=== PATIENT | male | born 1945 | race Caucasian/White ===

== ENCOUNTER 2016-12-04 06:55 | Inpatient (IN) ==
--- NOTE | 2016-12-04 07:15 | History and Physical Update ---
Sedation H&P Update - History and Physical H&P was reviewed, the patient examined and there: are no changes in the patients condition since last H&P was completed. - Dictation Physical: refer to scanned H&P - Physical Exam Mental Status: alert and oriented Heart: regular rate and rhythm Lung: clear to auscultation Abdomen: within normal limits Vitals: within normal limits - Sedation Plan for Sedation: moderate Patient Consent: Procedure disscussed with patient and patinet has consented., Risks and benefits were discussed with patient,including infection,, bleeding, injury to surrounding structures, seizure, temporary nerve, Patient understands and accepts potential risks/benefits and agrees to, proceed. ASA Class: II Airway Assessment: Class II: Soft palate, uvula, fauces visible
[2016-12-04] MEDS ORDERED: POTASSIUM CHLORIDE RIDER 10 MEQ in PREMIX 1 EACH IV PRN (07:32)
[2016-12-04] MEDS ORDERED: ASPIRIN 325 MG TABLET PO ONE (07:32)
[2016-12-04] MEDS ORDERED: MAGNESIUM SULF RIDER 2 GM in PREMIX 1 EACH IV PRN (07:32)
[2016-12-04] MEDS ORDERED: DIAZEPAM 5 MG TABLET PO ONE (07:32)
[2016-12-04] MEDS ORDERED: diphenhydrAMINE CAP 25 MG CAPSULE PO ONE (07:32)
[2016-12-04] MEDS ORDERED: ASPIRIN 325 MG TABLET ONE (08:05)
[2016-12-04] MEDS ORDERED: DIAZEPAM 5 MG TABLET ONE (08:05)
[2016-12-04] MEDS ORDERED: diphenhydrAMINE CAP 25 MG CAPSULE ONE (08:05)
[2016-12-04] MEDS: SODIUM CHLORIDE 0.9% 1,000 ML IV SCH ×2 (08:07→17:12)
--- NOTE | 2016-12-04 08:34 | XRay Report ---
XR chest 1V portable Indication: Left heart catheterization, preprocedure evaluation Comparison: 11 November 2016 Findings: The heart and mediastinum are stable in size and configuration. The pulmonary vascularity is normal in caliber. No lung infiltrates, effusions, pneumothorax or other abnormality is demonstrated. Impression: No acute cardiopulmonary findings. PROCEDURE INTERPRETED AT [facility] DEPARTMENT OF RADIOLOGY Final Report Signed by: Dr. Bryan Becerril
[2016-12-04] MEDS ORDERED: HYDROmorphone 2 MG/1 ML VIAL ONE (08:35)
[2016-12-04] MEDS ORDERED: LIDOCAINE 1% 20 ML VIAL ONE (09:08)
[2016-12-04] MEDS ORDERED: HEPARIN/NACL 0.9% 2 UNITS/ML 1,000 ML IV ONE (09:08)
[2016-12-04] MEDS ORDERED: MIDAZOLAM 2 MG/2 ML VIAL ONE (09:22)
[2016-12-04] MEDS ORDERED: ACETAMINOPHEN 325 MG TABLET PO PRN (10:56)
[2016-12-04] MEDS ORDERED: ONDANSETRON 4 MG/2 ML VIAL IV PRN (10:56)
[2016-12-04] MEDS ORDERED: NITROGLYCERIN SL 0.4 MG TABLET SL PRN (10:56)
[2016-12-04] MEDS ORDERED: ZALEPLON 5 MG CAPSULE PO PRN (10:56)
--- NOTE | 2016-12-04 10:56 | Cardiac Catheterization ---
Date of Procedure:: 12/04/16 Pre-op Diagnosis: CAD mitral regurgitation Post-op diagnosis: same Procedure: Cardiac catheterization procedure note #1 right heart catheterization with thermodilution cardiac outputs #2 left heart catheterization #3 selective coronary angiography #4 VAZQUEZ angiography #5 left ventricular Omnipaque was used for the procedure Description of procedure Following sterile preparation draping of the right groin local anesthesia was achieved by infiltration 1% Xylocaine. Using a Cook needle the right femoral vein was cannulated and a #7 sheath was inserted. Using a Cook needle the right femoral artery was cannulated and a #6 sheath was inserted. A [place] catheter was introduced into the femoral vein and advanced retrograde to the chamber the right heart to the pulmonary capillary wedge position where pressure was recorded. The catheter was then positioned in the main pulmonary artery where pressure was recorded and an O2 sat was obtained. Several thermodilution cardiac output determinations were then performed. Right-sided pullback pressures were then recorded. The [place] was removed. The right Amplatz catheter was introduced over guidewire and advanced to the ascending aorta where pressure was recorded and a sample was obtained for O2 sat determination. The right coronary artery was cannulated and angiography was performed in SALAMANCA and IRANIAN projections. Over a guidewire the catheter changed for a 6 Iraqi left Seda catheter in the left coronary artery was cannulated and angiography was performed in several SALAMANCA and IRANIAN projections. Overall guide was exchanged for a 6 Iraqi DANTE catheter and VAZQUEZ angiography was performed in IRANIAN projection only. The catheter and sheaths were then removed and the femoral artery site was sealed by direct compression with prompt cessation of bleeding and probably turn of the femoral foot pulses. No complications ensued. The patient was transferred to telemetry in stable condition. Hemodynamic data Mean right atrial pressure 15 RV 45/12 PA P 44/26 mean 32 Mean wedge 23 AO sat 97 PA set 73 Average cardiac output by thermodilution 2.8 L/min Cardiac index 1.5 L/min/m Aortic pressure 110/68 mean of 84 LV 110/22 Selective coronary angiography Left main trunk has a 60% mid vessel stenosis. The LAD is calcified and has a 95% ostial stenosis. The diagonal branch has mild disease only. There was a 90 % ostial circumflex stenosis. The first OM branch has 80% proximal stenosis. The dominant coronary artery is diffusely calcified with diffuse irregularities but remains patent. No volsn-lo-prpf collaterals demonstrated. The left internal mammary artery is a 2.5 mm nontortuous patent vessel. Left ventriculography The inferobasal segment is akinetic. The alla-apical segment is hypokinetic ejection fraction 40%. The left atrium is capacious. There is severe 4+ mitral regurgitation. Conclusions #1 increase LVEDP 22 #2 moderate pulmonary hypertension due to severe mitral regurgitation with mean right atrial pressure 15, PA pressure 44/26 mean of 32 and mean age 23 #3 severe 4+ mitral regurgitation which is chronic #4 no aortic valve gradient #5 ejection fraction 40% with anteroapical hypokinesis and inferobasal akinesis #6 left main trunk-60% mid #7 LAD-ostial 95% stenosis #8 diagonal-patent #9 ostial circumflex-90% stenosis #10 OM1-80% proximal stenosis #11 dominant right coronary-calcified with mild diffuse irregularities. No right to left collateral #11 VAZQUEZ-2.5 mm nontortuous patent Disposition This patient has severe left coronary artery disease involving the left main, and ostial LAD and circumflex. Ejection fraction 40% with anteroapical hypokinesis and inferobasal akinesis. He has severe 4+ mitral regurgitation and a capacious left atrium. Significant myocardium is at risk. Dr. Sean Polk has been consulted for combined multivessel CABG and MVR. Cine pictures have been reviewed with the patient's Jacqueline. Implants: No implants Anesthesia: moderate conscious sedation Surgeon / Physician: Giuseppe Schneider Estimated blood loss: minimal Specimens: none sent Condition: stable Disposition: floor - Medications / Follow-up
[2016-12-04] MEDS: ISOSORBIDE DINITRATE 20 MG TABLET PO SCH ×2 (11:25→21:17)
--- NOTE | 2016-12-04 15:44 | Cardiothoracic Consult ---
Assessment and Plan - Time spent with patient Time spent with patient: Greater than 30 minutes (1) Chest pain Status: Acute Assessment and plan: Risk Model and Variables - STS Adult Cardiac Surgery Database Version 2.81 RISK SCORES About the STS Risk Calculator Procedure: MV Replacement + CAB Risk of Mortality: 6.897% Morbidity or Mortality: 37.26% Long Length of Stay: 21.983% Short Length of Stay: 10.69% Permanent Stroke: 2.145% Prolonged Ventilation: 29.542% DSW Infection: 0.731% Renal Failure: 10.057% Reoperation: 17.518% 71-year-old male with severe mitral insufficiency as well as severe coronary artery disease. I discussed risks benefits and alternatives of a combined CABG and MVR with the patient and his . I explained that because it is a combined procedure it imposes a high risk of morbidity and mortality however the patient would need this procedure as otherwise deterioration of his coronary disease and his mitral valve with severely compromised his cardiac status. The patient and family understood and they are willing and eager to proceed. The patient has been Coumadin which I will stop today. I will start him on heparin drip tomorrow. I will start him on Lasix to improve his fluid status as well as his myocardial function over the next few days to tune him up for surgery. I plan on doing the surgery on Sunday 12/10. Current Visit: No History of Present Illness - Data of Consult Patient: new to practice Consult date: 12/04/16 - Consult Narrative Reason for consult: Severe mitral insufficiency, left main coronary artery disease History of present illness: Mr. Perez is a 71 year old male who has been having progressive shortness of breath over the past few months. The patient had an echo showed severe mitral insufficiency with deteriorating myocardial function down to 40%. He had a left heart cath today showing left main coronary artery disease 60% occlusion, 90% occlusion of his left anterior descending artery, circumflex disease 90% occlusion. I was consulted to evaluate for combined CABG and MVR. CC: Giuseppe Schneider MD - Home Medications and Allergies Home Medications: Home Medications Medication Instructions Recorded Confirmed Type Citalopram Hydrobromide 20 mg PO BID 03/20/15 12/04/16 History [Citalopram HBr] Furosemide Tab [Lasix Tab] 80 mg PO DAILY 03/20/15 12/04/16 History Gabapentin [Neurontin] 1,600 mg PO BID 03/20/15 12/04/16 History Levothyroxine Tab [Synthroid Tab] 25 mcg PO DAILY@0700 03/20/15 12/04/16 History Potassium Chloride [Klor-Con M20] 20 meq PO BID 03/20/15 12/04/16 History Tamsulosin HCl 0.4 mg PO BID 03/01/16 12/04/16 History Zolpidem Tartrate [Ambien] 10 mg PO BEDTIME 03/01/16 12/04/16 History Carvedilol 12.5 mg PO BID 11/11/16 12/04/16 History Lisinopril 10 mg PO DAILY 11/11/16 12/04/16 History Warfarin [Coumadin] 3 mg PO DAILY 12/04/16 12/04/16 History Allergies/Adverse Reactions: Allergies Allergy/AdvReac Type Severity Reaction Status Date / Time No Known Allergies Allergy Verified 12/04/16 07:41 12 point system: reviewed and no additional remarkable complaints except as stated (HPI) Medical,Surgical,& Family Hx - Medical History Cardio: History of: Cardiac Dysrhythmia (A.fib), CHF, CAD, Hypertension, Valvular Heart Disease Neurology: No history of: Seizures Endocrine: History of: Dyslipidemia, Thyroid Disorder Respiratory: History of: Pulmonary Embolism Musculoskeletal: History of: Back/Neck Problems (4 back surgeries) - Surgical History Cardiac Surgeries: Sugical HX of: Cardiac Catheterization HEENT Surgeries: Surgical HX of: Eye Surgery (Bilateral cataract) Abdominal Surgeries: Surgical HX of: Hernia Repair Orthopedic Surgeries: Surgical HX of;: Spinal Surgery (Back) - Family History Family History: Reports;: Family Cancer (brother), Family Heart Disease (father , mother), Family Hypertension (father) Denies;: Family Diabetes, Family Stroke - Social History Smoking Status: Former smoker Frequency of Alcohol Use: Occasionally Type of Drug Use: None Physical Examination Vital Signs Temp Pulse Resp BP Pulse Ox 98.4 F 72 14 93/55 95 12/04/16 07:45 12/04/16 07:45 12/04/16 07:45 12/04/16 07:45 12/04/16 07:45 General: Present: Appears Well HEENT: Present: PERRL Neck: Present: Supple Neck Cardiac: Present: Irregularly Regular Lungs: Present: Clear Ascult./Percussion Neuro: Present: Cranial Nerve 2-12 Intact Abdomen: Present: Soft, Active Bowel Sounds Quality Measures - VTE Contraindication to Mechanical VTE Prophylaxis: Trauma to Legs
[2016-12-04] MEDS ORDERED: ZALEPLON 5 MG CAPSULE PO SCH (21:00)
[2016-12-04] MEDS: GABAPENTIN 400 MG CAPSULE PO SCH (21:14)
[2016-12-04] MEDS: POTASSIUM CHLORIDE 20 MEQ TABLET PO SCH (21:14)
[2016-12-04] MEDS: CARVEDILOL 12.5 MG TABLET PO SCH (21:14)
[2016-12-04] MEDS: TAMSULOSIN 0.4 MG CAPSULE PO SCH (21:14)
[2016-12-04] MEDS: CITALOPRAM 20 MG TABLET PO SCH (21:14)
[2016-12-04] MEDS: ZOLPIDEM 5 MG TABLET PO SCH (21:14)
[2016-12-04] MEDS: CHLORHEXIDINE 0.12% ORAL RINSE 60 ML BOTTLE SWISH/SPIT SCH (21:17)
[2016-12-05] MEDS: SODIUM CHLORIDE 0.9% 1,000 ML IV SCH ×2 (00:24→14:00)
[2016-12-05] MEDS: LEVOTHYROXINE 25 MCG TABLET PO SCH (06:12)
[2016-12-05 06:34] LABS: Calcium 8.1 MG/DL (8.5-10.1); Osmolality,Calculated 287.7 MOS/KG (273-304); Potassium 4.2 MMOL/L (3.5-5.1)
[2016-12-05 06:38] LABS: Risk Ratio 2.98; VLDL CHOLESTEROL 16.4 MG/DL
[2016-12-05] MEDS: GABAPENTIN 400 MG CAPSULE PO SCH ×2 (08:48→20:39)
[2016-12-05] MEDS: ISOSORBIDE DINITRATE 20 MG TABLET PO SCH ×2 (08:48→20:39)
[2016-12-05] MEDS: TAMSULOSIN 0.4 MG CAPSULE PO SCH ×2 (08:48→20:39)
[2016-12-05] MEDS: POTASSIUM CHLORIDE 20 MEQ TABLET PO SCH ×2 (08:48→20:39)
[2016-12-05] MEDS: CARVEDILOL 12.5 MG TABLET PO SCH ×2 (08:48→20:39)
[2016-12-05] MEDS: CITALOPRAM 20 MG TABLET PO SCH ×2 (08:48→20:39)
[2016-12-05] MEDS: ASPIRIN EC 81 MG TABLET PO SCH (08:48)
[2016-12-05] MEDS: HEPARIN DRIP 25,000 UNITS/500 ML PREMIX IV SCH (08:49)
[2016-12-05] MEDS: FUROSEMIDE 40 MG/4 ML VIAL IV SCH ×2 (08:49→17:25)
[2016-12-05] MEDS ORDERED: LISINOPRIL 10 MG TABLET PO SCH (09:00)
[2016-12-05] MEDS ORDERED: FUROSEMIDE 80 MG TABLET PO SCH (09:00)
[2016-12-05] MEDS: CHLORHEXIDINE 0.12% ORAL RINSE 60 ML BOTTLE SWISH/SPIT SCH ×2 (09:11→20:40)
--- NOTE | 2016-12-05 12:49 | Cardiology Progress Note ---
Assessment and Plan - Time spent with patient Time spent with patient: Greater than 30 minutes (1) CAD (coronary artery disease) Status: Chronic Assessment and plan: SEE PLAN OF CARE LISTED BELOW Current Visit: Yes Qualifiers: Coronary Disease-Associated Artery/Lesion type: tribe artery [place] vs. transplanted heart: tribe heart Associated angina: with stable angina Qualified Code(s): I25.118 - Atherosclerotic heart disease of tribe coronary artery with other forms of angina pectoris (2) Mitral regurgitation Status: Chronic Assessment and plan: SEE PLAN OF CARE LISTED BELOW Current Visit: Yes Qualifiers: Cardiac valve disease etiology: nonrheumatic Qualified Code(s): I34.0 - Nonrheumatic mitral (valve) insufficiency (3) Dyslipidemia Status: Chronic Assessment and plan: SEE PLAN OF CARE LISTED BELOW Current Visit: Yes (4) High risk medication use Status: Chronic Assessment and plan: SEE PLAN OF CARE LISTED BELOW Current Visit: Yes (5) Bilateral carotid bruits Status: Chronic Assessment and plan: SEE PLAN OF CARE LISTED BELOW Current Visit: Yes (6) Ischemic cardiomyopathy Status: Chronic Assessment and plan: SEE PLAN OF CARE LISTED BELOW Current Visit: Yes (7) Hypertension Status: Chronic Assessment and plan: SEE PLAN OF CARE LISTED BELOW Current Visit: No (8) Atrial fibrillation Status: Chronic Assessment and plan: SEE PLAN OF CARE LISTED BELOW Current Visit: No Qualifiers: Atrial fibrillation type: chronic Qualified Code(s): I48.2 - Chronic atrial fibrillation Cardiology - PN: Subj Interval history: SUPERVISOR SAWMILL: DR. PINA SUMMARY: Mr. Hernandez, 71WM, was admitted for elective cardiac catheterization December 04, 2016. Identified was severe CAD involving the left main, LAD, circumflex and obtuse marginal coronary artery. EF 40%. Also confirmed with severe mitral regurgitation. Dr. Lees was consulted for consideration of CABG and MVR. He is currently scheduled for surgery Saturday, December 10, 2016. History of hypertension, dyslipidemia, atrial fibrillation with Coumadin for stroke prevention. Patient's last dose of Coumadin was Saturday, October 29, 2016. He is currently on IV Heparin while awaiting surgery. 2016: Patient is doing well today without chest pain, heaviness, tightness. He has been ambulating without difficulty. Labs are stable, right groin soft, free of hematoma or bruit. IV Heparin continues as we transition him to surgery off Coumadin. Systolic blood pressure averaging 90s. Will decrease his Lisinopril today. Dr. Lees has initiated Lasix in preparation for upcoming surgery. Initiating lipid-lowering agent. Will further discuss with Dr. Singh and await additional recommendations. IMPRESSION/PLAN: 1. CAD - severe 2 vessel CAD in need of CABG. Continue Aspirin, IV Heparin, beta sona, MAKAYLA inhibitor and statin. Scheduled for surgery Saturday, December 10, 2016. 2. MITRAL REGURGITATION, SEVERE - 4+ mitral regurgitation. Will also undergo mitral valve replacement Friday. 3. HYPERTENSION - blood pressure is actually low at this point. I will decrease his MAKAYLA inhibitor and continue to monitor his blood pressure. Adjust accordingly during hospital stay. 4. DYSLIPIDEMIA - Crestor 20mg orally each evening. Fasting lipid profile in the morning 5. ATRIAL FIBRILLATION -chronic for which he is taking Coumadin for stroke prevention. Last dose of Coumadin was Saturday, October 29, 2016. He is currently on IV Heparin for stroke prevention until the evening prior to surgery. 6. ISCHEMIC CARDIOMYOPATHY - EF 40%. Continue afterload reduction as able 7. CAROTID BRUITS - recent carotid ultrasounds at [facility] reveal no significant stenosis bilaterally 8. HIGH RISK MEDICATIONS - was taking Warfarin, now on heparin Exam (Progress Note) - Constitutional Vitals: Period Temp Pulse Resp BP Sys/Aragon Pulse Ox Last 24 Hr 97.6 F-98.7 F 66-79 16-20 82-107/51-66 91-100 Exam: General: [Appears well with no apparent distress.] [Pleasant and cooperative. ] [Appears comfortable.] HEENT: [PERRL, normocephalic, atraumatic. Mucous membranes moist. No jaundice noted. Conjunctiva moist and clear, sclerae anicteric] Neck: No JVD/HJR, no thyromegaly or lymphadenopathy noted. Soft bilateral carotid bruits. Cardiac: [Irregularly irregular rhythm, controlled rate. III/ holosystolic murmur heard best at fifth intercostal space to the left. Lungs: [Clear to auscultation without accessory muscle use to assist the respiratory pattern.] Not requiring oxygen Abdomen: Soft, bowel sounds normoactive. Nontender and nondistended. No abdominal bruit or thrill noted. No masses noted. Musculoskeletal: No fluid collection. Decreased range of motion is noted. Extremities: No clubbing, cyanosis noted. [ No edema noted.] Upper extremity pulses 2+. Lower extremity pulses 2+. Capillary refill less than 3 seconds. Skin: No unusual lesions or rashes. No skin breakdown appreciated. Neuro: Awake, alert and oriented 3. Moves all extremities well without hemiparesis or paralysis. No essential tremor is appreciated. Result/EKG - Labs CBC & BMP: 12/05/16 05:03 Lab Results: I have reviewed the past 24 hour labs Labs: Laboratory Results - last 24 hr 12/05/16 12/05/16 05:03 05:03 Sodium 145 Potassium 4.2 Chloride 110 H Carbon Dioxide 28 Anion Gap 11.2 BUN 15 Creatinine 0.90 GFR Calculation 91 BUN/Creatinine Ratio 16.00 Glucose 84 Calculated Osmolality 287.7 Calcium 8.1 L Triglycerides 82 Cholesterol 155 LDL Cholesterol 92.0 VLDL Cholesterol 16.4 HDL Cholesterol 52 Heart Disease Risk Ratio 2.98 - EKG EKG results: interpreted by me EKG shows: atrial fibrillation Quality Measures - VTE Contraindication to Mechanical VTE Prophylaxis: Trauma to Legs
[2016-12-05] MEDS: ZOLPIDEM 5 MG TABLET PO SCH (20:39)
[2016-12-05] MEDS: ROSUVASTATIN 20 MG TABLET PO SCH (20:39)
[2016-12-06 04:26] LABS: Basophils % 0.6 % (0.0-0.8); Eosinophils # 0.3 10*3/uL (0.0-0.87); Eosinophils % 5.9 % (0.00-10.9); Hematocrit 32.8 VOL% (42.0-52.0); Hemoglobin 11.2 GM/DL (14.0-18.0); Immature Granulocytes % 0.4 %; Immature Granulocytes Absolute 0.02 #; Lymphocytes # 1.2 10*3/uL (1.4-4.0); Mean Corpuscular HGB Conc 34.1 GM/DL (32-36); Mean Corpuscular Hemoglobin 34 PG (27-34); Mean Corpuscular Volume 99.4 FL (87-102); Monocytes # 0.4 10*3/uL (0.11-0.8); Neutrophils # 2.8 10*3/uL (1.4-7.4); Neutrophils % 59.1 % (38.7-73.9); Platelet Count 166 T/CUMM (130-400); Red Cell Distribution Width 12.9 % (9.3-17.3); White Blood Count 4.8 T/CUMM (4-12)
[2016-12-06 04:52] LABS: Calcium 7.9 MG/DL (8.5-10.1); Magnesium 2.3 MG/DL (1.8-2.4); Osmolality,Calculated 279.3 MOS/KG (273-304); Potassium 3.6 MMOL/L (3.5-5.1); Risk Ratio 2.65
[2016-12-06] MEDS: LEVOTHYROXINE 25 MCG TABLET PO SCH (06:08)
--- NOTE | 2016-12-06 08:20 | Ultrasound Report ---
Indication: Saphenous vein mapping for CABG Duplex scan of the bilateral lower extremity veins Technique: Duplex scan of the bilateral lower extremity veins using B-mode/grayscale imaging and Doppler spectral analysis and color flow Findings: Targeted ultrasound evaluation of the saphenous vein within both lower extremities was performed. On the right, the proximal saphenous vein is measures 5.1 mm diameter. At the knee, this measures 4 mm, and at the ankle this measures 2.9 mm. On the left, the proximal saphenous vein measures 5.2 mm diameter. At the knee, this measures 4.8 mm, and at the ankle, this measures 2.3 mm. Saphenous vein is widely patent and easily compressible throughout both lower extremities. Impression: Widely patent bilateral saphenous veins with measurements as detailed above. PROCEDURE INTERPRETED AT [facility] DEPARTMENT OF RADIOLOGY Final Report Signed by: Earnest Grady
[2016-12-06] MEDS ORDERED: LISINOPRIL 5 MG TABLET PO SCH (09:00)
[2016-12-06] MEDS: ISOSORBIDE DINITRATE 20 MG TABLET PO SCH ×2 (09:07→21:36)
[2016-12-06] MEDS: FUROSEMIDE 40 MG/4 ML VIAL IV SCH ×2 (09:07→15:53)
[2016-12-06] MEDS: CITALOPRAM 20 MG TABLET PO SCH ×2 (09:07→21:36)
[2016-12-06] MEDS: GABAPENTIN 400 MG CAPSULE PO SCH ×2 (09:07→21:36)
[2016-12-06] MEDS: CARVEDILOL 12.5 MG TABLET PO SCH ×2 (09:08→21:36)
[2016-12-06] MEDS: ASPIRIN EC 81 MG TABLET PO SCH (09:08)
[2016-12-06] MEDS: CHLORHEXIDINE 0.12% ORAL RINSE 60 ML BOTTLE SWISH/SPIT SCH ×2 (09:08→21:36)
[2016-12-06] MEDS: POTASSIUM CHLORIDE 20 MEQ TABLET PO SCH ×2 (09:08→21:36)
[2016-12-06] MEDS: TAMSULOSIN 0.4 MG CAPSULE PO SCH ×2 (09:08→21:36)
[2016-12-06] MEDS: HEPARIN DRIP 25,000 UNITS/500 ML PREMIX IV SCH (09:09)
--- NOTE | 2016-12-06 09:36 | Cardiothoracic Progress Note ---
Assessment and Plan (1) Chest pain Status: Acute Assessment and plan: 71-year-old male with severe ischemic mitral insufficiency and left main coronary artery disease. The patient has no complaints and he has no chest pain. He continues to be on heparin drip and high-dose Lasix. We will continue to monitor closely and improve his fluid balance prior to surgery which is scheduled for Friday. Current Visit: No Exam (Progress Note) - Constitutional Vitals: Period Temp Pulse Resp BP Sys/Aragon Pulse Ox Last 24 Hr 98.1 F-98.8 F 72-84 16-20 92-107/51-62 95-98 Result/EKG - Labs CBC & BMP: 12/06/16 03:43 12/06/16 03:43 Labs: Laboratory Results - last 24 hr 12/05/16 12/05/16 12/06/16 15:22 21:32 03:43 WBC 4.8 RBC 3.30 L Hgb 11.2 L Hct 32.8 L MCV 99.4 MCH 34 MCHC 34.1 RDW 12.9 Plt Count 166 MPV 10.0 Neut % (Auto) 59.1 Lymph % (Auto) 25.0 Mcleod % (Auto) 9.0 Eos % (Auto) 5.9 Baso % (Auto) 0.6 Neut # (Auto) 2.8 Lymph # (Auto) 1.2 L Mcleod # (Auto) 0.4 Eos # (Auto) 0.3 Baso # (Auto) 0.0 Immature Gran % 0.4 Nucleated RBC % 0.0 Immature Gran # 0.02 Nucleated RBCs # 0.00 Immature Plt Fraction 0.0 Circ Anticoag PTT 46.4 H 52.6 H Sodium Potassium Chloride Carbon Dioxide Anion Gap BUN Creatinine GFR Calculation BUN/Creatinine Ratio Glucose Calculated Osmolality Calcium Magnesium Triglycerides Cholesterol LDL Cholesterol VLDL Cholesterol HDL Cholesterol Heart Disease Risk Ratio 12/06/16 12/06/16 03:43 03:43 WBC RBC Hgb Hct MCV MCH MCHC RDW Plt Count MPV Neut % (Auto) Lymph % (Auto) Mcleod % (Auto) Eos % (Auto) Baso % (Auto) Neut # (Auto) Lymph # (Auto) Mcleod # (Auto) Eos # (Auto) Baso # (Auto) Immature Gran % Nucleated RBC % Immature Gran # Nucleated RBCs # Immature Plt Fraction Circ Anticoag PTT 56.2 H Sodium 141 Potassium 3.6 Chloride 106 Carbon Dioxide 28 Anion Gap 10.6 BUN 12 Creatinine 0.80 GFR Calculation 96 BUN/Creatinine Ratio 15.00 Glucose 89 Calculated Osmolality 279.3 Calcium 7.9 L Magnesium 2.3 Triglycerides 55 Cholesterol 151 LDL Cholesterol 94.0 VLDL Cholesterol 11.0 HDL Cholesterol 57 Heart Disease Risk Ratio 2.65 Quality Measures - VTE Contraindication to Mechanical VTE Prophylaxis: Trauma to Legs
--- NOTE | 2016-12-06 10:53 | Cardiology Progress Note ---
Assessment and Plan - Time spent with patient Time spent with patient: Greater than 30 minutes (1) CAD (coronary artery disease) Status: Chronic Assessment and plan: SEE PLAN OF CARE LISTED BELOW Current Visit: Yes Qualifiers: Coronary Disease-Associated Artery/Lesion type: three affiliated artery [place] vs. transplanted heart: three affiliated heart Associated angina: with stable angina Qualified Code(s): I25.118 - Atherosclerotic heart disease of three affiliated coronary artery with other forms of angina pectoris (2) Mitral regurgitation Status: Chronic Assessment and plan: SEE PLAN OF CARE LISTED BELOW Current Visit: Yes Qualifiers: Cardiac valve disease etiology: nonrheumatic Qualified Code(s): I34.0 - Nonrheumatic mitral (valve) insufficiency (3) Dyslipidemia Status: Chronic Assessment and plan: SEE PLAN OF CARE LISTED BELOW Current Visit: Yes (4) High risk medication use Status: Chronic Assessment and plan: SEE PLAN OF CARE LISTED BELOW Current Visit: Yes (5) Bilateral carotid bruits Status: Chronic Assessment and plan: SEE PLAN OF CARE LISTED BELOW Current Visit: Yes (6) Ischemic cardiomyopathy Status: Chronic Assessment and plan: SEE PLAN OF CARE LISTED BELOW Current Visit: Yes (7) Hypertension Status: Chronic Assessment and plan: SEE PLAN OF CARE LISTED BELOW Current Visit: No (8) Atrial fibrillation Status: Chronic Assessment and plan: SEE PLAN OF CARE LISTED BELOW Current Visit: No Qualifiers: Atrial fibrillation type: chronic Qualified Code(s): I48.2 - Chronic atrial fibrillation Cardiology - PN: Subj Interval history: CARDBOARD CUTTER: DR. PINA SUMMARY: Mr. Hernandez, 71WM, was admitted for elective cardiac catheterization December 04, 2016. Identified was severe CAD involving the left main, LAD, circumflex and obtuse marginal coronary artery. EF 40%. Also confirmed with severe mitral regurgitation. Dr. Lees was consulted for consideration of CABG and MVR. He is currently scheduled for surgery Saturday, December 10, 2016. History of hypertension, dyslipidemia, atrial fibrillation with Coumadin for stroke prevention. Patient's last dose of Coumadin was Saturday, October 29, 2016. He is currently on IV Heparin while awaiting surgery. 2016: Patient is doing well today without chest pain, heaviness, tightness. He has been ambulating without difficulty. Labs are stable, right groin soft, free of hematoma or bruit. IV Heparin continues as we transition him to surgery off Coumadin. Systolic blood pressure averaging 90s. Will decrease his Lisinopril today. Dr. Lees has initiated Lasix in preparation for upcoming surgery. Initiating lipid-lowering agent. Will further discuss with Dr. Singh and await additional recommendations. 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 He is feeling well, has been walking without chest pain, heaviness or tightness. Decreased dose of lisinopril last evening therefore will get a lower dose today as a systolic blood pressures been running 90s-100s. IV Heparin continues as we prepare him for mitral valve replacement and CABG on Friday. Greater than 30 minutes was spent today discussing numerous questions regarding upcoming surgery and recovery. Will further discuss with Dr. Glass and await additional recommendations. IMPRESSION/PLAN: 1. CAD - severe 2 vessel CAD in need of CABG. Continue Aspirin, IV Heparin, beta sona, MAKAYLA inhibitor and statin. Scheduled for surgery Saturday, December 10, 2016. No complaints of chest pain 2. MITRAL REGURGITATION, SEVERE - 4+ mitral regurgitation. Will also undergo mitral valve replacement Friday. 3. HYPERTENSION - decreased Lisinopril dose yesterday. Continue to monitor. 4. DYSLIPIDEMIA - Crestor 20mg orally each evening. LDL 94. 5. ATRIAL FIBRILLATION - chronic for which he had been taking Coumadin for stroke prevention. Last dose of Coumadin was Saturday, October 29, 2016. He is currently on IV Heparin for stroke prevention until the evening prior to surgery. 6. ISCHEMIC CARDIOMYOPATHY - EF 40%. Continue afterload reduction as able 7. CAROTID BRUITS - recent carotid ultrasounds at [facility] reveal no significant stenosis bilaterally 8. HIGH RISK MEDICATIONS - was taking Warfarin, now on Heparin Exam (Progress Note) - Constitutional Vitals: Period Temp Pulse Resp BP Sys/Aragon Pulse Ox Last 24 Hr 98.1 F-98.8 F 72-84 16-20 92-107/51-62 95-98 Exam: General: [Appears well with no apparent distress.] [Pleasant and cooperative. ] [Appears comfortable.] HEENT: [PERRL, normocephalic, atraumatic. Mucous membranes moist. No jaundice noted. Conjunctiva moist and clear, sclerae anicteric] Neck: No JVD/HJR, no thyromegaly or lymphadenopathy noted. Soft bilateral carotid bruits. Cardiac: [Irregularly irregular rhythm, controlled rate. III/ holosystolic murmur heard best at fifth intercostal space to the left. Lungs: [Clear to auscultation without accessory muscle use to assist the respiratory pattern.] Not requiring oxygen Abdomen: Soft, bowel sounds normoactive. Nontender and nondistended. No abdominal bruit or thrill noted. No masses noted. Musculoskeletal: No fluid collection. Decreased range of motion is noted. Extremities: No clubbing, cyanosis noted. [ No edema noted.] Upper extremity pulses 2+. Lower extremity pulses 2+. Capillary refill less than 3 seconds. Skin: No unusual lesions or rashes. No skin breakdown appreciated. Neuro: Awake, alert and oriented 3. Moves all extremities well without hemiparesis or paralysis. No essential tremor is appreciated. Result/EKG - Labs CBC & BMP: 12/06/16 03:43 12/06/16 03:43 Lab Results: I have reviewed the past 24 hour labs Labs: Laboratory Results - last 24 hr 12/05/16 12/05/16 12/06/16 15:22 21:32 03:43 WBC 4.8 RBC 3.30 L Hgb 11.2 L Hct 32.8 L MCV 99.4 MCH 34 MCHC 34.1 RDW 12.9 Plt Count 166 MPV 10.0 Neut % (Auto) 59.1 Lymph % (Auto) 25.0 [place] % (Auto) 9.0 Eos % (Auto) 5.9 Baso % (Auto) 0.6 Neut # (Auto) 2.8 Lymph # (Auto) 1.2 L [place] # (Auto) 0.4 Eos # (Auto) 0.3 Baso # (Auto) 0.0 Immature Gran % 0.4 Nucleated RBC % 0.0 Immature Gran # 0.02 Nucleated RBCs # 0.00 Immature Plt Fraction 0.0 Circ Anticoag PTT 46.4 H 52.6 H Sodium Potassium Chloride Carbon Dioxide Anion Gap BUN Creatinine GFR Calculation BUN/Creatinine Ratio Glucose Calculated Osmolality Calcium Magnesium Triglycerides Cholesterol LDL Cholesterol VLDL Cholesterol HDL Cholesterol Heart Disease Risk Ratio 12/06/16 12/06/16 03:43 03:43 WBC RBC Hgb Hct MCV MCH MCHC RDW Plt Count MPV Neut % (Auto) Lymph % (Auto) [place] % (Auto) Eos % (Auto) Baso % (Auto) Neut # (Auto) Lymph # (Auto) [place] # (Auto) Eos # (Auto) Baso # (Auto) Immature Gran % Nucleated RBC % Immature Gran # Nucleated RBCs # Immature Plt Fraction Circ Anticoag PTT 56.2 H Sodium 141 Potassium 3.6 Chloride 106 Carbon Dioxide 28 Anion Gap 10.6 BUN 12 Creatinine 0.80 GFR Calculation 96 BUN/Creatinine Ratio 15.00 Glucose 89 Calculated Osmolality 279.3 Calcium 7.9 L Magnesium 2.3 Triglycerides 55 Cholesterol 151 LDL Cholesterol 94.0 VLDL Cholesterol 11.0 HDL Cholesterol 57 Heart Disease Risk Ratio 2.65 - EKG EKG results: interpreted by me EKG shows: atrial fibrillation Quality Measures - VTE Contraindication to Mechanical VTE Prophylaxis: Trauma to Legs
[2016-12-06] MEDS: ZOLPIDEM 5 MG TABLET PO SCH (21:36)
[2016-12-06] MEDS: ROSUVASTATIN 20 MG TABLET PO SCH (21:36)
[2016-12-07 05:53] LABS: Basophils % 0.5 % (0.0-0.8); Eosinophils # 0.3 10*3/uL (0.0-0.87); Eosinophils % 6.4 % (0.00-10.9); Hematocrit 32.2 VOL% (42.0-52.0); Hemoglobin 11.2 GM/DL (14.0-18.0); Immature Granulocytes % 0.7 %; Immature Granulocytes Absolute 0.03 #; Lymphocytes # 0.9 10*3/uL (1.4-4.0); Lymphocytes % 21.5 % (21.2-54.2); Mean Corpuscular HGB Conc 34.8 GM/DL (32-36); Mean Corpuscular Hemoglobin 34 PG (27-34); Mean Corpuscular Volume 97.6 FL (87-102); Mean Platelet Volume 10.3 FL (9.6-12.0); Monocytes # 0.5 10*3/uL (0.11-0.8); Monocytes % 11.8 % (1.7-12.7); Neutrophils # 2.5 10*3/uL (1.4-7.4); Neutrophils % 59.1 % (38.7-73.9); Platelet Count 164 T/CUMM (130-400); Red Cell Distribution Width 12.9 % (9.3-17.3); White Blood Count 4.2 T/CUMM (4-12)
[2016-12-07] MEDS: LEVOTHYROXINE 25 MCG TABLET PO SCH (06:03)
[2016-12-07 06:26] LABS: Calcium 8.2 MG/DL (8.5-10.1); Magnesium 2.5 MG/DL (1.8-2.4); Osmolality,Calculated 282.1 MOS/KG (273-304); Potassium 3.8 MMOL/L (3.5-5.1)
[2016-12-07] MEDS: FUROSEMIDE 40 MG/4 ML VIAL IV SCH (09:01)
[2016-12-07] MEDS: CITALOPRAM 20 MG TABLET PO SCH ×2 (09:02→21:11)
[2016-12-07] MEDS: GABAPENTIN 400 MG CAPSULE PO SCH ×2 (09:02→21:11)
[2016-12-07] MEDS: CHLORHEXIDINE 0.12% ORAL RINSE 60 ML BOTTLE SWISH/SPIT SCH ×2 (09:03→21:11)
[2016-12-07] MEDS: ASPIRIN EC 81 MG TABLET PO SCH (09:03)
[2016-12-07] MEDS: TAMSULOSIN 0.4 MG CAPSULE PO SCH ×2 (09:03→21:11)
[2016-12-07] MEDS: ISOSORBIDE DINITRATE 20 MG TABLET PO SCH ×2 (09:03→21:11)
[2016-12-07] MEDS: POTASSIUM CHLORIDE 20 MEQ TABLET PO SCH ×2 (09:03→21:11)
[2016-12-07] MEDS: CARVEDILOL 12.5 MG TABLET PO SCH ×2 (09:04→21:11)
[2016-12-07] MEDS: HEPARIN DRIP 25,000 UNITS/500 ML PREMIX IV SCH (09:05)
--- NOTE | 2016-12-07 10:22 | Cardiology Progress Note ---
Assessment and Plan (1) Unstable angina pectoris Status: Acute Assessment and plan: 1. 71-year-old with severe mitral regurgitation, and critical distal left main disease which may be thrombotic extending into the LAD and circumflex who is asymptomatic on heparin infusion awaiting CABG/MVR Friday morning. 2. Hemodynamic is stable 3. Stable rhythm, no change. Current Visit: No (2) Mitral regurgitation Status: Chronic Current Visit: Yes Qualifiers: Cardiac valve disease etiology: nonrheumatic Qualified Code(s): I34.0 - Nonrheumatic mitral (valve) insufficiency (3) Ischemic cardiomyopathy Status: Chronic Current Visit: Yes Cardiology - PN: Subj Interval history: Mr. Perez has no complaints is very talkative as usual. He reports that he was able to walk around the nursing square without stopping "I did okay but I would want to do it again right afterwards". He is having no chest discomfort bleeding shortness of breath at rest. Exam (Progress Note) - Constitutional Vitals: Period Temp Pulse Resp BP Sys/Aragon Pulse Ox Last 24 Hr 97.6 F-98.8 F 68-84 18-20 85-118/49-72 94-97 General appearance: normal weight, no acute distress - Head Head exam: Present: normal inspection, normocephalic, atraumatic - Neck Neck exam: Present: normal inspection - Respiratory Respiratory exam: Absent: stridor, wheezes - Cardiovascular Cardiovascular exam: Present: regular rate and rhythm, systolic murmur. Absent : bradycardia, diastolic murmur - GI/Abdominal GI/Abdominal exam: Present: soft. Absent: tenderness - Extremities Exam Extremities exam: Absent: edema Result/EKG - Labs CBC & BMP: 12/07/16 05:04 12/07/16 05:04 Labs: Laboratory Results - last 24 hr 12/07/16 12/07/16 12/07/16 05:04 05:04 05:04 WBC 4.2 RBC 3.30 L Hgb 11.2 L Hct 32.2 L MCV 97.6 MCH 34 MCHC 34.8 RDW 12.9 Plt Count 164 MPV 10.3 Neut % (Auto) 59.1 Lymph % (Auto) 21.5 [place] % (Auto) 11.8 Eos % (Auto) 6.4 Baso % (Auto) 0.5 Neut # (Auto) 2.5 Lymph # (Auto) 0.9 L [place] # (Auto) 0.5 Eos # (Auto) 0.3 Baso # (Auto) 0.0 Immature Gran % 0.7 Nucleated RBC % 0.0 Immature Gran # 0.03 Nucleated RBCs # 0.00 Immature Plt Fraction 0.0 Circ Anticoag PTT 52.5 H Sodium 142 Potassium 3.8 Chloride 107 Carbon Dioxide 29 Anion Gap 9.8 BUN 15 Creatinine 0.80 GFR Calculation 96 BUN/Creatinine Ratio 18.00 Glucose 88 Calculated Osmolality 282.1 Calcium 8.2 L Magnesium 2.5 H Quality Measures - VTE Contraindication to Mechanical VTE Prophylaxis: Trauma to Legs
--- NOTE | 2016-12-07 14:48 | Cardiothoracic Progress Note ---
Assessment and Plan (1) Chest pain Status: Acute Assessment and plan: 71-year-old male with severe ischemic mitral insufficiency and left main coronary artery disease. The patient has no complaints and he has no chest pain. He continues to be on heparin drip and Lasix. We will continue to monitor closely and improve his fluid balance prior to surgery which is scheduled for Friday. Current Visit: No Exam (Progress Note) - Constitutional Vitals: Period Temp Pulse Resp BP Sys/Aragon Pulse Ox Last 24 Hr 97.6 F-98.8 F 68-84 18-20 85-118/49-72 94-97 Result/EKG - Labs CBC & BMP: 12/07/16 05:04 12/07/16 05:04 Labs: Laboratory Results - last 24 hr 12/07/16 12/07/16 12/07/16 05:04 05:04 05:04 WBC 4.2 RBC 3.30 L Hgb 11.2 L Hct 32.2 L MCV 97.6 MCH 34 MCHC 34.8 RDW 12.9 Plt Count 164 MPV 10.3 Neut % (Auto) 59.1 Lymph % (Auto) 21.5 [place] % (Auto) 11.8 Eos % (Auto) 6.4 Baso % (Auto) 0.5 Neut # (Auto) 2.5 Lymph # (Auto) 0.9 L [place] # (Auto) 0.5 Eos # (Auto) 0.3 Baso # (Auto) 0.0 Immature Gran % 0.7 Nucleated RBC % 0.0 Immature Gran # 0.03 Nucleated RBCs # 0.00 Immature Plt Fraction 0.0 Circ Anticoag PTT 52.5 H Sodium 142 Potassium 3.8 Chloride 107 Carbon Dioxide 29 Anion Gap 9.8 BUN 15 Creatinine 0.80 GFR Calculation 96 BUN/Creatinine Ratio 18.00 Glucose 88 Calculated Osmolality 282.1 Calcium 8.2 L Magnesium 2.5 H Quality Measures - VTE Contraindication to Mechanical VTE Prophylaxis: Trauma to Legs
[2016-12-07 16:05] LABS: Troponin I Only < 0.015 NG/ML (0.00-0.045)
[2016-12-07] MEDS: ROSUVASTATIN 20 MG TABLET PO SCH (21:11)
[2016-12-07] MEDS: ZOLPIDEM 5 MG TABLET PO SCH (21:11)
[2016-12-08 04:28] LABS: Basophils % 0.6 % (0.0-0.8); Eosinophils # 0.3 10*3/uL (0.0-0.87); Eosinophils % 6.6 % (0.00-10.9); Hematocrit 31.8 VOL% (42.0-52.0); Immature Granulocytes % 0.4 %; Immature Granulocytes Absolute 0.02 #; Lymphocytes # 1.2 10*3/uL (1.4-4.0); Lymphocytes % 25.7 % (21.2-54.2); Mean Corpuscular HGB Conc 34.6 GM/DL (32-36); Mean Corpuscular Hemoglobin 34 PG (27-34); Mean Corpuscular Volume 98.5 FL (87-102); Mean Platelet Volume 10.4 FL (9.6-12.0); Monocytes # 0.6 10*3/uL (0.11-0.8); Monocytes % 11.8 % (1.7-12.7); Neutrophils # 2.6 10*3/uL (1.4-7.4); Neutrophils % 54.9 % (38.7-73.9); Platelet Count 181 T/CUMM (130-400); Red Blood Count 3.23 MC/CUMM (3.8-5.5); Red Cell Distribution Width 13.2 % (9.3-17.3); White Blood Count 4.8 T/CUMM (4-12)
[2016-12-08 05:01] LABS: Calcium 8.4 MG/DL (8.5-10.1); Magnesium 2.4 MG/DL (1.8-2.4); Osmolality,Calculated 281.1 MOS/KG (273-304); Potassium 4.1 MMOL/L (3.5-5.1)
[2016-12-08] MEDS: LEVOTHYROXINE 25 MCG TABLET PO SCH (06:02)
--- NOTE | 2016-12-08 08:51 | Cardiology Progress Note ---
Assessment and Plan (1) Unstable angina pectoris Status: Acute Assessment and plan: 1. 71-year-old with severe mitral regurgitation, and critical distal left main disease which may be thrombotic extending into the LAD and circumflex who is asymptomatic on heparin infusion awaiting CABG/MVR Friday. 2. Hemodynamic is stable 3. Stable rhythm, no change. December 08, 2016: 1. Mr. Perez is asymptomatic and hemodynamically stable although he had one episode of brief chest discomfort while walking around the nurses station. I encouraged him to just do short walks, and if he has any discomfort to stop and to let someone know. 2. Thrombotic appearing left main disease extending into the LAD and circumflex on heparin infusion awaiting CABG/MVR Friday. 3. Stable atrial fibrillation with controlled rate. Current Visit: No (2) Mitral regurgitation Status: Chronic Current Visit: Yes Qualifiers: Cardiac valve disease etiology: nonrheumatic Qualified Code(s): I34.0 - Nonrheumatic mitral (valve) insufficiency (3) Ischemic cardiomyopathy Status: Chronic Current Visit: Yes Cardiology - PN: Subj Interval history: Mr. Perez is very talkative and pleasant with no complaints. He slept fairly well and has no shortness of breath palpitations dizziness or chest discomfort "except one time when I was walking around the floor". Exam (Progress Note) - Constitutional Vitals: Period Temp Pulse Resp BP Sys/Aragon Pulse Ox Last 24 Hr 96.6 F-98.9 F 72-88 16-20 87-116/49-72 95-99 General appearance: normal weight, no acute distress - Head Head exam: Present: normal inspection, normocephalic, atraumatic - Neck Neck exam: Present: normal inspection - Respiratory Respiratory exam: Present: rales. Absent: stridor, wheezes - Cardiovascular Cardiovascular exam: Present: irregular rhythm, systolic murmur. Absent: tachycardia - GI/Abdominal GI/Abdominal exam: Present: soft. Absent: tenderness - Extremities Exam Extremities exam: Absent: edema - Neurological Exam Neurological exam: Present: alert, oriented X3 Result/EKG - Labs CBC & BMP: 12/08/16 02:47 12/08/16 02:47 Labs: Laboratory Results - last 24 hr 12/07/16 12/08/16 12/08/16 14:52 02:47 02:47 WBC 4.8 RBC 3.23 L Hgb 11.0 L Hct 31.8 L MCV 98.5 MCH 34 MCHC 34.6 RDW 13.2 Plt Count 181 MPV 10.4 Neut % (Auto) 54.9 Lymph % (Auto) 25.7 [place] % (Auto) 11.8 Eos % (Auto) 6.6 Baso % (Auto) 0.6 Neut # (Auto) 2.6 Lymph # (Auto) 1.2 L [place] # (Auto) 0.6 Eos # (Auto) 0.3 Baso # (Auto) 0.0 Immature Gran % 0.4 Nucleated RBC % 0.0 Immature Gran # 0.02 Nucleated RBCs # 0.00 Immature Plt Fraction 0.0 Circ Anticoag PTT Sodium Potassium Chloride Carbon Dioxide Anion Gap BUN Creatinine GFR Calculation BUN/Creatinine Ratio Glucose Calculated Osmolality Calcium Magnesium Total Creatine Kinase 50 Troponin I < 0.015 Blood Type O POSITIVE Antibody Screen Negative Crossmatch See Detail 12/08/16 12/08/16 12/08/16 02:47 02:47 Unknown WBC RBC Hgb Hct MCV MCH MCHC RDW Plt Count MPV Neut % (Auto) Lymph % (Auto) [place] % (Auto) Eos % (Auto) Baso % (Auto) Neut # (Auto) Lymph # (Auto) [place] # (Auto) Eos # (Auto) Baso # (Auto) Immature Gran % Nucleated RBC % Immature Gran # Nucleated RBCs # Immature Plt Fraction Circ Anticoag PTT 51.9 H Sodium 142 Potassium 4.1 Chloride 106 Carbon Dioxide 31 Anion Gap 9.1 BUN 12 Creatinine 0.80 GFR Calculation 96 BUN/Creatinine Ratio 15.00 Glucose 83 Calculated Osmolality 281.1 Calcium 8.4 L Magnesium 2.4 Total Creatine Kinase Troponin I Blood Type O POSITIVE Antibody Screen Crossmatch Quality Measures - VTE Contraindication to Mechanical VTE Prophylaxis: Trauma to Legs
[2016-12-08] MEDS: ASPIRIN EC 81 MG TABLET PO SCH (09:55)
[2016-12-08] MEDS: TAMSULOSIN 0.4 MG CAPSULE PO SCH ×2 (09:55→21:09)
[2016-12-08] MEDS: CITALOPRAM 20 MG TABLET PO SCH ×2 (09:55→21:08)
[2016-12-08] MEDS: FUROSEMIDE 40 MG/4 ML VIAL IV SCH (09:55)
[2016-12-08] MEDS: ISOSORBIDE DINITRATE 20 MG TABLET PO SCH ×2 (09:55→21:09)
[2016-12-08] MEDS: GABAPENTIN 400 MG CAPSULE PO SCH ×2 (09:56→21:09)
[2016-12-08] MEDS: CHLORHEXIDINE 0.12% ORAL RINSE 60 ML BOTTLE SWISH/SPIT SCH ×2 (09:56→21:10)
[2016-12-08] MEDS: POTASSIUM CHLORIDE 20 MEQ TABLET PO SCH ×2 (09:56→21:09)
[2016-12-08] MEDS: CARVEDILOL 12.5 MG TABLET PO SCH ×2 (09:56→21:08)
[2016-12-08] MEDS: HEPARIN DRIP 25,000 UNITS/500 ML PREMIX IV SCH (10:02)
--- NOTE | 2016-12-08 12:31 | Cardiothoracic Progress Note ---
Assessment and Plan (1) Chest pain Status: Acute Assessment and plan: 71-year-old male with severe ischemic mitral insufficiency and left main coronary artery disease. The patient has no complaints and he has no chest pain. Combined CABG MVR on Friday. Stop Hep drip Friday at midnight. Current Visit: No Exam (Progress Note) - Constitutional Vitals: Period Temp Pulse Resp BP Sys/Aragon Pulse Ox Last 24 Hr 96.6 F-98.9 F 72-88 16-20 100-116/62-72 96-99 Result/EKG - Labs CBC & BMP: 12/08/16 02:47 12/08/16 02:47 Labs: Laboratory Results - last 24 hr 12/07/16 12/08/16 12/08/16 14:52 02:47 02:47 WBC 4.8 RBC 3.23 L Hgb 11.0 L Hct 31.8 L MCV 98.5 MCH 34 MCHC 34.6 RDW 13.2 Plt Count 181 MPV 10.4 Neut % (Auto) 54.9 Lymph % (Auto) 25.7 [place] % (Auto) 11.8 Eos % (Auto) 6.6 Baso % (Auto) 0.6 Neut # (Auto) 2.6 Lymph # (Auto) 1.2 L [place] # (Auto) 0.6 Eos # (Auto) 0.3 Baso # (Auto) 0.0 Immature Gran % 0.4 Nucleated RBC % 0.0 Immature Gran # 0.02 Nucleated RBCs # 0.00 Immature Plt Fraction 0.0 Circ Anticoag PTT Sodium Potassium Chloride Carbon Dioxide Anion Gap BUN Creatinine GFR Calculation BUN/Creatinine Ratio Glucose Calculated Osmolality Calcium Magnesium Total Creatine Kinase 50 Troponin I < 0.015 Blood Type O POSITIVE Antibody Screen Negative Crossmatch See Detail 12/08/16 12/08/16 12/08/16 02:47 02:47 Unknown WBC RBC Hgb Hct MCV MCH MCHC RDW Plt Count MPV Neut % (Auto) Lymph % (Auto) [place] % (Auto) Eos % (Auto) Baso % (Auto) Neut # (Auto) Lymph # (Auto) [place] # (Auto) Eos # (Auto) Baso # (Auto) Immature Gran % Nucleated RBC % Immature Gran # Nucleated RBCs # Immature Plt Fraction Circ Anticoag PTT 51.9 H Sodium 142 Potassium 4.1 Chloride 106 Carbon Dioxide 31 Anion Gap 9.1 BUN 12 Creatinine 0.80 GFR Calculation 96 BUN/Creatinine Ratio 15.00 Glucose 83 Calculated Osmolality 281.1 Calcium 8.4 L Magnesium 2.4 Total Creatine Kinase Troponin I Blood Type O POSITIVE Antibody Screen Crossmatch Quality Measures - VTE Contraindication to Mechanical VTE Prophylaxis: Trauma to Legs
[2016-12-08] MEDS: ZOLPIDEM 5 MG TABLET PO SCH (21:07)
[2016-12-08] MEDS: ROSUVASTATIN 20 MG TABLET PO SCH (21:08)
[2016-12-08] MEDS: CHLORHEXIDINE 4% SOLN 118 ML BOTTLE TOP SCH (21:11)
[2016-12-09 04:43] LABS: Basophils % 0.5 % (0.0-0.8); Eosinophils # 0.3 10*3/uL (0.0-0.87); Eosinophils % 5.4 % (0.00-10.9); Hematocrit 33.9 VOL% (42.0-52.0); Hemoglobin 11.5 GM/DL (14.0-18.0); Immature Granulocytes % 0.4 %; Immature Granulocytes Absolute 0.02 #; Lymphocytes # 1.3 10*3/uL (1.4-4.0); Lymphocytes % 23.4 % (21.2-54.2); Mean Corpuscular HGB Conc 33.9 GM/DL (32-36); Mean Corpuscular Hemoglobin 34 PG (27-34); Mean Corpuscular Volume 98.8 FL (87-102); Mean Platelet Volume 10.1 FL (9.6-12.0); Monocytes # 0.6 10*3/uL (0.11-0.8); Monocytes % 10.9 % (1.7-12.7); Neutrophils # 3.3 10*3/uL (1.4-7.4); Neutrophils % 59.4 % (38.7-73.9); Platelet Count 176 T/CUMM (130-400); Red Blood Count 3.43 MC/CUMM (3.8-5.5); White Blood Count 5.5 T/CUMM (4-12)
[2016-12-09 04:51] LABS: INR 1.1; PT Patient Result 11.4 SECS
[2016-12-09 05:18] LABS: Calcium 8.5 MG/DL (8.5-10.1); Magnesium 2.3 MG/DL (1.8-2.4); Osmolality,Calculated 282.1 MOS/KG (273-304); Potassium 3.8 MMOL/L (3.5-5.1)
[2016-12-09] MEDS: LEVOTHYROXINE 25 MCG TABLET PO SCH (08:10)
[2016-12-09] MEDS: CITALOPRAM 20 MG TABLET PO SCH ×2 (08:11→21:58)
[2016-12-09] MEDS: ASPIRIN EC 81 MG TABLET PO SCH (08:11)
[2016-12-09] MEDS: TAMSULOSIN 0.4 MG CAPSULE PO SCH ×2 (08:12→21:57)
[2016-12-09] MEDS: CARVEDILOL 12.5 MG TABLET PO SCH ×2 (08:12→21:57)
[2016-12-09] MEDS: POTASSIUM CHLORIDE 20 MEQ TABLET PO SCH ×2 (08:13→21:58)
[2016-12-09] MEDS: ISOSORBIDE DINITRATE 20 MG TABLET PO SCH ×2 (08:13→21:57)
[2016-12-09] MEDS: GABAPENTIN 400 MG CAPSULE PO SCH ×2 (08:14→21:57)
[2016-12-09] MEDS: CHLORHEXIDINE 0.12% ORAL RINSE 60 ML BOTTLE SWISH/SPIT SCH ×2 (08:16→23:00)
[2016-12-09] MEDS: CHLORHEXIDINE 4% SOLN 118 ML BOTTLE TOP SCH ×3 (08:17→23:00)
[2016-12-09] MEDS: FUROSEMIDE 40 MG/4 ML VIAL IV SCH (08:52)
[2016-12-09] MEDS: HEPARIN DRIP 25,000 UNITS/500 ML PREMIX IV SCH (12:18)
--- NOTE | 2016-12-09 13:40 | Cardiology Progress Note ---
<Gaby Gilbert E - Last Filed: 12/09/16 13:35> Assessment and Plan - Time spent with patient Time spent with patient: Greater than 30 minutes (1) CAD (coronary artery disease) Status: Chronic Assessment and plan: SEE PLAN OF CARE LISTED BELOW Current Visit: Yes Qualifiers: Coronary Disease-Associated Artery/Lesion type: j[place] artery [place] vs. transplanted heart: jena heart Associated angina: with stable angina Qualified Code(s): I25.118 - Atherosclerotic heart disease of jena coronary artery with other forms of angina pectoris (2) Mitral regurgitation Status: Chronic Assessment and plan: SEE PLAN OF CARE LISTED BELOW Current Visit: Yes Qualifiers: Cardiac valve disease etiology: nonrheumatic Qualified Code(s): I34.0 - Nonrheumatic mitral (valve) insufficiency (3) Dyslipidemia Status: Chronic Assessment and plan: SEE PLAN OF CARE LISTED BELOW Current Visit: Yes (4) High risk medication use Status: Chronic Assessment and plan: SEE PLAN OF CARE LISTED BELOW Current Visit: Yes (5) Bilateral carotid bruits Status: Chronic Assessment and plan: SEE PLAN OF CARE LISTED BELOW Current Visit: Yes (6) Ischemic cardiomyopathy Status: Chronic Assessment and plan: SEE PLAN OF CARE LISTED BELOW Current Visit: Yes (7) Hypertension Status: Chronic Assessment and plan: SEE PLAN OF CARE LISTED BELOW Current Visit: No (8) Atrial fibrillation Status: Chronic Assessment and plan: SEE PLAN OF CARE LISTED BELOW Current Visit: No Qualifiers: Atrial fibrillation type: chronic Qualified Code(s): I48.2 - Chronic atrial fibrillation Cardiology - PN: Subj Interval history: CONTAMINATED [employer] CONSULTANT: DR. PINA SUMMARY: Mr. Hernandez, 71WM, was admitted for elective cardiac catheterization December 04, 2016. Identified was severe CAD involving the left main, LAD, circumflex and obtuse marginal coronary artery. EF 40%. Also confirmed with severe mitral regurgitation. Dr. Lees was consulted for consideration of CABG and MVR. He is currently scheduled for surgery Saturday, December 10, 2016. History of hypertension, dyslipidemia, atrial fibrillation with Coumadin for stroke prevention. Patient's last dose of Coumadin was Saturday, October 29, 2016. 2016: Mr. Perez is awaiting surgery tomorrow (CABG and MVR). He will need SEPIDEH intraoperatively tomorrow. He has been maintained on IV Heparin and is ordered to be discontinued at midnight tonight. He denies chest pain, heaviness or tightness. Labs are stable. He has been ambulating without difficulty. Will further discuss with Dr. Valadez and await additional recommendations. IMPRESSION/PLAN: 1. CAD - severe 2 vessel CAD in need of CABG. Continue Aspirin, IV Heparin, beta sona, MAKAYLA inhibitor and statin. Scheduled for surgery tomorrow morning. Heparin scheduled for discontinuation at midnight tonight 2. MITRAL REGURGITATION, SEVERE - 4+ mitral regurgitation. Will also undergo mitral valve replacement Friday. Will need intraoperative SEPIDEH 3. HYPERTENSION - continue beta-sona. Lisinopril was discontinued due to hypotension. 4. DYSLIPIDEMIA - Crestor 20mg orally each evening. LDL 94. 5. ATRIAL FIBRILLATION - chronic for which he had been taking Coumadin for stroke prevention. Last dose of Coumadin was Saturday, October 29, 2016. He is currently on IV Heparin for stroke prevention until tonight at midnight. 6. ISCHEMIC CARDIOMYOPATHY - EF 40%. Continue afterload reduction as able 7. CAROTID BRUITS - recent carotid ultrasounds at [facility] reveal no significant stenosis bilaterally 8. HIGH RISK MEDICATIONS - was taking Warfarin, now on Heparin Exam (Progress Note) - Constitutional Vitals: Period Temp Pulse Resp BP Sys/Aragon Pulse Ox Last 24 Hr 96.9 F-98.9 F 65-84 14-20 92-115/53-69 90-94 Exam: General: [Appears well with no apparent distress.] [Pleasant and cooperative. ] [Appears comfortable.] HEENT: [PERRL, normocephalic, atraumatic. Mucous membranes moist. No jaundice noted. Conjunctiva moist and clear, sclerae anicteric] Neck: No JVD/HJR, no thyromegaly or lymphadenopathy noted. Soft bilateral carotid bruits. Cardiac: [Irregularly irregular rhythm, controlled rate. III/ holosystolic murmur heard best at fifth intercostal space to the left. Lungs: [Clear to auscultation without accessory muscle use to assist the respiratory pattern.] Not requiring oxygen Abdomen: Soft, bowel sounds normoactive. Nontender and nondistended. No abdominal bruit or thrill noted. No masses noted. Musculoskeletal: No fluid collection. Decreased range of motion is noted. Extremities: No clubbing, cyanosis noted. [ No edema noted.] Upper extremity pulses 2+. Lower extremity pulses 2+. Capillary refill less than 3 seconds. Skin: No unusual lesions or rashes. No skin breakdown appreciated. Neuro: Awake, alert and oriented 3. Moves all extremities well without hemiparesis or paralysis. No essential tremor is appreciated. Result/EKG - Labs CBC & BMP: 12/09/16 04:20 12/09/16 04:20 Lab Results: I have reviewed the past 24 hour labs Labs: Laboratory Results - last 24 hr 12/09/16 12/09/16 12/09/16 04:20 04:20 04:20 WBC 5.5 RBC 3.43 L Hgb 11.5 L Hct 33.9 L MCV 98.8 MCH 34 MCHC 33.9 RDW 13.0 Plt Count 176 MPV 10.1 Neut % (Auto) 59.4 Lymph % (Auto) 23.4 [place] % (Auto) 10.9 Eos % (Auto) 5.4 Baso % (Auto) 0.5 Neut # (Auto) 3.3 Lymph # (Auto) 1.3 L [place] # (Auto) 0.6 Eos # (Auto) 0.3 Baso # (Auto) 0.0 Immature Gran % 0.4 Nucleated RBC % 0.0 Immature Gran # 0.02 Nucleated RBCs # 0.00 Immature Plt Fraction 0.0 INR 1.1 PT Patient/Control Mix 11.4 D Circ Anticoag PTT 49.5 H Sodium Potassium Chloride Carbon Dioxide Anion Gap BUN Creatinine GFR Calculation BUN/Creatinine Ratio Glucose Calculated Osmolality Calcium Magnesium 12/09/16 04:20 WBC RBC Hgb Hct MCV MCH MCHC RDW Plt Count MPV Neut % (Auto) Lymph % (Auto) [place] % (Auto) Eos % (Auto) Baso % (Auto) Neut # (Auto) Lymph # (Auto) [place] # (Auto) Eos # (Auto) Baso # (Auto) Immature Gran % Nucleated RBC % Immature Gran # Nucleated RBCs # Immature Plt Fraction INR PT Patient/Control Mix Circ Anticoag PTT Sodium 142 Potassium 3.8 Chloride 106 Carbon Dioxide 31 Anion Gap 8.8 BUN 15 Creatinine 1.00 GFR Calculation 80 BUN/Creatinine Ratio 15.00 Glucose 86 Calculated Osmolality 282.1 Calcium 8.5 Magnesium 2.3 - Diagnostic Findings Procedure: Chest x-ray: report reviewed by me - EKG EKG results: interpreted by me EKG shows: atrial fibrillation Quality Measures - VTE Contraindication to Mechanical VTE Prophylaxis: Trauma to Legs <Marek Valadez - Last Filed: 12/09/16 15:55> Cardiology - PN: Subj Interval history: Patient personally reviewed and examined and chart reviewed. I discussed this case with Gaby Gilbert NP. He is for coronary bypass surgery mitral valve replacement tomorrow. The patient is clinically stable at this time. He has no new questions. Will follow up post procedure. Exam (Progress Note) - Constitutional Vitals: Period Temp Pulse Resp BP Sys/Aragon Pulse Ox Last 24 Hr 96.9 F-98.9 F 65-84 14-20 92-115/53-69 90-94 Result/EKG - Labs CBC & BMP: 12/09/16 04:20 12/09/16 04:20 Labs: Laboratory Results - last 24 hr 12/09/16 12/09/16 12/09/16 04:20 04:20 04:20 WBC 5.5 RBC 3.43 L Hgb 11.5 L Hct 33.9 L MCV 98.8 MCH 34 MCHC 33.9 RDW 13.0 Plt Count 176 MPV 10.1 Neut % (Auto) 59.4 Lymph % (Auto) 23.4 [place] % (Auto) 10.9 Eos % (Auto) 5.4 Baso % (Auto) 0.5 Neut # (Auto) 3.3 Lymph # (Auto) 1.3 L [place] # (Auto) 0.6 Eos # (Auto) 0.3 Baso # (Auto) 0.0 Immature Gran % 0.4 Nucleated RBC % 0.0 Immature Gran # 0.02 Nucleated RBCs # 0.00 Immature Plt Fraction 0.0 INR 1.1 PT Patient/Control Mix 11.4 D Circ Anticoag PTT 49.5 H Sodium Potassium Chloride Carbon Dioxide Anion Gap BUN Creatinine GFR Calculation BUN/Creatinine Ratio Glucose Calculated Osmolality Calcium Magnesium 12/09/16 04:20 WBC RBC Hgb Hct MCV MCH MCHC RDW Plt Count MPV Neut % (Auto) Lymph % (Auto) [place] % (Auto) Eos % (Auto) Baso % (Auto) Neut # (Auto) Lymph # (Auto) [place] # (Auto) Eos # (Auto) Baso # (Auto) Immature Gran % Nucleated RBC % Immature Gran # Nucleated RBCs # Immature Plt Fraction INR PT Patient/Control Mix Circ Anticoag PTT Sodium 142 Potassium 3.8 Chloride 106 Carbon Dioxide 31 Anion Gap 8.8 BUN 15 Creatinine 1.00 GFR Calculation 80 BUN/Creatinine Ratio 15.00 Glucose 86 Calculated Osmolality 282.1 Calcium 8.5 Magnesium 2.3
[2016-12-09] MEDS: ROSUVASTATIN 20 MG TABLET PO SCH (22:01)
[2016-12-09] MEDS: ZOLPIDEM 5 MG TABLET PO SCH (23:08)
[2016-12-10 04:07] LABS: Allen Test Positive; Pt O2 Delivery Device Room Air
[2016-12-10 04:10] LABS: ABG HCO3 27.6 MMOL/L (20-26); ABG Oxygen Saturation 95.9 % (95-100); ABG PCO2 42.6 MM HG (35-48); ABG PO2 81.5 MM HG (80-95); ABG TCO2 28.9 MMOL/L (23-27)
[2016-12-10] MEDS ORDERED: CEFUROXIME INJ 1,500 MG in SODIUM CHLORIDE 0.9% 50 ML IV ONE (04:30)
[2016-12-10] MEDS ORDERED: PAPAVERINE 60 MG/2 ML VIAL ONE (04:39)
[2016-12-10] MEDS ORDERED: VANCOMYCIN 1,000 MG VIAL ONE (04:39)
[2016-12-10] MEDS ORDERED: TISSUE ADHESIVE 1 EACH APPLICATOR TOP ONE (04:40)
[2016-12-10] MEDS: CHLORHEXIDINE 0.12% ORAL RINSE 60 ML BOTTLE SWISH/SPIT SCH ×3 (04:45→22:09)
[2016-12-10] MEDS: CHLORHEXIDINE 4% SOLN 118 ML BOTTLE TOP SCH ×2 (04:45→10:05)
[2016-12-10] MEDS ORDERED: FAMOTIDINE 20 MG TABLET PO ONE (05:19)
[2016-12-10] MEDS ORDERED: LORazepam 1 MG TABLET PO ONE (05:19)
[2016-12-10] MEDS: POTASSIUM CHLORIDE 20 MEQ TABLET PO SCH ×2 (05:30→10:05)
[2016-12-10] MEDS: ISOSORBIDE DINITRATE 20 MG TABLET PO SCH ×2 (05:31→10:05)
[2016-12-10] MEDS: LEVOTHYROXINE 25 MCG TABLET PO SCH ×2 (05:31→10:03)
[2016-12-10] MEDS: CARVEDILOL 12.5 MG TABLET PO SCH ×2 (05:31→10:04)
[2016-12-10 06:25] LABS: Partial Thromboplastin Time 29.6 SECS (0-40)
[2016-12-10 07:48] LABS: Apearance,Urine CLEAR (Clear); Bilirubin,Urine Negative (Negative); Blood, Urine Negative (Negative); Glucose,Urine (UA) Negative (Negative); Ketones,Urine Negative (Negative); Nitrite,Urine Negative (Negative); Protein,Urine Negative; RBC,Urine <1 /HPF (0-4); Urine Color Yellow (Yellow); WBC,Urine <1 /HPF (0-6)
[2016-12-10 07:50] LABS: ABG Base Excess 0.2 MMOL/L (-2.5-2.5); ABG HCO3 24.7 MMOL/L (20-26); ABG Oxygen Saturation 99.7 % (95-100); ABG PCO2 38.8 MM HG (35-48); ABG PH 7.411 (7.35-7.45); ABG TCO2 21.7 MMOL/L (23-27); Glucose Heart Surgery 92 MG/DL (74-106); Hemoglobin Heart Surgery 12.4 G/DL (14.0-18.0); Ionized Calcium Arterial 1.14 MMOL/L (1.21-1.46); PCO2 Patient Temp Arterial 38.8 MMHG; PH Patient Temp Arterial 7.411; Patient Temperature 37 CELCIUS; Potassium Heart/CVR 3.9 MMOL/L (3.5-5.1); Sodium Heart/CVR 139 MMOL/L (135-145)
--- NOTE | 2016-12-10 08:16 | Anesthesia Procedures ---
Anesthesia Procedures - Central Venous Insert Monitors Applied: pulse oximetry, EKG, BP cuff, oxygen via MSBT: pulse oximetry, EKG, BP cuff, oxygen via Procedure: after sterile technique was performed as outlined above, , ultrasound guidance was used to identify vessel, 18G introducer needle was passed into vessel under direct visualizatio (8.5 FR catheter left in, port attached to fluid, PA line passed withease), catheter sutured into place and the ports flushed with NS/hepflush, sterlie dressing applied including the antibiotic disc, vital signs were stable throughout procedure, no apparent complications were noted Ultrasound used: identify patency vessel, visualize needle entry to vessel Vein Cannulated: right internal juglar
[2016-12-10] MEDS ORDERED: SODIUM BICARBONATE 50 MEQ/50 ML SYRINGE IV ONE ×3 (09:12→21:48)
[2016-12-10] MEDS ORDERED: EPINEPHrine 1 MG/10 ML SYRINGE ONE (09:12)
[2016-12-10] MEDS ORDERED: CALCIUM CHLORIDE 1,000 MG/10 ML SYRINGE IV ONE ×2 (09:12→13:24)
[2016-12-10] MEDS ORDERED: ALBUMIN 5% 12.5 GM/250 ML VIAL IV ONE ×2 (09:12→13:40)
[2016-12-10] MEDS ORDERED: LIDOCAINE 100 MG/5 ML SYRINGE ONE (09:12)
[2016-12-10] MEDS ORDERED: ATROPINE 1 MG/1 ML VIAL ONE (09:13)
[2016-12-10] MEDS ORDERED: POTASSIUM CHLORIDE RIDER 100 ML IV ONE (09:13)
[2016-12-10 09:20] LABS: Hematocrit Heart Surgery 28.4 PERCENT (42-52); Hemoglobin Heart Surgery 9.2 G/DL (14.0-18.0); PCO2 Patient Temp Venous 34.7 MM HG; PH Patient Temp Venous 7.492; PO2 Patient Temp Venous 38.8 MM HG; Potassium Heart/CVR 4.6 MMOL/L (3.5-5.1); VBG Base Excess 3.4 MEQ/L (0-4); VBG HCO3 27.2 MEQ/L (24-28); VBG Oxygen Saturation 81.3 %; VBG PCO2 38.2 MMHG (41-51); VBG PH 7.462; VBG PO2 44.6 MMHG (17-40)
[2016-12-10 09:50] LABS: Hematocrit Heart Surgery 29.1 PERCENT (42-52); Hemoglobin Heart Surgery 9.4 G/DL (14.0-18.0); PCO2 Patient Temp Venous 31.6 MM HG; PH Patient Temp Venous 7.525; PO2 Patient Temp Venous 38.4 MM HG; Potassium Heart/CVR 4.3 MMOL/L (3.5-5.1); VBG Base Excess 3.7 MEQ/L (0-4); VBG HCO3 27.5 MEQ/L (24-28); VBG Oxygen Saturation 86.5 %; VBG PCO2 38.4 MMHG (41-51); VBG PH 7.464; VBG PO2 50.5 MMHG (17-40)
[2016-12-10] MEDS: TAMSULOSIN 0.4 MG CAPSULE PO SCH (10:04)
[2016-12-10] MEDS: CITALOPRAM 20 MG TABLET PO SCH (10:04)
[2016-12-10] MEDS: ASPIRIN EC 81 MG TABLET PO SCH (10:04)
[2016-12-10] MEDS: GABAPENTIN 400 MG CAPSULE PO SCH (10:06)
[2016-12-10] MEDS: FUROSEMIDE 40 MG/4 ML VIAL IV SCH (10:06)
[2016-12-10 10:34] LABS: Hemoglobin Heart Surgery 9.3 G/DL (14.0-18.0); PCO2 Patient Temp Venous 33.3 MM HG; PH Patient Temp Venous 7.52; Potassium Heart/CVR 4.9 MMOL/L (3.5-5.1); VBG Base Excess 3.7 MEQ/L (0-4); VBG HCO3 26.6 MEQ/L (24-28); VBG Oxygen Saturation 86.7 %; VBG PCO2 33.3 MMHG (41-51); VBG PH 7.52
[2016-12-10 11:04] LABS: Hematocrit Heart Surgery 27.6 PERCENT (42-52); Hemoglobin Heart Surgery 8.9 G/DL (14.0-18.0); PCO2 Patient Temp Venous 26.5 MM HG; PH Patient Temp Venous 7.572; PO2 Patient Temp Venous 33.5 MM HG; Potassium Heart/CVR 4.5 MMOL/L (3.5-5.1); VBG Base Excess 2.9 MEQ/L (0-4); VBG HCO3 26.8 MEQ/L (24-28); VBG Oxygen Saturation 84.9 %; VBG PCO2 33.7 MMHG (41-51); VBG PH 7.496; VBG PO2 47.3 MMHG (17-40)
[2016-12-10 11:42] LABS: Hematocrit Heart Surgery 26.6 PERCENT (42-52); Hemoglobin Heart Surgery 8.6 G/DL (14.0-18.0); PCO2 Patient Temp Venous 30.1 MM HG; PH Patient Temp Venous 7.517; PO2 Patient Temp Venous 33.4 MM HG; Potassium Heart/CVR 4.5 MMOL/L (3.5-5.1); VBG HCO3 25.9 MEQ/L (24-28); VBG Oxygen Saturation 77.7 %; VBG PCO2 34.9 MMHG (41-51); VBG PH 7.472; VBG PO2 41.2 MMHG (17-40)
[2016-12-10 12:25] LABS: ABG Base Excess -0.6 MMOL/L (-2.5-2.5); ABG Oxygen Saturation 99.5 % (95-100); ABG PCO2 37.7 MM HG (35-48); ABG PH 7.408 (7.35-7.45); ABG TCO2 21.7 MMOL/L (23-27); Glucose Heart Surgery 269 MG/DL (74-106); Hematocrit Heart Surgery 30.4 PERCENT (42-52); Hemoglobin Heart Surgery 9.8 G/DL (14.0-18.0); Ionized Calcium Arterial 1.77 MMOL/L (1.21-1.46); PCO2 Patient Temp Arterial 37.7 MMHG; PH Patient Temp Arterial 7.408; Patient Temperature 37 CELCIUS; Potassium Heart/CVR 3.2 MMOL/L (3.5-5.1); Sodium Heart/CVR 135 MMOL/L (135-145)
[2016-12-10] MEDS ORDERED: DEXTROSE 5% KCL 20 MEQ 40 MEQ/2,000 ML BAG IV ONE (12:51)
[2016-12-10] MEDS ORDERED: MANNITOL 100 GM/500 ML BAG IV ONE (12:51)
[2016-12-10] MEDS ORDERED: MAGNESIUM SULFATE 1 GM/2 ML VIAL ONE (12:52)
[2016-12-10] MEDS ORDERED: methylPREDNISolone SOD SUC 1,000 MG/8 ML VIAL ONE (12:52)
[2016-12-10] MEDS ORDERED: FUROSEMIDE 20 MG/2 ML VIAL ONE (12:52)
[2016-12-10] MEDS ORDERED: HEPARIN 10,000 UNIT/10 ML VIAL ONE (12:52)
[2016-12-10] MEDS ORDERED: PROTAMINE SULFATE 250 MG/25 ML VIAL IV ONE (12:52)
[2016-12-10] MEDS ORDERED: ALBUMIN 25% 25 GM/100 ML VIAL IV ONE (12:52)
[2016-12-10] MEDS ORDERED: POTASSIUM CHLORIDE 20 MEQ/10 ML VIAL ONE (12:53)
[2016-12-10] MEDS ORDERED: PHENYLEPHRINE 50 MG/5 ML VIAL ONE (12:53)
[2016-12-10] MEDS ORDERED: PHENYLEPHRINE DRIP 40 MG/250 ML PREMIX IV ONE (13:05)
[2016-12-10] MEDS: SODIUM CHLORIDE 0.45% 1,000 ML IV SCH (13:20)
[2016-12-10] MEDS: PHENYLEPHRINE DRIP 40 MG/250 ML PREMIX IV SCH (13:20)
[2016-12-10] MEDS: ALBUMIN 5% 12.5 GM in PREMIX 1 EACH IV PRN ×5 (13:31→18:10)
--- NOTE | 2016-12-10 13:36 | Anesthesia Post-Op ---
Anesthesia Post OP - Post Ansesthetic Evaluation Patient seen in post op: Yes Resp: within normal limits (pt remains ventilated) CV: within normal limits (remains on sergio and epi gtt) Mental: within normal limits (pt sedate) Temp: within normal limits [id number]: within normal limits Nausea and Vomiting: within normal limits Pain: within normal limits
[2016-12-10] MEDS ORDERED: SODIUM CHLORIDE 0.9% 250 ML IV PRN (13:37)
[2016-12-10] MEDS ORDERED: ONDANSETRON 4 MG/2 ML VIAL IV PRN (13:37)
[2016-12-10] MEDS ORDERED: INSULIN REGULAR DRIP 100 ML IV SCH (13:37)
[2016-12-10] MEDS ORDERED: INSULIN REGULAR 100 UNIT/ML IV PRN (13:37)
[2016-12-10] MEDS ORDERED: MIDAZOLAM 2 MG/2 ML VIAL IV PRN (13:37)
[2016-12-10] MEDS ORDERED: ACETAMINOPHEN 650 MG SUPP RECTAL PRN (13:37)
[2016-12-10] MEDS ORDERED: MORPHINE 10 MG/1 ML VIAL IV PRN (13:37)
[2016-12-10] MEDS ORDERED: CALCIUM CHLORIDE 1,000 MG/10 ML SYRINGE IV PRN (13:37)
[2016-12-10] MEDS ORDERED: DEXTROSE 50% 25 GM/50 ML VIAL IV PRN ×2 (13:37)
[2016-12-10] MEDS ORDERED: SODIUM CHLORIDE 0.45% 1,000 ML IV SCH (13:37)
[2016-12-10] MEDS ORDERED: SUFentanil 250 MCG/5 ML AMP ONE (13:40)
[2016-12-10] MEDS ORDERED: MIDAZOLAM 10 MG/2 ML VIAL ONE (13:40)
[2016-12-10] MEDS ORDERED: SEVOFLURANE 1 UNIT/15 MINUTE INH ONE (13:40)
[2016-12-10] MEDS ORDERED: HEPARIN/NACL 0.9% 2 UNITS/ML 500 ML IV ONE (13:46)
[2016-12-10 13:57] LABS: ABG Base Excess -1.9 MMOL/L (-2.5-2.5); ABG HCO3 22.8 MMOL/L (20-26); ABG Oxygen Saturation 99.4 % (95-100); ABG PCO2 34.8 MM HG (35-48); ABG PH 7.413 (7.35-7.45); ABG TCO2 20.4 MMOL/L (23-27); Glucose Heart Surgery 145 MG/DL (74-106); Hematocrit Heart Surgery 28.5 PERCENT (42-52); Hemoglobin Heart Surgery 9.2 G/DL (14.0-18.0); Potassium Heart/CVR 3.4 MMOL/L (3.5-5.1)
--- NOTE | 2016-12-10 14:00 | XRay Report ---
History: Endotracheal tube placement and line placement Date: 12/10/2016 at 1:27 PM Study: Chest x-ray AP portable Comparison exam: December 04, 2016 The right IJ [place] catheter is positioned with its tip over the level of the distal aspect of the main right pulmonary artery branch. The endotracheal tube is well-positioned with its tip superior to the vi. A nasogastric tube is positioned with its tip over the proximal stomach level. Chest drainage tubes overlie the mediastinum and left lung base. There is cardiomegaly. The mediastinal contours are stable for immediate postoperative appearance. There is a small amount of postoperative pneumomediastinum. There is some minor atelectatic change in the lower lungs, left more than right. There is no pneumothorax. There is mild left-sided pleural effusion. Osseous structures are unchanged. Impression: Satisfactory positioning of the supporting tubes. No pneumothorax. Small amount of postoperative pneumomediastinum, not unexpected. Mild left greater than right bibasilar atelectasis PROCEDURE INTERPRETED AT [facility] DEPARTMENT OF RADIOLOGY Final Report Signed by: Dr. Brittany Eaton
[2016-12-10 14:05] LABS: Basophils % 0.3 % (0.0-0.8); Eosinophils # 0.1 10*3/uL (0.0-0.87); Eosinophils % 0.6 % (0.00-10.9); Hematocrit 26.8 VOL% (42.0-52.0); Hemoglobin 9.5 GM/DL (14.0-18.0); Immature Granulocytes % 1.2 %; Immature Granulocytes Absolute 0.13 #; Lymphocytes # 0.6 10*3/uL (1.4-4.0); Lymphocytes % 5.8 % (21.2-54.2); Mean Corpuscular HGB Conc 35.4 GM/DL (32-36); Mean Corpuscular Hemoglobin 34 PG (27-34); Mean Corpuscular Volume 97.1 FL (87-102); Mean Platelet Volume 10.4 FL (9.6-12.0); Monocytes # 0.8 10*3/uL (0.11-0.8); Monocytes % 7.3 % (1.7-12.7); Neutrophils # 9.2 10*3/uL (1.4-7.4); Neutrophils % 84.8 % (38.7-73.9); Platelet Count 134 T/CUMM (130-400); Red Blood Count 2.76 MC/CUMM (3.8-5.5); Red Cell Distribution Width 13.8 % (9.3-17.3); White Blood Count 10.8 T/CUMM (4-12)
[2016-12-10 14:10] LABS: INR 1.3; PT Patient Result 13.5 SECS; Partial Thromboplastin Time 30.3 SECS (0-40)
[2016-12-10 14:16] LABS: VBG Base Excess 0.9 MEQ/L (0-4); VBG HCO3 25.7 MEQ/L (24-28); VBG Oxygen Saturation 56.6 %; VBG PCO2 42.1 MMHG (41-51); VBG PH 7.404; VBG PO2 25.8 MMHG (17-40)
[2016-12-10] MEDS: POTASSIUM CHLORIDE RIDER 20 MEQ in PREMIX 1 EACH IV PRN ×2 (14:18→15:39)
[2016-12-10 14:32] LABS: Calcium 11.5 MG/DL (8.5-10.1); Osmolality,Calculated 288.8 MOS/KG (273-304); Potassium 3.6 MMOL/L (3.5-5.1)
[2016-12-10] MEDS: SODIUM CHLORIDE 0.9% 1,000 ML IV PRN ×3 (14:41→16:42)
[2016-12-10 14:43] LABS: Lactic Acid 3.2 MMOL/L (0.4-2.0)
[2016-12-10] MEDS: MILRINONE 20 MG/100 ML PREMIX IV SCH (14:44)
[2016-12-10] MEDS ORDERED: LACTATED RINGERS 1,000 ML IV PRN (15:04)
[2016-12-10] MEDS ORDERED: POTASSIUM CHLORIDE RIDER 10 MEQ in PREMIX 1 EACH IV PRN (15:20)
[2016-12-10] MEDS ORDERED: MAGNESIUM SULF RIDER 2 GM in PREMIX 1 EACH IV PRN (15:46)
--- NOTE | 2016-12-10 16:11 | Cardiology Progress Note ---
<NuñezJaymie E - Last Filed: 12/10/16 16:11> Exam (Progress Note) - Constitutional Vitals: Period Temp Pulse Resp BP Sys/Aragon Pulse Ox Last 24 Hr 95.0 F-98.4 F 68-86 10-16 90-109/53-66 96-98 Result/EKG - Labs CBC & BMP: 12/10/16 13:48 12/10/16 13:48 Labs: Laboratory Results - last 24 hr 12/08/16 12/10/16 12/10/16 02:47 03:55 04:46 WBC RBC Hgb Hct MCV MCH MCHC RDW Plt Count MPV Neut % (Auto) Lymph % (Auto) [place] % (Auto) Eos % (Auto) Baso % (Auto) Neut # (Auto) Lymph # (Auto) [place] # (Auto) Eos # (Auto) Baso # (Auto) Immature Gran % Nucleated RBC % Immature Gran # Nucleated RBCs # Immature Plt Fraction INR 1.0 PT Patient/Control Mix 11.0 Circ Anticoag PTT 29.6 D Patient Temperature ABG pH 7.430 ABG pH at Pt Temp ABG pCO2 42.6 ABG pCO2 at Pt Temp ABG pO2 81.5 ABG pO2 at Pt Temp ABG HCO3 27.6 H ABG Total CO2 28.9 H ABG O2 Saturation 95.9 ABG Base Excess 3.0 H ABG Sodium VBG pH VBG pCO2 VBG pO2 VBG HCO3 VBG Total CO2 VBG O2 Saturation VBG Base Excess Hemoglobin Hematocrit Potassium Glucose Ionized Calcium FiO2 21.00 Sodium Chloride Carbon Dioxide Anion Gap BUN Creatinine GFR Calculation BUN/Creatinine Ratio POC Glucose Calculated Osmolality Lactic Acid Calcium Venous Ioniz Calcium Magnesium Urine Color Urine Appearance Urine pH Ur Specific [place] Urine Protein Urine Glucose (UA) Urine Ketones Urine Blood Urine Nitrate Urine Bilirubin Urine Urobilinogen Urine Leukocytes Urine RBC Urine WBC Ur Culture Indicated? Blood Type O POSITIVE Antibody Screen Negative Crossmatch See Detail 12/10/16 12/10/16 12/10/16 04:50 07:42 07:50 WBC RBC Hgb Hct MCV MCH MCHC RDW Plt Count 142 MPV Neut % (Auto) Lymph % (Auto) [place] % (Auto) Eos % (Auto) Baso % (Auto) Neut # (Auto) Lymph # (Auto) [place] # (Auto) Eos # (Auto) Baso # (Auto) Immature Gran % Nucleated RBC % Immature Gran # Nucleated RBCs # Immature Plt Fraction INR PT Patient/Control Mix Circ Anticoag PTT Patient Temperature ABG pH ABG pH at Pt Temp ABG pCO2 ABG pCO2 at Pt Temp ABG pO2 ABG pO2 at Pt Temp ABG HCO3 ABG Total CO2 ABG O2 Saturation ABG Base Excess ABG Sodium VBG pH VBG pCO2 VBG pO2 VBG HCO3 VBG Total CO2 VBG O2 Saturation VBG Base Excess Hemoglobin Hematocrit Potassium Glucose Ionized Calcium FiO2 Sodium Chloride Carbon Dioxide Anion Gap BUN Creatinine GFR Calculation BUN/Creatinine Ratio POC Glucose 85 Calculated Osmolality Lactic Acid Calcium Venous Ioniz Calcium Magnesium Urine Color Yellow Urine Appearance Clear Urine pH 6.0 Ur Specific [place] 1.010 Urine Protein Negative Urine Glucose (UA) Negative Urine Ketones Negative Urine Blood Negative Urine Nitrate Negative Urine Bilirubin Negative Urine Urobilinogen 4.0 H Urine Leukocytes Negative Urine RBC <1 Urine WBC <1 Ur Culture Indicated? Not indicated Blood Type Antibody Screen Crossmatch 12/10/16 12/10/16 12/10/16 07:52 09:17 09:45 WBC RBC Hgb Hct MCV MCH MCHC RDW Plt Count MPV Neut % (Auto) Lymph % (Auto) [place] % (Auto) Eos % (Auto) Baso % (Auto) Neut # (Auto) Lymph # (Auto) [place] # (Auto) Eos # (Auto) Baso # (Auto) Immature Gran % Nucleated RBC % Immature Gran # Nucleated RBCs # Immature Plt Fraction INR PT Patient/Control Mix Circ Anticoag PTT Patient Temperature 37 35 33 ABG pH 7.411 ABG pH at Pt Temp 7.411 7.492 7.525 ABG pCO2 38.8 ABG pCO2 at Pt Temp 38.8 34.7 31.6 ABG pO2 453.0 H ABG pO2 at Pt Temp 453.0 38.8 38.4 ABG HCO3 24.7 ABG Total CO2 21.7 L ABG O2 Saturation 99.7 ABG Base Excess 0.2 ABG Sodium 139 136 136 VBG pH 7.462 7.464 VBG pCO2 38.2 L 38.4 L VBG pO2 44.6 H 50.5 H VBG HCO3 27.2 27.5 VBG Total CO2 25.1 25.2 VBG O2 Saturation 81.3 86.5 VBG Base Excess 3.4 3.7 Hemoglobin 12.4 L 9.2 L D 9.4 L Hematocrit 38.0 L 28.4 L 29.1 L Potassium 3.9 4.6 4.3 Glucose 92 216 H 223 H Ionized Calcium 1.14 L FiO2 80.00 80.00 Sodium Chloride Carbon Dioxide Anion Gap BUN Creatinine GFR Calculation BUN/Creatinine Ratio POC Glucose Calculated Osmolality Lactic Acid Calcium Venous Ioniz Calcium 0.99 L 1.01 L Magnesium Urine Color Urine Appearance Urine pH Ur Specific [place] Urine Protein Urine Glucose (UA) Urine Ketones Urine Blood Urine Nitrate Urine Bilirubin Urine Urobilinogen Urine Leukocytes Urine RBC Urine WBC Ur Culture Indicated? Blood Type Antibody Screen Crossmatch 12/10/16 12/10/16 12/10/16 10:30 11:02 11:39 WBC RBC Hgb Hct MCV MCH MCHC RDW Plt Count MPV Neut % (Auto) Lymph % (Auto) [place] % (Auto) Eos % (Auto) Baso % (Auto) Neut # (Auto) Lymph # (Auto) [place] # (Auto) Eos # (Auto) Baso # (Auto) Immature Gran % Nucleated RBC % Immature Gran # Nucleated RBCs # Immature Plt Fraction INR PT Patient/Control Mix Circ Anticoag PTT Patient Temperature 37 32 34 ABG pH ABG pH at Pt Temp 7.520 7.572 7.517 ABG pCO2 ABG pCO2 at Pt Temp 33.3 26.5 30.1 ABG pO2 ABG pO2 at Pt Temp 44.0 33.5 33.4 ABG HCO3 ABG Total CO2 ABG O2 Saturation ABG Base Excess ABG Sodium 128 L 132 L 129 L VBG pH 7.520 7.496 7.472 VBG pCO2 33.3 L 33.7 L 34.9 L VBG pO2 44.0 H 47.3 H 41.2 H VBG HCO3 26.6 26.8 25.9 VBG Total CO2 27.6 24.0 23.6 VBG O2 Saturation 86.7 84.9 77.7 VBG Base Excess 3.7 2.9 2.0 Hemoglobin 9.3 L 8.9 L 8.6 L Hematocrit 27.0 L 27.6 L 26.6 L Potassium 4.9 4.5 4.5 Glucose 391 H 382 H 361 H Ionized Calcium FiO2 80.00 60.00 80.00 Sodium Chloride Carbon Dioxide Anion Gap BUN Creatinine GFR Calculation BUN/Creatinine Ratio POC Glucose Calculated Osmolality Lactic Acid Calcium Venous Ioniz Calcium 0.95 1.01 L 0.98 L Magnesium Urine Color Urine Appearance Urine pH Ur Specific [place] Urine Protein Urine Glucose (UA) Urine Ketones Urine Blood Urine Nitrate Urine Bilirubin Urine Urobilinogen Urine Leukocytes Urine RBC Urine WBC Ur Culture Indicated? Blood Type Antibody Screen Crossmatch 12/10/16 12/10/16 12/10/16 12:19 12:20 12:57 WBC RBC Hgb Hct MCV MCH MCHC RDW Plt Count 101 L D MPV Neut % (Auto) Lymph % (Auto) [place] % (Auto) Eos % (Auto) Baso % (Auto) Neut # (Auto) Lymph # (Auto) [place] # (Auto) Eos # (Auto) Baso # (Auto) Immature Gran % Nucleated RBC % Immature Gran # Nucleated RBCs # Immature Plt Fraction INR PT Patient/Control Mix Circ Anticoag PTT Patient Temperature 37 ABG pH 7.408 ABG pH at Pt Temp 7.408 ABG pCO2 37.7 ABG pCO2 at Pt Temp 37.7 ABG pO2 374.0 H ABG pO2 at Pt Temp 374.0 ABG HCO3 24.0 ABG Total CO2 21.7 L ABG O2 Saturation 99.5 ABG Base Excess -0.6 ABG Sodium 135 VBG pH 7.404 VBG pCO2 42.1 VBG pO2 25.8 VBG HCO3 25.7 VBG Total CO2 27.0 VBG O2 Saturation 56.6 VBG Base Excess 0.9 Hemoglobin 9.8 L Hematocrit 30.4 L Potassium 3.2 L Glucose 269 H Ionized Calcium 1.77 H FiO2 Sodium Chloride Carbon Dioxide Anion Gap BUN Creatinine GFR Calculation BUN/Creatinine Ratio POC Glucose Calculated Osmolality Lactic Acid Calcium Venous Ioniz Calcium Magnesium Urine Color Urine Appearance Urine pH Ur Specific [place] Urine Protein Urine Glucose (UA) Urine Ketones Urine Blood Urine Nitrate Urine Bilirubin Urine Urobilinogen Urine Leukocytes Urine RBC Urine WBC Ur Culture Indicated? Blood Type Antibody Screen Crossmatch 12/10/16 12/10/16 12/10/16 13:48 13:48 13:48 WBC 10.8 D RBC 2.76 L Hgb 9.5 L D Hct 26.8 L MCV 97.1 MCH 34 MCHC 35.4 RDW 13.8 Plt Count 134 D MPV 10.4 Neut % (Auto) 84.8 H Lymph % (Auto) 5.8 L [place] % (Auto) 7.3 Eos % (Auto) 0.6 Baso % (Auto) 0.3 Neut # (Auto) 9.2 H Lymph # (Auto) 0.6 L [place] # (Auto) 0.8 Eos # (Auto) 0.1 Baso # (Auto) 0.0 Immature Gran % 1.2 Nucleated RBC % 0.0 Immature Gran # 0.13 Nucleated RBCs # 0.00 Immature Plt Fraction 0.0 INR PT Patient/Control Mix Circ Anticoag PTT Patient Temperature ABG pH 7.413 ABG pH at Pt Temp ABG pCO2 34.8 L ABG pCO2 at Pt Temp ABG pO2 195.0 H ABG pO2 at Pt Temp ABG HCO3 22.8 ABG Total CO2 20.4 L ABG O2 Saturation 99.4 ABG Base Excess -1.9 ABG Sodium VBG pH VBG pCO2 VBG pO2 VBG HCO3 VBG Total CO2 VBG O2 Saturation VBG Base Excess Hemoglobin 9.2 L Hematocrit 28.5 L Potassium 3.4 L 3.6 Glucose 145 H 151 H Ionized Calcium FiO2 Sodium 144 Chloride 111 H Carbon Dioxide 25 Anion Gap 11.6 BUN 12 Creatinine 0.90 GFR Calculation 91 BUN/Creatinine Ratio 13.00 POC Glucose Calculated Osmolality 288.8 Lactic Acid 3.2 H Calcium 11.5 H D Venous Ioniz Calcium Magnesium Urine Color Urine Appearance Urine pH Ur Specific [place] Urine Protein Urine Glucose (UA) Urine Ketones Urine Blood Urine Nitrate Urine Bilirubin Urine Urobilinogen Urine Leukocytes Urine RBC Urine WBC Ur Culture Indicated? Blood Type Antibody Screen Crossmatch 12/10/16 12/10/16 13:48 13:48 WBC RBC Hgb Hct MCV MCH MCHC RDW Plt Count MPV Neut % (Auto) Lymph % (Auto) [place] % (Auto) Eos % (Auto) Baso % (Auto) Neut # (Auto) Lymph # (Auto) [place] # (Auto) Eos # (Auto) Baso # (Auto) Immature Gran % Nucleated RBC % Immature Gran # Nucleated RBCs # Immature Plt Fraction INR 1.3 PT Patient/Control Mix 13.5 D Circ Anticoag PTT 30.3 Patient Temperature ABG pH ABG pH at Pt Temp ABG pCO2 ABG pCO2 at Pt Temp ABG pO2 ABG pO2 at Pt Temp ABG HCO3 ABG Total CO2 ABG O2 Saturation ABG Base Excess ABG Sodium VBG pH VBG pCO2 VBG pO2 VBG HCO3 VBG Total CO2 VBG O2 Saturation VBG Base Excess Hemoglobin Hematocrit Potassium Glucose Ionized Calcium FiO2 Sodium Chloride Carbon Dioxide Anion Gap BUN Creatinine GFR Calculation BUN/Creatinine Ratio POC Glucose Calculated Osmolality Lactic Acid Calcium Venous Ioniz Calcium Magnesium 2.3 Urine Color Urine Appearance Urine pH Ur Specific [place] Urine Protein Urine Glucose (UA) Urine Ketones Urine Blood Urine Nitrate Urine Bilirubin Urine Urobilinogen Urine Leukocytes Urine RBC Urine WBC Ur Culture Indicated? Blood Type Antibody Screen Crossmatch Quality Measures - VTE Contraindication to Pharmacological VTE Prophylaxis: Active Bleeding <AnabaptistPatricia carr - Last Filed: 12/10/16 17:07> Assessment and Plan (1) CAD (coronary artery disease) Status: Chronic Assessment and plan: SEE PLAN OF CARE LISTED BELOW. Current Visit: Yes Qualifiers: Coronary Disease-Associated Artery/Lesion type: [place] artery [place] vs. transplanted heart: [place] heart Associated angina: with stable angina Qualified Code(s): I25.118 - Atherosclerotic heart disease of [place] coronary artery with other forms of angina pectoris (2) Bilateral carotid bruits Status: Chronic Assessment and plan: SEE PLAN OF CARE LISTED BELOW. Current Visit: Yes (3) Dyslipidemia Status: Chronic Assessment and plan: SEE PLAN OF CARE LISTED BELOW. Current Visit: Yes (4) High risk medication use Status: Chronic Assessment and plan: SEE PLAN OF CARE LISTED BELOW. Current Visit: Yes (5) Ischemic cardiomyopathy Status: Chronic Assessment and plan: SEE PLAN OF CARE LISTED BELOW. Current Visit: Yes (6) Mitral regurgitation Status: Chronic Assessment and plan: SEE PLAN OF CARE LISTED BELOW. Current Visit: Yes Qualifiers: Cardiac valve disease etiology: nonrheumatic Qualified Code(s): I34.0 - Nonrheumatic mitral (valve) insufficiency (7) Atrial fibrillation Status: Chronic Assessment and plan: SEE PLAN OF CARE LISTED BELOW. Current Visit: No Qualifiers: Atrial fibrillation type: chronic Qualified Code(s): I48.2 - Chronic atrial fibrillation (8) Chronic anticoagulation Status: Chronic Assessment and plan: SEE PLAN OF CARE LISTED BELOW. Current Visit: No (9) Hypertension Status: Chronic Assessment and plan: SEE PLAN OF CARE LISTED BELOW. Current Visit: No (10) S/P MVR (mitral valve replacement) Status: Acute Assessment and plan: SEE PLAN OF CARE LISTED BELOW. Current Visit: Yes (11) S/P CABG x 1 Status: Acute Assessment and plan: SEE PLAN OF CARE LISTED BELOW. 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 PINA SUMMARY: Mr. Hernandez, 71WM, was admitted for elective cardiac catheterization December 04, 2016. Identified was severe CAD involving the left main, LAD, circumflex and obtuse marginal coronary artery. EF 40%. Also confirmed with severe mitral regurgitation. Dr. Lees was consulted for consideration of CABG and MVR. He is currently scheduled for surgery Saturday, December 10, 2016. History of hypertension, dyslipidemia, atrial fibrillation with Coumadin for stroke prevention. Patient's last dose of Coumadin was Saturday, October 29, 2016. 2016: Patient is doing well postoperatively. He was seen and examined in the CVR. He remains intubated, appears comfortable. He continues to require low-dose vasopressors. 2 chest tubes intact. Patient is in atrial fibrillation, this is chronic. Rate controlled. At this point, patient is recovering well. Will attempt to reinitiate beta blockade and MAKAYLA inhibitor when blood pressure will tolerate. Recommend reinitiation of aspirin and Coumadin when okay from a surgical standpoint. I will further discuss with Dr. Valadez and await his additional recommendations. IMPRESSION/PLAN: 1. TWO-VESSEL CAD, STATUS POST CABG 1, VAZQUEZ TO LAD - Now status post revascularization with VAZQUEZ to LAD. Patient is doing well postoperatively. Recommend reinitiation of beta blockade and MAKAYLA inhibitor when blood pressure will tolerate. Also recommend reinitiation of aspirin when okay from a surgical standpoint. 2. MITRAL REGURGITATION, SEVERE - 4+ mitral regurgitation. Now status post MVR with bioprosthetic valve. 3. HYPERTENSION - Postoperatively, patient has been hypotensive requiring vasopressors. Recommend reinitiation of antihypertensives when blood pressure will allow. 4. DYSLIPIDEMIA - Crestor 20mg orally each evening. LDL 94. 5. ATRIAL FIBRILLATION, CHRONIC - Chronic for which he had been taking Coumadin for stroke prevention. Last dose of Coumadin was Saturday, October 29, 2016. Recommend reinitiation of Coumadin when okay from a surgical standpoint to reduce patient stroke risk. 6. ISCHEMIC CARDIOMYOPATHY - EF 40%. Continue afterload reduction when blood pressure will allow. 7. CAROTID BRUITS - recent carotid ultrasounds at [facility] reveal no significant stenosis bilaterally 8. HIGH RISK MEDICATIONS - Holding Coumadin. This needs to be reinitiated when stable from a surgical standpoint. Exam (Progress Note) - Constitutional Vitals: Period Temp Pulse Resp BP Sys/Aragon Pulse Ox Last 24 Hr 95.0 F-98.4 F 68-86 10-16 84-109/51-66 96-100 Exam: General: Appears comfortable on the ventilator. HEENT: normocephalic, atraumatic. Mucous membranes moist. No jaundice noted. Conjunctiva moist and clear, sclerae anicteric Neck: No JVD/HJR, no thyromegaly or lymphadenopathy noted. Cardiac: Irregular rhythm, rate controlled. Chest tubes intact. Lungs: Clear to auscultation. Mechanically ventilated. Abdomen: Soft. No audible bowel sounds. Nontender and nondistended. Extremities: No clubbing, cyanosis noted. No edema. Upper extremity pulses 2+ . Lower extremity pulses 2+. Capillary refill less than 3 seconds. Skin: No unusual lesions or rashes. No skin breakdown appreciated. Neuro: Unable to assess as patient is sedated on the ventilator. Result/EKG - Labs CBC & BMP: 12/10/16 13:48 12/10/16 13:48 Lab Results: I have reviewed the past 24 hour labs Labs: Laboratory Results - last 24 hr 12/08/16 12/10/16 12/10/16 02:47 03:55 04:46 WBC RBC Hgb Hct MCV MCH MCHC RDW Plt Count MPV Neut % (Auto) Lymph % (Auto) [place] % (Auto) Eos % (Auto) Baso % (Auto) Neut # (Auto) Lymph # (Auto) [place] # (Auto) Eos # (Auto) Baso # (Auto) Immature Gran % Nucleated RBC % Immature Gran # Nucleated RBCs # Immature Plt Fraction INR 1.0 PT Patient/Control Mix 11.0 Circ Anticoag PTT 29.6 D Patient Temperature ABG pH 7.430 ABG pH at Pt Temp ABG pCO2 42.6 ABG pCO2 at Pt Temp ABG pO2 81.5 ABG pO2 at Pt Temp ABG HCO3 27.6 H ABG Total CO2 28.9 H ABG O2 Saturation 95.9 ABG Base Excess 3.0 H ABG Sodium VBG pH VBG pCO2 VBG pO2 VBG HCO3 VBG Total CO2 VBG O2 Saturation VBG Base Excess Hemoglobin Hematocrit Potassium Glucose Ionized Calcium FiO2 21.00 Sodium Chloride Carbon Dioxide Anion Gap BUN Creatinine GFR Calculation BUN/Creatinine Ratio POC Glucose Calculated Osmolality Lactic Acid Calcium Venous Ioniz Calcium Magnesium Urine Color Urine Appearance Urine pH Ur Specific [place] Urine Protein Urine Glucose (UA) Urine Ketones Urine Blood Urine Nitrate Urine Bilirubin Urine Urobilinogen Urine Leukocytes Urine RBC Urine WBC Ur Culture Indicated? Blood Type O POSITIVE Antibody Screen Negative Crossmatch See Detail 12/10/16 12/10/16 12/10/16 04:50 07:42 07:50 WBC RBC Hgb Hct MCV MCH MCHC RDW Plt Count 142 MPV Neut % (Auto) Lymph % (Auto) [place] % (Auto) Eos % (Auto) Baso % (Auto) Neut # (Auto) Lymph # (Auto) [place] # (Auto) Eos # (Auto) Baso # (Auto) Immature Gran % Nucleated RBC % Immature Gran # Nucleated RBCs # Immature Plt Fraction INR PT Patient/Control Mix Circ Anticoag PTT Patient Temperature ABG pH ABG pH at Pt Temp ABG pCO2 ABG pCO2 at Pt Temp ABG pO2 ABG pO2 at Pt Temp ABG HCO3 ABG Total CO2 ABG O2 Saturation ABG Base Excess ABG Sodium VBG pH VBG pCO2 VBG pO2 VBG HCO3 VBG Total CO2 VBG O2 Saturation VBG Base Excess Hemoglobin Hematocrit Potassium Glucose Ionized Calcium FiO2 Sodium Chloride Carbon Dioxide Anion Gap BUN Creatinine GFR Calculation BUN/Creatinine Ratio POC Glucose 85 Calculated Osmolality Lactic Acid Calcium Venous Ioniz Calcium Magnesium Urine Color Yellow Urine Appearance Clear Urine pH 6.0 Ur Specific [place] 1.010 Urine Protein Negative Urine Glucose (UA) Negative Urine Ketones Negative Urine Blood Negative Urine Nitrate Negative Urine Bilirubin Negative Urine Urobilinogen 4.0 H Urine Leukocytes Negative Urine RBC <1 Urine WBC <1 Ur Culture Indicated? Not indicated Blood Type Antibody Screen Crossmatch 12/10/16 12/10/16 12/10/16 07:52 09:17 09:45 WBC RBC Hgb Hct MCV MCH MCHC RDW Plt Count MPV Neut % (Auto) Lymph % (Auto) [place] % (Auto) Eos % (Auto) Baso % (Auto) Neut # (Auto) Lymph # (Auto) [place] # (Auto) Eos # (Auto) Baso # (Auto) Immature Gran % Nucleated RBC % Immature Gran # Nucleated RBCs # Immature Plt Fraction INR PT Patient/Control Mix Circ Anticoag PTT Patient Temperature 37 35 33 ABG pH 7.411 ABG pH at Pt Temp 7.411 7.492 7.525 ABG pCO2 38.8 ABG pCO2 at Pt Temp 38.8 34.7 31.6 ABG pO2 453.0 H ABG pO2 at Pt Temp 453.0 38.8 38.4 ABG HCO3 24.7 ABG Total CO2 21.7 L ABG O2 Saturation 99.7 ABG Base Excess 0.2 ABG Sodium 139 136 136 VBG pH 7.462 7.464 VBG pCO2 38.2 L 38.4 L VBG pO2 44.6 H 50.5 H VBG HCO3 27.2 27.5 VBG Total CO2 25.1 25.2 VBG O2 Saturation 81.3 86.5 VBG Base Excess 3.4 3.7 Hemoglobin 12.4 L 9.2 L D 9.4 L Hematocrit 38.0 L 28.4 L 29.1 L Potassium 3.9 4.6 4.3 Glucose 92 216 H 223 H Ionized Calcium 1.14 L FiO2 80.00 80.00 Sodium Chloride Carbon Dioxide Anion Gap BUN Creatinine GFR Calculation BUN/Creatinine Ratio POC Glucose Calculated Osmolality Lactic Acid Calcium Venous Ioniz Calcium 0.99 L 1.01 L Magnesium Urine Color Urine Appearance Urine pH Ur Specific [place] Urine Protein Urine Glucose (UA) Urine Ketones Urine Blood Urine Nitrate Urine Bilirubin Urine Urobilinogen Urine Leukocytes Urine RBC Urine WBC Ur Culture Indicated? Blood Type Antibody Screen Crossmatch 12/10/16 12/10/16 12/10/16 10:30 11:02 11:39 WBC RBC Hgb Hct MCV MCH MCHC RDW Plt Count MPV Neut % (Auto) Lymph % (Auto) [place] % (Auto) Eos % (Auto) Baso % (Auto) Neut # (Auto) Lymph # (Auto) [place] # (Auto) Eos # (Auto) Baso # (Auto) Immature Gran % Nucleated RBC % Immature Gran # Nucleated RBCs # Immature Plt Fraction INR PT Patient/Control Mix Circ Anticoag PTT Patient Temperature 37 32 34 ABG pH ABG pH at Pt Temp 7.520 7.572 7.517 ABG pCO2 ABG pCO2 at Pt Temp 33.3 26.5 30.1 ABG pO2 ABG pO2 at Pt Temp 44.0 33.5 33.4 ABG HCO3 ABG Total CO2 ABG O2 Saturation ABG Base Excess ABG Sodium 128 L 132 L 129 L VBG pH 7.520 7.496 7.472 VBG pCO2 33.3 L 33.7 L 34.9 L VBG pO2 44.0 H 47.3 H 41.2 H VBG HCO3 26.6 26.8 25.9 VBG Total CO2 27.6 24.0 23.6 VBG O2 Saturation 86.7 84.9 77.7 VBG Base Excess 3.7 2.9 2.0 Hemoglobin 9.3 L 8.9 L 8.6 L Hematocrit 27.0 L 27.6 L 26.6 L Potassium 4.9 4.5 4.5 Glucose 391 H 382 H 361 H Ionized Calcium FiO2 80.00 60.00 80.00 Sodium Chloride Carbon Dioxide Anion Gap BUN Creatinine GFR Calculation BUN/Creatinine Ratio POC Glucose Calculated Osmolality Lactic Acid Calcium Venous Ioniz Calcium 0.95 1.01 L 0.98 L Magnesium Urine Color Urine Appearance Urine pH Ur Specific [place] Urine Protein Urine Glucose (UA) Urine Ketones Urine Blood Urine Nitrate Urine Bilirubin Urine Urobilinogen Urine Leukocytes Urine RBC Urine WBC Ur Culture Indicated? Blood Type Antibody Screen Crossmatch 12/10/16 12/10/16 12/10/16 12:19 12:20 12:57 WBC RBC Hgb Hct MCV MCH MCHC RDW Plt Count 101 L D MPV Neut % (Auto) Lymph % (Auto) [place] % (Auto) Eos % (Auto) Baso % (Auto) Neut # (Auto) Lymph # (Auto) [place] # (Auto) Eos # (Auto) Baso # (Auto) Immature Gran % Nucleated RBC % Immature Gran # Nucleated RBCs # Immature Plt Fraction INR PT Patient/Control Mix Circ Anticoag PTT Patient Temperature 37 ABG pH 7.408 ABG pH at Pt Temp 7.408 ABG pCO2 37.7 ABG pCO2 at Pt Temp 37.7 ABG pO2 374.0 H ABG pO2 at Pt Temp 374.0 ABG HCO3 24.0 ABG Total CO2 21.7 L ABG O2 Saturation 99.5 ABG Base Excess -0.6 ABG Sodium 135 VBG pH 7.404 VBG pCO2 42.1 VBG pO2 25.8 VBG HCO3 25.7 VBG Total CO2 27.0 VBG O2 Saturation 56.6 VBG Base Excess 0.9 Hemoglobin 9.8 L Hematocrit 30.4 L Potassium 3.2 L Glucose 269 H Ionized Calcium 1.77 H FiO2 Sodium Chloride Carbon Dioxide Anion Gap BUN Creatinine GFR Calculation BUN/Creatinine Ratio POC Glucose Calculated Osmolality Lactic Acid Calcium Venous Ioniz Calcium Magnesium Urine Color Urine Appearance Urine pH Ur Specific [place] Urine Protein Urine Glucose (UA) Urine Ketones Urine Blood Urine Nitrate Urine Bilirubin Urine Urobilinogen Urine Leukocytes Urine RBC Urine WBC Ur Culture Indicated? Blood Type Antibody Screen Crossmatch 12/10/16 12/10/16 12/10/16 13:48 13:48 13:48 WBC 10.8 D RBC 2.76 L Hgb 9.5 L D Hct 26.8 L MCV 97.1 MCH 34 MCHC 35.4 RDW 13.8 Plt Count 134 D MPV 10.4 Neut % (Auto) 84.8 H Lymph % (Auto) 5.8 L [place] % (Auto) 7.3 Eos % (Auto) 0.6 Baso % (Auto) 0.3 Neut # (Auto) 9.2 H Lymph # (Auto) 0.6 L [place] # (Auto) 0.8 Eos # (Auto) 0.1 Baso # (Auto) 0.0 Immature Gran % 1.2 Nucleated RBC % 0.0 Immature Gran # 0.13 Nucleated RBCs # 0.00 Immature Plt Fraction 0.0 INR PT Patient/Control Mix Circ Anticoag PTT Patient Temperature ABG pH 7.413 ABG pH at Pt Temp ABG pCO2 34.8 L ABG pCO2 at Pt Temp ABG pO2 195.0 H ABG pO2 at Pt Temp ABG HCO3 22.8 ABG Total CO2 20.4 L ABG O2 Saturation 99.4 ABG Base Excess -1.9 ABG Sodium VBG pH VBG pCO2 VBG pO2 VBG HCO3 VBG Total CO2 VBG O2 Saturation VBG Base Excess Hemoglobin 9.2 L Hematocrit 28.5 L Potassium 3.4 L 3.6 Glucose 145 H 151 H Ionized Calcium FiO2 Sodium 144 Chloride 111 H Carbon Dioxide 25 Anion Gap 11.6 BUN 12 Creatinine 0.90 GFR Calculation 91 BUN/Creatinine Ratio 13.00 POC Glucose Calculated Osmolality 288.8 Lactic Acid 3.2 H Calcium 11.5 H D Venous Ioniz Calcium Magnesium Urine Color Urine Appearance Urine pH Ur Specific [place] Urine Protein Urine Glucose (UA) Urine Ketones Urine Blood Urine Nitrate Urine Bilirubin Urine Urobilinogen Urine Leukocytes Urine RBC Urine WBC Ur Culture Indicated? Blood Type Antibody Screen Crossmatch 12/10/16 12/10/16 13:48 13:48 WBC RBC Hgb Hct MCV MCH MCHC RDW Plt Count MPV Neut % (Auto) Lymph % (Auto) [place] % (Auto) Eos % (Auto) Baso % (Auto) Neut # (Auto) Lymph # (Auto) [place] # (Auto) Eos # (Auto) Baso # (Auto) Immature Gran % Nucleated RBC % Immature Gran # Nucleated RBCs # Immature Plt Fraction INR 1.3 PT Patient/Control Mix 13.5 D Circ Anticoag PTT 30.3 Patient Temperature ABG pH ABG pH at Pt Temp ABG pCO2 ABG pCO2 at Pt Temp ABG pO2 ABG pO2 at Pt Temp ABG HCO3 ABG Total CO2 ABG O2 Saturation ABG Base Excess ABG Sodium VBG pH VBG pCO2 VBG pO2 VBG HCO3 VBG Total CO2 VBG O2 Saturation VBG Base Excess Hemoglobin Hematocrit Potassium Glucose Ionized Calcium FiO2 Sodium Chloride Carbon Dioxide Anion Gap BUN Creatinine GFR Calculation BUN/Creatinine Ratio POC Glucose Calculated Osmolality Lactic Acid Calcium Venous Ioniz Calcium Magnesium 2.3 Urine Color Urine Appearance Urine pH Ur Specific [place] Urine Protein Urine Glucose (UA) Urine Ketones Urine Blood Urine Nitrate Urine Bilirubin Urine Urobilinogen Urine Leukocytes Urine RBC Urine WBC Ur Culture Indicated? Blood Type Antibody Screen Crossmatch <Marek Valadez - Last Filed: 12/10/16 18:42> Cardiology - PN: Subj Interval history: Patient personally examined and chart reviewed. Discussed patient's case with Patricia Morgan NP. Also discussed the case with Dr. Lees. The patient is progressing well post CABG. His blood pressure little low but they always run this. He is coarse atrial fibrillation with his ventricular response borderline. He has had no immediate postop issues. Patient had VAZQUEZ to LAD. We will continue to monitor this patient post operatively. He will need risk factor modification continued post procedure. Exam (Progress Note) - Constitutional Vitals: Period Temp Pulse Resp BP Sys/Aragon Pulse Ox Last 24 Hr 95.0 F-98.4 F 68-96 8-16 84-109/51-66 96-100 Result/EKG - Labs CBC & BMP: 12/10/16 13:48 12/10/16 13:48 Labs: Laboratory Results - last 24 hr 12/08/16 12/10/16 12/10/16 02:47 03:55 04:46 WBC RBC Hgb Hct MCV MCH MCHC RDW Plt Count MPV Neut % (Auto) Lymph % (Auto) [place] % (Auto) Eos % (Auto) Baso % (Auto) Neut # (Auto) Lymph # (Auto) [place] # (Auto) Eos # (Auto) Baso # (Auto) Immature Gran % Nucleated RBC % Immature Gran # Nucleated RBCs # Immature Plt Fraction INR 1.0 PT Patient/Control Mix 11.0 Circ Anticoag PTT 29.6 D Patient Temperature ABG pH 7.430 ABG pH at Pt Temp ABG pCO2 42.6 ABG pCO2 at Pt Temp ABG pO2 81.5 ABG pO2 at Pt Temp ABG HCO3 27.6 H ABG Total CO2 28.9 H ABG O2 Saturation 95.9 ABG Base Excess 3.0 H ABG Sodium VBG pH VBG pCO2 VBG pO2 VBG HCO3 VBG Total CO2 VBG O2 Saturation VBG Base Excess Hemoglobin Hematocrit Potassium Glucose Ionized Calcium FiO2 21.00 Sodium Chloride Carbon Dioxide Anion Gap BUN Creatinine GFR Calculation BUN/Creatinine Ratio POC Glucose Calculated Osmolality Lactic Acid Calcium Venous Ioniz Calcium Magnesium Urine Color Urine Appearance Urine pH Ur Specific [place] Urine Protein Urine Glucose (UA) Urine Ketones Urine Blood Urine Nitrate Urine Bilirubin Urine Urobilinogen Urine Leukocytes Urine RBC Urine WBC Ur Culture Indicated? Blood Type O POSITIVE Antibody Screen Negative Crossmatch See Detail 12/10/16 12/10/16 12/10/16 04:50 07:42 07:50 WBC RBC Hgb Hct MCV MCH MCHC RDW Plt Count 142 MPV Neut % (Auto) Lymph % (Auto) [place] % (Auto) Eos % (Auto) Baso % (Auto) Neut # (Auto) Lymph # (Auto) [place] # (Auto) Eos # (Auto) Baso # (Auto) Immature Gran % Nucleated RBC % Immature Gran # Nucleated RBCs # Immature Plt Fraction INR PT Patient/Control Mix Circ Anticoag PTT Patient Temperature ABG pH ABG pH at Pt Temp ABG pCO2 ABG pCO2 at Pt Temp ABG pO2 ABG pO2 at Pt Temp ABG HCO3 ABG Total CO2 ABG O2 Saturation ABG Base Excess ABG Sodium VBG pH VBG pCO2 VBG pO2 VBG HCO3 VBG Total CO2 VBG O2 Saturation VBG Base Excess Hemoglobin Hematocrit Potassium Glucose Ionized Calcium FiO2 Sodium Chloride Carbon Dioxide Anion Gap BUN Creatinine GFR Calculation BUN/Creatinine Ratio POC Glucose 85 Calculated Osmolality Lactic Acid Calcium Venous Ioniz Calcium Magnesium Urine Color Yellow Urine Appearance Clear Urine pH 6.0 Ur Specific [place] 1.010 Urine Protein Negative Urine Glucose (UA) Negative Urine Ketones Negative Urine Blood Negative Urine Nitrate Negative Urine Bilirubin Negative Urine Urobilinogen 4.0 H Urine Leukocytes Negative Urine RBC <1 Urine WBC <1 Ur Culture Indicated? Not indicated Blood Type Antibody Screen Crossmatch 12/10/16 12/10/16 12/10/16 07:52 09:17 09:45 WBC RBC Hgb Hct MCV MCH MCHC RDW Plt Count MPV Neut % (Auto) Lymph % (Auto) [place] % (Auto) Eos % (Auto) Baso % (Auto) Neut # (Auto) Lymph # (Auto) [place] # (Auto) Eos # (Auto) Baso # (Auto) Immature Gran % Nucleated RBC % Immature Gran # Nucleated RBCs # Immature Plt Fraction INR PT Patient/Control Mix Circ Anticoag PTT Patient Temperature 37 35 33 ABG pH 7.411 ABG pH at Pt Temp 7.411 7.492 7.525 ABG pCO2 38.8 ABG pCO2 at Pt Temp 38.8 34.7 31.6 ABG pO2 453.0 H ABG pO2 at Pt Temp 453.0 38.8 38.4 ABG HCO3 24.7 ABG Total CO2 21.7 L ABG O2 Saturation 99.7 ABG Base Excess 0.2 ABG Sodium 139 136 136 VBG pH 7.462 7.464 VBG pCO2 38.2 L 38.4 L VBG pO2 44.6 H 50.5 H VBG HCO3 27.2 27.5 VBG Total CO2 25.1 25.2 VBG O2 Saturation 81.3 86.5 VBG Base Excess 3.4 3.7 Hemoglobin 12.4 L 9.2 L D 9.4 L Hematocrit 38.0 L 28.4 L 29.1 L Potassium 3.9 4.6 4.3 Glucose 92 216 H 223 H Ionized Calcium 1.14 L FiO2 80.00 80.00 Sodium Chloride Carbon Dioxide Anion Gap BUN Creatinine GFR Calculation BUN/Creatinine Ratio POC Glucose Calculated Osmolality Lactic Acid Calcium Venous Ioniz Calcium 0.99 L 1.01 L Magnesium Urine Color Urine Appearance Urine pH Ur Specific [place] Urine Protein Urine Glucose (UA) Urine Ketones Urine Blood Urine Nitrate Urine Bilirubin Urine Urobilinogen Urine Leukocytes Urine RBC Urine WBC Ur Culture Indicated? Blood Type Antibody Screen Crossmatch 12/10/16 12/10/16 12/10/16 10:30 11:02 11:39 WBC RBC Hgb Hct MCV MCH MCHC RDW Plt Count MPV Neut % (Auto) Lymph % (Auto) [place] % (Auto) Eos % (Auto) Baso % (Auto) Neut # (Auto) Lymph # (Auto) [place] # (Auto) Eos # (Auto) Baso # (Auto) Immature Gran % Nucleated RBC % Immature Gran # Nucleated RBCs # Immature Plt Fraction INR PT Patient/Control Mix Circ Anticoag PTT Patient Temperature 37 32 34 ABG pH ABG pH at Pt Temp 7.520 7.572 7.517 ABG pCO2 ABG pCO2 at Pt Temp 33.3 26.5 30.1 ABG pO2 ABG pO2 at Pt Temp 44.0 33.5 33.4 ABG HCO3 ABG Total CO2 ABG O2 Saturation ABG Base Excess ABG Sodium 128 L 132 L 129 L VBG pH 7.520 7.496 7.472 VBG pCO2 33.3 L 33.7 L 34.9 L VBG pO2 44.0 H 47.3 H 41.2 H VBG HCO3 26.6 26.8 25.9 VBG Total CO2 27.6 24.0 23.6 VBG O2 Saturation 86.7 84.9 77.7 VBG Base Excess 3.7 2.9 2.0 Hemoglobin 9.3 L 8.9 L 8.6 L Hematocrit 27.0 L 27.6 L 26.6 L Potassium 4.9 4.5 4.5 Glucose 391 H 382 H 361 H Ionized Calcium FiO2 80.00 60.00 80.00 Sodium Chloride Carbon Dioxide Anion Gap BUN Creatinine GFR Calculation BUN/Creatinine Ratio POC Glucose Calculated Osmolality Lactic Acid Calcium Venous Ioniz Calcium 0.95 1.01 L 0.98 L Magnesium Urine Color Urine Appearance Urine pH Ur Specific [place] Urine Protein Urine Glucose (UA) Urine Ketones Urine Blood Urine Nitrate Urine Bilirubin Urine Urobilinogen Urine Leukocytes Urine RBC Urine WBC Ur Culture Indicated? Blood Type Antibody Screen Crossmatch 12/10/16 12/10/16 12/10/16 12:19 12:20 12:57 WBC RBC Hgb Hct MCV MCH MCHC RDW Plt Count 101 L D MPV Neut % (Auto) Lymph % (Auto) [place] % (Auto) Eos % (Auto) Baso % (Auto) Neut # (Auto) Lymph # (Auto) [place] # (Auto) Eos # (Auto) Baso # (Auto) Immature Gran % Nucleated RBC % Immature Gran # Nucleated RBCs # Immature Plt Fraction INR PT Patient/Control Mix Circ Anticoag PTT Patient Temperature 37 ABG pH 7.408 ABG pH at Pt Temp 7.408 ABG pCO2 37.7 ABG pCO2 at Pt Temp 37.7 ABG pO2 374.0 H ABG pO2 at Pt Temp 374.0 ABG HCO3 24.0 ABG Total CO2 21.7 L ABG O2 Saturation 99.5 ABG Base Excess -0.6 ABG Sodium 135 VBG pH 7.404 VBG pCO2 42.1 VBG pO2 25.8 VBG HCO3 25.7 VBG Total CO2 27.0 VBG O2 Saturation 56.6 VBG Base Excess 0.9 Hemoglobin 9.8 L Hematocrit 30.4 L Potassium 3.2 L Glucose 269 H Ionized Calcium 1.77 H FiO2 Sodium Chloride Carbon Dioxide Anion Gap BUN Creatinine GFR Calculation BUN/Creatinine Ratio POC Glucose Calculated Osmolality Lactic Acid Calcium Venous Ioniz Calcium Magnesium Urine Color Urine Appearance Urine pH Ur Specific [place] Urine Protein Urine Glucose (UA) Urine Ketones Urine Blood Urine Nitrate Urine Bilirubin Urine Urobilinogen Urine Leukocytes Urine RBC Urine WBC Ur Culture Indicated? Blood Type Antibody Screen Crossmatch 12/10/16 12/10/16 12/10/16 13:48 13:48 13:48 WBC 10.8 D RBC 2.76 L Hgb 9.5 L D Hct 26.8 L MCV 97.1 MCH 34 MCHC 35.4 RDW 13.8 Plt Count 134 D MPV 10.4 Neut % (Auto) 84.8 H Lymph % (Auto) 5.8 L [place] % (Auto) 7.3 Eos % (Auto) 0.6 Baso % (Auto) 0.3 Neut # (Auto) 9.2 H Lymph # (Auto) 0.6 L [place] # (Auto) 0.8 Eos # (Auto) 0.1 Baso # (Auto) 0.0 Immature Gran % 1.2 Nucleated RBC % 0.0 Immature Gran # 0.13 Nucleated RBCs # 0.00 Immature Plt Fraction 0.0 INR PT Patient/Control Mix Circ Anticoag PTT Patient Temperature ABG pH 7.413 ABG pH at Pt Temp ABG pCO2 34.8 L ABG pCO2 at Pt Temp ABG pO2 195.0 H ABG pO2 at Pt Temp ABG HCO3 22.8 ABG Total CO2 20.4 L ABG O2 Saturation 99.4 ABG Base Excess -1.9 ABG Sodium VBG pH VBG pCO2 VBG pO2 VBG HCO3 VBG Total CO2 VBG O2 Saturation VBG Base Excess Hemoglobin 9.2 L Hematocrit 28.5 L Potassium 3.4 L 3.6 Glucose 145 H 151 H Ionized Calcium FiO2 Sodium 144 Chloride 111 H Carbon Dioxide 25 Anion Gap 11.6 BUN 12 Creatinine 0.90 GFR Calculation 91 BUN/Creatinine Ratio 13.00 POC Glucose Calculated Osmolality 288.8 Lactic Acid 3.2 H Calcium 11.5 H D Venous Ioniz Calcium Magnesium Urine Color Urine Appearance Urine pH Ur Specific [place] Urine Protein Urine Glucose (UA) Urine Ketones Urine Blood Urine Nitrate Urine Bilirubin Urine Urobilinogen Urine Leukocytes Urine RBC Urine WBC Ur Culture Indicated? Blood Type Antibody Screen Crossmatch 12/10/16 12/10/16 13:48 13:48 WBC RBC Hgb Hct MCV MCH MCHC RDW Plt Count MPV Neut % (Auto) Lymph % (Auto) [place] % (Auto) Eos % (Auto) Baso % (Auto) Neut # (Auto) Lymph # (Auto) [place] # (Auto) Eos # (Auto) Baso # (Auto) Immature Gran % Nucleated RBC % Immature Gran # Nucleated RBCs # Immature Plt Fraction INR 1.3 PT Patient/Control Mix 13.5 D Circ Anticoag PTT 30.3 Patient Temperature ABG pH ABG pH at Pt Temp ABG pCO2 ABG pCO2 at Pt Temp ABG pO2 ABG pO2 at Pt Temp ABG HCO3 ABG Total CO2 ABG O2 Saturation ABG Base Excess ABG Sodium VBG pH VBG pCO2 VBG pO2 VBG HCO3 VBG Total CO2 VBG O2 Saturation VBG Base Excess Hemoglobin Hematocrit Potassium Glucose Ionized Calcium FiO2 Sodium Chloride Carbon Dioxide Anion Gap BUN Creatinine GFR Calculation BUN/Creatinine Ratio POC Glucose Calculated Osmolality Lactic Acid Calcium Venous Ioniz Calcium Magnesium 2.3 Urine Color Urine Appearance Urine pH Ur Specific [place] Urine Protein Urine Glucose (UA) Urine Ketones Urine Blood Urine Nitrate Urine Bilirubin Urine Urobilinogen Urine Leukocytes Urine RBC Urine WBC Ur Culture Indicated? Blood Type Antibody Screen Crossmatch
--- NOTE | 2016-12-10 16:22 | Operative Note ---
Date of procedure: 12/10/16 Pre-op diagnosis: Severe mitral insufficiency, left main coronary artery disease Post-op diagnosis: same Procedure: 1. [place] of right lower extremity great saphenous vein 2. Institution of cardiopulmonary bypass 3. [place] of left internal mammary artery pedicle 4. CABG with VAZQUEZ LAD 5. Mitral valve replacement with size 34 bioprosthetic valve 6. Transesophageal echocardiogram Findings: 71-year-old male with severe left main coronary artery disease as well as severe mitral insufficiency likely to be ischemic. After extensive trials to find a suitable target for the circumflex circulation bypass I was not able to find a reasonable target. His LAD target was very good size around 2 mm, a pedicled VAZQUEZ LAD graft was created. Mitral valve replacement was performed without any problems. The patient recovered well without any problems. Intraoperative SEPIDEH was done by Dr. Olvera and showed ejection fraction to be around 40% and a well seated valve with no leak. Details of the procedure: The patient was brought into the OR placed supine on the OR table and general endotracheal anesthesia was induced without any problems. Lites were inserted. Timeout was performed. Antibiotics were given. Chest was prepped and draped in. In usual sterile fashion. Midline chest incision was performed. Sternotomy was performed. Hemostasis was achieved. The internal mammary retractor was placed on the left side. Left internal mammary artery was harvested as a pedicled graft from the xiphisternum all the way up to the first rib. Hemostasis was achieved. Left chest was inserted. After that I opened the pericardium. Pericardial cradle was created. I cannulated the distal ascending aorta. I did a bicaval cannulation with size 32 straight cannulas without any problems. I then prepped the mammary and then proceeded with inserting the cardioplegia needle. I started the patient on bypass. I then inserted an LV vent through the right superior pulmonary vein. Cross-clamp was applied to the aorta and cardioplegia was given. The heart arrested successfully. Once arrested extensive multiple trials were performed to achieve a bypass to the circumflex circulation however I was not able to find any suitable target. All the branches were very small and not good candidates for bypass. All the larger branches were likely to be deep intramyocardial. At this point I decided to proceed with just VAZQUEZ LAD bypass. That was done successfully with 7-0 Prolene stitch. The size of the LAD was very good as a distal target. I then reduced the patient with cardioplegia 600 cc through the aortic root. I then proceeded with opening the left atrium through Sondergaard's groove. After arteriotomy I inserted my Patricia retractor. This exposed the mitral very well. I sized the mitral to be size 34. I preserved all the subvalvular apparatus. Horizontal mattress pledgeted sutures 2-0 Ethibond were inserted in a circular fashion all around the annulus. Care was taken to avoid the relationship with the circumflex artery as well as the conduction system. The stitches were then inserted into the valvular cuff. The valve was seated well without any problems. All knots were tied successfully without any problems. IV inserted the LV vent through the valve again. At this point I closed the left atrial atriotomy with a double stitching pledgeted 3-0 Prolene stitch. Prior to that I feel the heart and filled the atrium to the air successfully. Once that is done all de-airing were done. Cross-clamp was removed. The heart recovered well without any problems. At this point I achieved hemostasis. I slowly starting weaning the patient off bypass. With high flow Dr. Olvera came in and did a transesophageal echocardiogram and he confirmed no presence of air in the ventricle. He also confirmed well seated valve without any problems. I then proceeded with completely weaning the patient off bypass. This was done successfully and the patient tolerated that well. A full SEPIDEH after showed ejection fraction around 40%. The valve was seated well with no leak. Protamine was given. Decannulation ensued. Hemostasis was achieved. I then viewed all the surgical sites including the mammary bed. Chest tubes were inserted in the mediastinum. Ventricular and atrial pacing wires were inserted. After complete hemostasis I put the sternal wires to approximate the sternum. I then proceeded with putting PDS closure stitch on subcutaneous tissue. The skin was closed using Monocryl. All counts were correct at the end of the procedure. The patient was transferred to ICU in good condition. Anesthesia: BHARTI Surgeon / Physician: Fidel Lees Estimated blood loss: other (CPB) Tourniquet Time (Minutes): 130 Specimens: other (A 2 piece of the mitral valve leaflet) Condition: critical Disposition: ICU Results - Labs CBC & BMP: 12/10/16 13:48 12/10/16 13:48 Discharge Plan - Discharge Medications No Action Levothyroxine Tab [Synthroid Tab] 25 mcg PO DAILY@0700 Gabapentin [Neurontin] 1,600 mg PO BID Furosemide Tab [Lasix Tab] 80 mg PO DAILY Potassium Chloride [Klor-Con M20] 20 meq PO BID Citalopram Hydrobromide [Citalopram HBr] 20 mg PO BID Zolpidem Tartrate [Ambien] 10 mg PO BEDTIME Lisinopril 10 mg PO DAILY Carvedilol 12.5 mg PO BID Warfarin [Coumadin] 3 mg PO DAILY Tamsulosin HCl 0.4 mg PO BID - Follow Up or Referral - Forms/Instructions
[2016-12-10 21:29] LABS: ABG Base Excess -3.6 MMOL/L (-2.5-2.5); ABG HCO3 21.4 MMOL/L (20-26); ABG Oxygen Saturation 97.3 % (95-100); ABG PCO2 45.2 MM HG (35-48); ABG PH 7.307 (7.35-7.45); ABG TCO2 21.4 MMOL/L (23-27); Glucose Heart Surgery 156 MG/DL (74-106); Hematocrit Heart Surgery 23.9 PERCENT (42-52); Hemoglobin Heart Surgery 7.7 G/DL (14.0-18.0)
[2016-12-10] MEDS ORDERED: SODIUM BICARBONATE 50 MEQ/50 ML VIAL IV ONE (21:39)
[2016-12-10] MEDS: MORPHINE 2 MG/1 ML SYRINGE IV PRN (22:12)
[2016-12-10] MEDS: CEFUROXIME INJ 1,500 MG in SODIUM CHLORIDE 0.9% 100 ML IV SCH (22:19)
[2016-12-10] MEDS ORDERED: SODIUM BICARB INJ 50 MEQ in SODIUM CHLORIDE 0.45% 1,000 ML IV SCH (22:30)
[2016-12-11 00:46] LABS: ABG Base Excess -2.2 MMOL/L (-2.5-2.5); ABG Oxygen Saturation 97.4 % (95-100); ABG PCO2 35.4 MM HG (35-48); ABG PH 7.411 (7.35-7.45); ABG PO2 111.5 MM HG (80-95); ABG TCO2 23.1 MMOL/L (23-27); Potassium Heart/CVR 3.9 MMOL/L (3.5-5.1)
[2016-12-11 00:47] LABS: Glucose Heart Surgery 105 MG/DL (74-106); Hemoglobin Heart Surgery 9.9 G/DL (14.0-18.0)
[2016-12-11 01:02] LABS: VBG HCO3 24.8 MEQ/L (24-28); VBG Oxygen Saturation 51.1 %; VBG PH 7.349; VBG PO2 22.3 MMHG (17-40)
[2016-12-11] MEDS: SODIUM CHLORIDE 0.45% 1,000 ML IV SCH ×3 (01:30→16:29)
[2016-12-11 04:46] LABS: Basophils % 0.1 % (0.0-0.8); Hematocrit 27.2 VOL% (42.0-52.0); Hemoglobin 9.5 GM/DL (14.0-18.0); Immature Granulocytes % 0.5 %; Immature Granulocytes Absolute 0.05 #; Lymphocytes # 0.4 10*3/uL (1.4-4.0); Lymphocytes % 3.9 % (21.2-54.2); Mean Corpuscular HGB Conc 34.9 GM/DL (32-36); Mean Corpuscular Hemoglobin 32 PG (27-34); Mean Corpuscular Volume 92.8 FL (87-102); Mean Platelet Volume 10.5 FL (9.6-12.0); Monocytes # 0.8 10*3/uL (0.11-0.8); Monocytes % 8.5 % (1.7-12.7); Neutrophils # 8.6 10*3/uL (1.4-7.4); Red Blood Count 2.93 MC/CUMM (3.8-5.5); Red Cell Distribution Width 15.6 % (9.3-17.3); White Blood Count 9.9 T/CUMM (4-12)
[2016-12-11 04:47] LABS: Platelet Count 101 T/CUMM (130-400)
[2016-12-11 05:01] LABS: Calcium 8.1 MG/DL (8.5-10.1); Magnesium 1.8 MG/DL (1.8-2.4); Osmolality,Calculated 290.6 MOS/KG (273-304); Potassium 4.4 MMOL/L (3.5-5.1)
[2016-12-11 05:45] LABS: Band Neutrophils 3 % (0-10); Lymphocytes 3 % (20-55); Segmented Neutrophils 89 % (50-85); Total Cells Counted 100
[2016-12-11 05:46] LABS: Hypochromasia Slight; Microcytosis Slight; Ovalocytes Slight; Platelet Estimate Decreased
[2016-12-11 06:08] LABS: ABG Base Excess -3.8 MMOL/L (-2.5-2.5); ABG HCO3 20.9 MMOL/L (20-26); ABG Oxygen Saturation 95.4 % (95-100); ABG PCO2 36.2 MM HG (35-48); ABG PH 7.379 (7.35-7.45); ABG PO2 81.3 MM HG (80-95); Glucose Heart Surgery 111 MG/DL (74-106); Hemoglobin Heart Surgery 10.1 G/DL (14.0-18.0)
[2016-12-11] MEDS: MILRINONE 20 MG/100 ML PREMIX IV SCH ×2 (06:29→14:53)
--- NOTE | 2016-12-11 07:16 | Cardiothoracic Progress Note ---
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 The patient is progressing very well. He is awake alert and oriented. He is ready for extubation. His hemodynamics are stable. His cardiac output has been running between 3.5-5.2 L a minute. He is on minimal dose of milrinone which we will wean off today. We will start aspirin, Lasix, statin. DC IV fluids. We will keep in the intensive care unit for close observation today. Current Visit: No Exam (Progress Note) - Constitutional Vitals: Period Temp Pulse Resp BP Sys/Aragon Pulse Ox Last 24 Hr 95.0 F-100.1 F 73-96 8-20 83-117/47-67 97-100 Result/EKG - Labs CBC & BMP: 12/11/16 04:28 12/11/16 04:28 Labs: Laboratory Results - last 24 hr 12/08/16 12/10/16 12/10/16 02:47 07:42 07:50 WBC RBC Hgb Hct MCV MCH MCHC RDW Plt Count 142 MPV Neut % (Auto) Lymph % (Auto) [place] % (Auto) Eos % (Auto) Baso % (Auto) Neut # (Auto) Lymph # (Auto) [place] # (Auto) Eos # (Auto) Baso # (Auto) Total Counted Immature Gran % Nucleated RBC % Immature Gran # Segmented Neutrophils Band Neutrophils Lymphocytes Monocytes Nucleated RBCs # Platelet Estimate Immature Plt Fraction Hypochromasia Microcytosis Ovalocytes INR PT Patient/Control Mix Circ Anticoag PTT Patient Temperature ABG pH ABG pH at Pt Temp ABG pCO2 ABG pCO2 at Pt Temp ABG pO2 ABG pO2 at Pt Temp ABG HCO3 ABG Total CO2 ABG O2 Sat Calc/Hayley ABG O2 Saturation ABG Base Excess ABG Sodium VBG pH VBG pCO2 VBG pO2 VBG HCO3 VBG Total CO2 VBG O2 Saturation VBG Base Excess Hemoglobin Hematocrit Potassium Glucose Ionized Calcium FiO2 Sodium Chloride Carbon Dioxide Anion Gap BUN Creatinine GFR Calculation BUN/Creatinine Ratio POC Glucose Calculated Osmolality Lactic Acid Calcium Venous Ioniz Calcium Magnesium Urine Color Yellow Urine Appearance Clear Urine pH 6.0 Ur Specific [place] 1.010 Urine Protein Negative Urine Glucose (UA) Negative Urine Ketones Negative Urine Blood Negative Urine Nitrate Negative Urine Bilirubin Negative Urine Urobilinogen 4.0 H Urine Leukocytes Negative Urine RBC <1 Urine WBC <1 Ur Culture Indicated? Not indicated Blood Type O POSITIVE Antibody Screen Negative Crossmatch See Detail 12/10/16 12/10/16 12/10/16 07:52 09:17 09:45 WBC RBC Hgb Hct MCV MCH MCHC RDW Plt Count MPV Neut % (Auto) Lymph % (Auto) [place] % (Auto) Eos % (Auto) Baso % (Auto) Neut # (Auto) Lymph # (Auto) [place] # (Auto) Eos # (Auto) Baso # (Auto) Total Counted Immature Gran % Nucleated RBC % Immature Gran # Segmented Neutrophils Band Neutrophils Lymphocytes Monocytes Nucleated RBCs # Platelet Estimate Immature Plt Fraction Hypochromasia Microcytosis Ovalocytes INR PT Patient/Control Mix Circ Anticoag PTT Patient Temperature 37 35 33 ABG pH 7.411 ABG pH at Pt Temp 7.411 7.492 7.525 ABG pCO2 38.8 ABG pCO2 at Pt Temp 38.8 34.7 31.6 ABG pO2 453.0 H ABG pO2 at Pt Temp 453.0 38.8 38.4 ABG HCO3 24.7 ABG Total CO2 21.7 L ABG O2 Sat Calc/Hayley ABG O2 Saturation 99.7 ABG Base Excess 0.2 ABG Sodium 139 136 136 VBG pH 7.462 7.464 VBG pCO2 38.2 L 38.4 L VBG pO2 44.6 H 50.5 H VBG HCO3 27.2 27.5 VBG Total CO2 25.1 25.2 VBG O2 Saturation 81.3 86.5 VBG Base Excess 3.4 3.7 Hemoglobin 12.4 L 9.2 L D 9.4 L Hematocrit 38.0 L 28.4 L 29.1 L Potassium 3.9 4.6 4.3 Glucose 92 216 H 223 H Ionized Calcium 1.14 L FiO2 80.00 80.00 Sodium Chloride Carbon Dioxide Anion Gap BUN Creatinine GFR Calculation BUN/Creatinine Ratio POC Glucose Calculated Osmolality Lactic Acid Calcium Venous Ioniz Calcium 0.99 L 1.01 L Magnesium Urine Color Urine Appearance Urine pH Ur Specific [place] Urine Protein Urine Glucose (UA) Urine Ketones Urine Blood Urine Nitrate Urine Bilirubin Urine Urobilinogen Urine Leukocytes Urine RBC Urine WBC Ur Culture Indicated? Blood Type Antibody Screen Crossmatch 12/10/16 12/10/1612/10/17 10:30 11:02 11:39 WBC RBC Hgb Hct MCV MCH MCHC RDW Plt Count MPV Neut % (Auto) Lymph % (Auto) [place] % (Auto) Eos % (Auto) Baso % (Auto) Neut # (Auto) Lymph # (Auto) [place] # (Auto) Eos # (Auto) Baso # (Auto) Total Counted Immature Gran % Nucleated RBC % Immature Gran # Segmented Neutrophils Band Neutrophils Lymphocytes Monocytes Nucleated RBCs # Platelet Estimate Immature Plt Fraction Hypochromasia Microcytosis Ovalocytes INR PT Patient/Control Mix Circ Anticoag PTT Patient Temperature 37 32 34 ABG pH ABG pH at Pt Temp 7.520 7.572 7.517 ABG pCO2 ABG pCO2 at Pt Temp 33.3 26.5 30.1 ABG pO2 ABG pO2 at Pt Temp 44.0 33.5 33.4 ABG HCO3 ABG Total CO2 ABG O2 Sat Calc/Hayley ABG O2 Saturation ABG Base Excess ABG Sodium 128 L 132 L 129 L VBG pH 7.520 7.496 7.472 VBG pCO2 33.3 L 33.7 L 34.9 L VBG pO2 44.0 H 47.3 H 41.2 H VBG HCO3 26.6 26.8 25.9 VBG Total CO2 27.6 24.0 23.6 VBG O2 Saturation 86.7 84.9 77.7 VBG Base Excess 3.7 2.9 2.0 Hemoglobin 9.3 L 8.9 L 8.6 L Hematocrit 27.0 L 27.6 L 26.6 L Potassium 4.9 4.5 4.5 Glucose 391 H 382 H 361 H Ionized Calcium FiO2 80.00 60.00 80.00 Sodium Chloride Carbon Dioxide Anion Gap BUN Creatinine GFR Calculation BUN/Creatinine Ratio POC Glucose Calculated Osmolality Lactic Acid Calcium Venous Ioniz Calcium 0.95 1.01 L 0.98 L Magnesium Urine Color Urine Appearance Urine pH Ur Specific [place] Urine Protein Urine Glucose (UA) Urine Ketones Urine Blood Urine Nitrate Urine Bilirubin Urine Urobilinogen Urine Leukocytes Urine RBC Urine WBC Ur Culture Indicated? Blood Type Antibody Screen Crossmatch 12/10/16 12/10/16 12/10/16 12:19 12:20 12:57 WBC RBC Hgb Hct MCV MCH MCHC RDW Plt Count 101 L D MPV Neut % (Auto) Lymph % (Auto) [place] % (Auto) Eos % (Auto) Baso % (Auto) Neut # (Auto) Lymph # (Auto) [place] # (Auto) Eos # (Auto) Baso # (Auto) Total Counted Immature Gran % Nucleated RBC % Immature Gran # Segmented Neutrophils Band Neutrophils Lymphocytes Monocytes Nucleated RBCs # Platelet Estimate Immature Plt Fraction Hypochromasia Microcytosis Ovalocytes INR PT Patient/Control Mix Circ Anticoag PTT Patient Temperature 37 ABG pH 7.408 ABG pH at Pt Temp 7.408 ABG pCO2 37.7 ABG pCO2 at Pt Temp 37.7 ABG pO2 374.0 H ABG pO2 at Pt Temp 374.0 ABG HCO3 24.0 ABG Total CO2 21.7 L ABG O2 Sat Calc/Hayley ABG O2 Saturation 99.5 ABG Base Excess -0.6 ABG Sodium 135 VBG pH 7.404 VBG pCO2 42.1 VBG pO2 25.8 VBG HCO3 25.7 VBG Total CO2 27.0 VBG O2 Saturation 56.6 VBG Base Excess 0.9 Hemoglobin 9.8 L Hematocrit 30.4 L Potassium 3.2 L Glucose 269 H Ionized Calcium 1.77 H FiO2 Sodium Chloride Carbon Dioxide Anion Gap BUN Creatinine GFR Calculation BUN/Creatinine Ratio POC Glucose Calculated Osmolality Lactic Acid Calcium Venous Ioniz Calcium Magnesium Urine Color Urine Appearance Urine pH Ur Specific [place] Urine Protein Urine Glucose (UA) Urine Ketones Urine Blood Urine Nitrate Urine Bilirubin Urine Urobilinogen Urine Leukocytes Urine RBC Urine WBC Ur Culture Indicated? Blood Type Antibody Screen Crossmatch 12/10/16 12/10/16 12/10/16 13:48 13:48 13:48 WBC 10.8 D RBC 2.76 L Hgb 9.5 L D Hct 26.8 L MCV 97.1 MCH 34 MCHC 35.4 RDW 13.8 Plt Count 134 D MPV 10.4 Neut % (Auto) 84.8 H Lymph % (Auto) 5.8 L [place] % (Auto) 7.3 Eos % (Auto) 0.6 Baso % (Auto) 0.3 Neut # (Auto) 9.2 H Lymph # (Auto) 0.6 L [place] # (Auto) 0.8 Eos # (Auto) 0.1 Baso # (Auto) 0.0 Total Counted Immature Gran % 1.2 Nucleated RBC % 0.0 Immature Gran # 0.13 Segmented Neutrophils Band Neutrophils Lymphocytes Monocytes Nucleated RBCs # 0.00 Platelet Estimate Immature Plt Fraction 0.0 Hypochromasia Microcytosis Ovalocytes INR PT Patient/Control Mix Circ Anticoag PTT Patient Temperature ABG pH 7.413 ABG pH at Pt Temp ABG pCO2 34.8 L ABG pCO2 at Pt Temp ABG pO2 195.0 H ABG pO2 at Pt Temp ABG HCO3 22.8 ABG Total CO2 20.4 L ABG O2 Sat Calc/Hayley ABG O2 Saturation 99.4 ABG Base Excess -1.9 ABG Sodium VBG pH VBG pCO2 VBG pO2 VBG HCO3 VBG Total CO2 VBG O2 Saturation VBG Base Excess Hemoglobin 9.2 L Hematocrit 28.5 L Potassium 3.4 L 3.6 Glucose 145 H 151 H Ionized Calcium FiO2 Sodium 144 Chloride 111 H Carbon Dioxide 25 Anion Gap 11.6 BUN 12 Creatinine 0.90 GFR Calculation 91 BUN/Creatinine Ratio 13.00 POC Glucose Calculated Osmolality 288.8 Lactic Acid 3.2 H Calcium 11.5 H D Venous Ioniz Calcium Magnesium Urine Color Urine Appearance Urine pH Ur Specific [place] Urine Protein Urine Glucose (UA) Urine Ketones Urine Blood Urine Nitrate Urine Bilirubin Urine Urobilinogen Urine Leukocytes Urine RBC Urine WBC Ur Culture Indicated? Blood Type Antibody Screen Crossmatch 12/10/16 12/10/16 12/10/16 13:48 13:48 16:52 WBC RBC Hgb Hct MCV MCH MCHC RDW Plt Count MPV Neut % (Auto) Lymph % (Auto) [place] % (Auto) Eos % (Auto) Baso % (Auto) Neut # (Auto) Lymph # (Auto) [place] # (Auto) Eos # (Auto) Baso # (Auto) Total Counted Immature Gran % Nucleated RBC % Immature Gran # Segmented Neutrophils Band Neutrophils Lymphocytes Monocytes Nucleated RBCs # Platelet Estimate Immature Plt Fraction Hypochromasia Microcytosis Ovalocytes INR 1.3 PT Patient/Control Mix 13.5 D Circ Anticoag PTT 30.3 Patient Temperature ABG pH ABG pH at Pt Temp ABG pCO2 ABG pCO2 at Pt Temp ABG pO2 ABG pO2 at Pt Temp ABG HCO3 ABG Total CO2 ABG O2 Sat Calc/Hayley ABG O2 Saturation ABG Base Excess ABG Sodium VBG pH VBG pCO2 VBG pO2 VBG HCO3 VBG Total CO2 VBG O2 Saturation VBG Base Excess Hemoglobin Hematocrit Potassium Glucose Ionized Calcium FiO2 Sodium Chloride Carbon Dioxide Anion Gap BUN Creatinine GFR Calculation BUN/Creatinine Ratio POC Glucose 135 H Calculated Osmolality Lactic Acid Calcium Venous Ioniz Calcium Magnesium 2.3 Urine Color Urine Appearance Urine pH Ur Specific [place] Urine Protein Urine Glucose (UA) Urine Ketones Urine Blood Urine Nitrate Urine Bilirubin Urine Urobilinogen Urine Leukocytes Urine RBC Urine WBC Ur Culture Indicated? Blood Type Antibody Screen Crossmatch 12/10/16 12/10/16 12/10/16 18:49 19:20 20:24 WBC RBC Hgb Hct MCV MCH MCHC RDW Plt Count MPV Neut % (Auto) Lymph % (Auto) [place] % (Auto) Eos % (Auto) Baso % (Auto) Neut # (Auto) Lymph # (Auto) [place] # (Auto) Eos # (Auto) Baso # (Auto) Total Counted Immature Gran % Nucleated RBC % Immature Gran # Segmented Neutrophils Band Neutrophils Lymphocytes Monocytes Nucleated RBCs # Platelet Estimate Immature Plt Fraction Hypochromasia Microcytosis Ovalocytes INR PT Patient/Control Mix Circ Anticoag PTT Patient Temperature ABG pH ABG pH at Pt Temp ABG pCO2 ABG pCO2 at Pt Temp ABG pO2 ABG pO2 at Pt Temp ABG HCO3 ABG Total CO2 ABG O2 Sat Calc/Hayley ABG O2 Saturation ABG Base Excess ABG Sodium VBG pH VBG pCO2 VBG pO2 VBG HCO3 VBG Total CO2 VBG O2 Saturation VBG Base Excess Hemoglobin Hematocrit Potassium Glucose Ionized Calcium FiO2 Sodium Chloride Carbon Dioxide Anion Gap BUN Creatinine GFR Calculation BUN/Creatinine Ratio POC Glucose 196 H 187 H 210 H Calculated Osmolality Lactic Acid Calcium Venous Ioniz Calcium Magnesium Urine Color Urine Appearance Urine pH Ur Specific [place] Urine Protein Urine Glucose (UA) Urine Ketones Urine Blood Urine Nitrate Urine Bilirubin Urine Urobilinogen Urine Leukocytes Urine RBC Urine WBC Ur Culture Indicated? Blood Type Antibody Screen Crossmatch 12/10/16 12/10/16 12/10/16 21:25 22:48 23:23 WBC RBC Hgb Hct MCV MCH MCHC RDW Plt Count MPV Neut % (Auto) Lymph % (Auto) [place] % (Auto) Eos % (Auto) Baso % (Auto) Neut # (Auto) Lymph # (Auto) [place] # (Auto) Eos # (Auto) Baso # (Auto) Total Counted Immature Gran % Nucleated RBC % Immature Gran # Segmented Neutrophils Band Neutrophils Lymphocytes Monocytes Nucleated RBCs # Platelet Estimate Immature Plt Fraction Hypochromasia Microcytosis Ovalocytes INR PT Patient/Control Mix Circ Anticoag PTT Patient Temperature ABG pH 7.307 L ABG pH at Pt Temp ABG pCO2 45.2 ABG pCO2 at Pt Temp ABG pO2 102.0 H ABG pO2 at Pt Temp ABG HCO3 21.4 ABG Total CO2 21.4 L ABG O2 Sat Calc/Hayley ABG O2 Saturation 97.3 ABG Base Excess -3.6 L ABG Sodium VBG pH VBG pCO2 VBG pO2 VBG HCO3 VBG Total CO2 VBG O2 Saturation VBG Base Excess Hemoglobin 7.7 L Hematocrit 23.9 L Potassium 4.0 Glucose 156 H Ionized Calcium FiO2 Sodium Chloride Carbon Dioxide Anion Gap BUN Creatinine GFR Calculation BUN/Creatinine Ratio POC Glucose 174 H 174 H Calculated Osmolality Lactic Acid Calcium Venous Ioniz Calcium Magnesium Urine Color Urine Appearance Urine pH Ur Specific [place] Urine Protein Urine Glucose (UA) Urine Ketones Urine Blood Urine Nitrate Urine Bilirubin Urine Urobilinogen Urine Leukocytes Urine RBC Urine WBC Ur Culture Indicated? Blood Type Antibody Screen Crossmatch 12/11/16 12/11/16 12/11/16 00:40 00:40 00:56 WBC RBC Hgb Hct MCV MCH MCHC RDW Plt Count MPV Neut % (Auto) Lymph % (Auto) [place] % (Auto) Eos % (Auto) Baso % (Auto) Neut # (Auto) Lymph # (Auto) [place] # (Auto) Eos # (Auto) Baso # (Auto) Total Counted Immature Gran % Nucleated RBC % Immature Gran # Segmented Neutrophils Band Neutrophils Lymphocytes Monocytes Nucleated RBCs # Platelet Estimate Immature Plt Fraction Hypochromasia Microcytosis Ovalocytes INR PT Patient/Control Mix Circ Anticoag PTT Patient Temperature ABG pH 7.411 ABG pH at Pt Temp ABG pCO2 35.4 ABG pCO2 at Pt Temp ABG pO2 111.5 H ABG pO2 at Pt Temp ABG HCO3 22.0 ABG Total CO2 23.1 ABG O2 Sat Calc/Hayley 96.9 H ABG O2 Saturation 97.4 ABG Base Excess -2.2 ABG Sodium VBG pH 7.349 VBG pCO2 46.0 VBG pO2 22.3 VBG HCO3 24.8 VBG Total CO2 26.2 VBG O2 Saturation 51.1 VBG Base Excess -1.0 L Hemoglobin 9.9 L Hematocrit 29.0 L Potassium 3.9 Glucose 105 Ionized Calcium FiO2 Sodium Chloride Carbon Dioxide Anion Gap BUN Creatinine GFR Calculation BUN/Creatinine Ratio POC Glucose Calculated Osmolality Lactic Acid Calcium Venous Ioniz Calcium Magnesium Urine Color Urine Appearance Urine pH Ur Specific [place] Urine Protein Urine Glucose (UA) Urine Ketones Urine Blood Urine Nitrate Urine Bilirubin Urine Urobilinogen Urine Leukocytes Urine RBC Urine WBC Ur Culture Indicated? Blood Type Antibody Screen Crossmatch 12/11/16 12/11/16 12/11/16 01:18 02:59 03:54 WBC RBC Hgb Hct MCV MCH MCHC RDW Plt Count MPV Neut % (Auto) Lymph % (Auto) [place] % (Auto) Eos % (Auto) Baso % (Auto) Neut # (Auto) Lymph # (Auto) [place] # (Auto) Eos # (Auto) Baso # (Auto) Total Counted Immature Gran % Nucleated RBC % Immature Gran # Segmented Neutrophils Band Neutrophils Lymphocytes Monocytes Nucleated RBCs # Platelet Estimate Immature Plt Fraction Hypochromasia Microcytosis Ovalocytes INR PT Patient/Control Mix Circ Anticoag PTT Patient Temperature ABG pH ABG pH at Pt Temp ABG pCO2 ABG pCO2 at Pt Temp ABG pO2 ABG pO2 at Pt Temp ABG HCO3 ABG Total CO2 ABG O2 Sat Calc/Hayley ABG O2 Saturation ABG Base Excess ABG Sodium VBG pH VBG pCO2 VBG pO2 VBG HCO3 VBG Total CO2 VBG O2 Saturation VBG Base Excess Hemoglobin Hematocrit Potassium Glucose Ionized Calcium FiO2 Sodium Chloride Carbon Dioxide Anion Gap BUN Creatinine GFR Calculation BUN/Creatinine Ratio POC Glucose 125 H 77 117 H Calculated Osmolality Lactic Acid Calcium Venous Ioniz Calcium Magnesium Urine Color Urine Appearance Urine pH Ur Specific [place] Urine Protein Urine Glucose (UA) Urine Ketones Urine Blood Urine Nitrate Urine Bilirubin Urine Urobilinogen Urine Leukocytes Urine RBC Urine WBC Ur Culture Indicated? Blood Type Antibody Screen Crossmatch 12/11/16 12/11/16 12/11/16 04:17 04:28 04:28 WBC 9.9 RBC 2.93 L Hgb 9.5 L Hct 27.2 L MCV 92.8 MCH 32 MCHC 34.9 RDW 15.6 Plt Count 101 L D MPV 10.5 Neut % (Auto) 87.0 H Lymph % (Auto) 3.9 L [place] % (Auto) 8.5 Eos % (Auto) 0.0 Baso % (Auto) 0.1 Neut # (Auto) 8.6 H Lymph # (Auto) 0.4 L [place] # (Auto) 0.8 Eos # (Auto) 0.0 Baso # (Auto) 0.0 Total Counted 100 Immature Gran % 0.5 Nucleated RBC % 0.0 Immature Gran # 0.05 Segmented Neutrophils 89 H Band Neutrophils 3 Lymphocytes 3 L Monocytes 5 Nucleated RBCs # 0.00 Platelet Estimate Decreased Immature Plt Fraction 4.5 Hypochromasia Slight Microcytosis Slight Ovalocytes Slight INR PT Patient/Control Mix Circ Anticoag PTT Patient Temperature ABG pH ABG pH at Pt Temp ABG pCO2 ABG pCO2 at Pt Temp ABG pO2 ABG pO2 at Pt Temp ABG HCO3 ABG Total CO2 ABG O2 Sat Calc/Hayley ABG O2 Saturation ABG Base Excess ABG Sodium VBG pH VBG pCO2 VBG pO2 VBG HCO3 VBG Total CO2 VBG O2 Saturation VBG Base Excess Hemoglobin Hematocrit Potassium 4.4 Glucose 104 Ionized Calcium FiO2 Sodium 146 H Chloride 113 H Carbon Dioxide 24 Anion Gap 13.4 BUN 15 Creatinine 0.90 GFR Calculation 91 BUN/Creatinine Ratio 16.00 POC Glucose 126 H Calculated Osmolality 290.6 Lactic Acid Calcium 8.1 L D Venous Ioniz Calcium Magnesium 1.8 Urine Color Urine Appearance Urine pH Ur Specific [place] Urine Protein Urine Glucose (UA) Urine Ketones Urine Blood Urine Nitrate Urine Bilirubin Urine Urobilinogen Urine Leukocytes Urine RBC Urine WBC Ur Culture Indicated? Blood Type Antibody Screen Crossmatch 12/11/16 05:59 WBC RBC Hgb Hct MCV MCH MCHC RDW Plt Count MPV Neut % (Auto) Lymph % (Auto) [place] % (Auto) Eos % (Auto) Baso % (Auto) Neut # (Auto) Lymph # (Auto) [place] # (Auto) Eos # (Auto) Baso # (Auto) Total Counted Immature Gran % Nucleated RBC % Immature Gran # Segmented Neutrophils Band Neutrophils Lymphocytes Monocytes Nucleated RBCs # Platelet Estimate Immature Plt Fraction Hypochromasia Microcytosis Ovalocytes INR PT Patient/Control Mix Circ Anticoag PTT Patient Temperature ABG pH 7.379 ABG pH at Pt Temp ABG pCO2 36.2 ABG pCO2 at Pt Temp ABG pO2 81.3 ABG pO2 at Pt Temp ABG HCO3 20.9 ABG Total CO2 22.0 L ABG O2 Sat Calc/Hayley ABG O2 Saturation 95.4 ABG Base Excess -3.8 L ABG Sodium VBG pH VBG pCO2 VBG pO2 VBG HCO3 VBG Total CO2 VBG O2 Saturation VBG Base Excess Hemoglobin 10.1 L Hematocrit 30.0 L Potassium 4.0 Glucose 111 H Ionized Calcium FiO2 Sodium Chloride Carbon Dioxide Anion Gap BUN Creatinine GFR Calculation BUN/Creatinine Ratio POC Glucose Calculated Osmolality Lactic Acid Calcium Venous Ioniz Calcium Magnesium Urine Color Urine Appearance Urine pH Ur Specific [place] Urine Protein Urine Glucose (UA) Urine Ketones Urine Blood Urine Nitrate Urine Bilirubin Urine Urobilinogen Urine Leukocytes Urine RBC Urine WBC Ur Culture Indicated? Blood Type Antibody Screen Crossmatch Quality Measures - VTE Contraindication to Pharmacological VTE Prophylaxis: Active Bleeding
--- NOTE | 2016-12-11 08:03 | XRay Report ---
Exam: XR chest 1V portable Date: 12/11/2016 4:00 AM Indication: Follow-up ventilator postop cardiac surgery Comparison: 12/10/2016 Technical: AP Findings: Endotracheal tube nasogastric tube is unremarkable and right-sided [place] catheter is demonstrated in the right pulmonary artery. Mediastinal drains are present. No pneumothorax. Low volume effusions on the left. Cardiomegaly is present. Sternotomy wires are present. External cardiac leads are also present. A left-sided thoracotomy tube is present in the left lung base. Impression: 1. Stable appearance of life support tubing 2. Cardiomegaly with low volume left effusion. PROCEDURE INTERPRETED AT [facility] DEPARTMENT OF RADIOLOGY Final Report Signed by: Dr. Lars Alanis
[2016-12-11] MEDS ORDERED: FUROSEMIDE 40 MG/4 ML VIAL IV ONE (08:13)
[2016-12-11] MEDS: CHLORHEXIDINE 0.12% ORAL RINSE 60 ML BOTTLE SWISH/SPIT SCH ×2 (08:36→22:36)
[2016-12-11] MEDS: CEFUROXIME INJ 1,500 MG in SODIUM CHLORIDE 0.9% 100 ML IV SCH ×2 (09:28→22:35)
--- NOTE | 2016-12-11 11:45 | Cardiology Progress Note ---
<Gaby Gilbert E - Last Filed: 12/11/16 11:36> Assessment and Plan - Time spent with patient Time spent with patient: Greater than 30 minutes (1) CAD (coronary artery disease) Status: Chronic Assessment and plan: SEE PLAN OF CARE LISTED BELOW Current Visit: Yes Qualifiers: Coronary Disease-Associated Artery/Lesion type: [place] artery [place] vs. transplanted heart: [place] heart Associated angina: with stable angina Qualified Code(s): I25.118 - Atherosclerotic heart disease of [place] coronary artery with other forms of angina pectoris (2) Mitral regurgitation Status: Chronic Assessment and plan: SEE PLAN OF CARE LISTED BELOW Current Visit: Yes Qualifiers: Cardiac valve disease etiology: nonrheumatic Qualified Code(s): I34.0 - Nonrheumatic mitral (valve) insufficiency (3) Dyslipidemia Status: Chronic Assessment and plan: SEE PLAN OF CARE LISTED BELOW Current Visit: Yes (4) High risk medication use Status: Chronic Assessment and plan: SEE PLAN OF CARE LISTED BELOW Current Visit: Yes (5) Bilateral carotid bruits Status: Chronic Assessment and plan: SEE PLAN OF CARE LISTED BELOW Current Visit: Yes (6) Ischemic cardiomyopathy Status: Chronic Assessment and plan: SEE PLAN OF CARE LISTED BELOW Current Visit: Yes (7) Hypertension Status: Chronic Assessment and plan: SEE PLAN OF CARE LISTED BELOW Current Visit: No (8) Atrial fibrillation Status: Chronic Assessment and plan: SEE PLAN OF CARE LISTED BELOW Current Visit: No Qualifiers: Atrial fibrillation type: chronic Qualified Code(s): I48.2 - Chronic atrial fibrillation (9) History of mitral valve replacement with bioprosthetic valve Status: Acute Assessment and plan: SEE PLAN OF CARE LISTED BELOW Current Visit: Yes (10) S/P CABG x 1 Status: Acute Assessment and plan: SEE PLAN OF CARE LISTED BELOW Current Visit: Yes Cardiology - PN: Subj Interval history: 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 PINA SUMMARY: Mr. Hernandez, 71WM, has a history of hypertension, dyslipidemia, atrial fibrillation. Admitted December 04, 2016 for elective cardiac catheterization. Identified was severe CAD involving the left main, LAD, circumflex and obtuse marginal coronary artery. EF 40%. Also confirmed was severe mitral regurgitation. History of atrial fibrillation. Had been taking Coumadin prior to heart catheterization. For this reason, given the severity of the CAD, patient was kept in the hospital for several days as we protected with IV heparin while allowing INR to normalize. Patient had been taking Coumadin prior to DrBeatrice Lees was consulted for consideration of CABG and MVR. He is currently scheduled for surgery Saturday, December 10, 2016. History of hypertension, dyslipidemia, atrial fibrillation with Coumadin for stroke prevention. Patient's last dose of Coumadin was Saturday, October 29, 2016. December 10, 2016 patient underwent CABG (VAZQUEZ to LAD) and mitral valve replacement with tissue valve performed by Dr. Lees. 2016: Extubated and off pressors today. He is doing well sitting up in the bedside chair. Labs are stable as are vital signs. Chest tube output stable. Encourage incentive spirometry and deep breathing. When able, will incorporate beta-sona and Aspirin. Lipid-lowering agent this evening. Will further discuss with Dr. Valadez and await additional recommendations. Seems to be progressing nicely. IMPRESSION/PLAN: 1. CAD S/P CABG - POD 1 VAZQUEZ to LAD. Progressing nicely. Continue to monitor his labs and vital signs closely. When able will introduce an aspirin and beta- sona. 2. MITRAL REGURGITATION, SEVERE - now S/P MVR (tissue valve). Stable. 3. HYPERTENSION - restart beta-sona soon. 4. DYSLIPIDEMIA - restart Crestor 20mg orally each evening. LDL 94. 5. ATRIAL FIBRILLATION - chronic for which he had been taking Coumadin for stroke prevention. Will restart Coumadin when stable. 6. ISCHEMIC CARDIOMYOPATHY - EF 40%. Hopefully, EF will improve S/P revascularization. 7. CAROTID BRUITS - recent carotid ultrasounds at [facility] reveal no significant stenosis bilaterally 8. ANEMIA - as expected post-operatively. Continue monitoring daily labs. Exam (Progress Note) - Constitutional Vitals: Period Temp Pulse Resp BP Sys/Aragon Pulse Ox Last 24 Hr 95.0 F-100.1 F 71-96 8-20 83-117/47-67 92-100 Exam: General: [Appears well with no apparent distress.] [Pleasant and cooperative. ] [Appears comfortable.] HEENT: [PERRL, normocephalic, atraumatic. Mucous membranes moist. No jaundice noted. Conjunctiva moist and clear, sclerae anicteric] Neck: No JVD/HJR, no thyromegaly or lymphadenopathy noted. Soft bilateral carotid bruits. Cardiac: [Irregularly irregular rhythm, controlled rate. Friction rub noted. Dressing to sternum dry and intact. Chest tubes intact with minimal output Lungs: [Clear to auscultation without accessory muscle use to assist the respiratory pattern.] Using oxygen via nasal biprong. Abdomen: Soft, bowel sounds normoactive. Nontender and nondistended. No abdominal bruit or thrill noted. No masses noted. Musculoskeletal: No fluid collection. Decreased range of motion is noted. Right lower extremity vein harvest site without dehiscence or drainage Extremities: No clubbing, cyanosis noted. [ No edema noted.] Upper extremity pulses 2+. Lower extremity pulses 2+. Capillary refill less than 3 seconds. Skin: No unusual lesions or rashes. No skin breakdown appreciated. Neuro: Awake, alert and oriented 3. Moves all extremities well without hemiparesis or paralysis. No essential tremor is appreciated. Result/EKG - Labs CBC & BMP: 12/11/16 04:28 12/11/16 04:28 Lab Results: I have reviewed the past 24 hour labs Labs: Laboratory Results - last 24 hr 12/08/16 12/10/16 12/10/16 02:47 11:39 12:19 WBC RBC Hgb Hct MCV MCH MCHC RDW Plt Count 101 L D MPV Neut % (Auto) Lymph % (Auto) [place] % (Auto) Eos % (Auto) Baso % (Auto) Neut # (Auto) Lymph # (Auto) [place] # (Auto) Eos # (Auto) Baso # (Auto) Total Counted Immature Gran % Nucleated RBC % Immature Gran # Segmented Neutrophils Band Neutrophils Lymphocytes Monocytes Nucleated RBCs # Platelet Estimate Immature Plt Fraction Hypochromasia Microcytosis Ovalocytes INR PT Patient/Control Mix Circ Anticoag PTT Patient Temperature 34 ABG pH ABG pH at Pt Temp 7.517 ABG pCO2 ABG pCO2 at Pt Temp 30.1 ABG pO2 ABG pO2 at Pt Temp 33.4 ABG HCO3 ABG Total CO2 ABG O2 Sat Calc/Hayley ABG O2 Saturation ABG Base Excess ABG Sodium 129 L VBG pH 7.472 VBG pCO2 34.9 L VBG pO2 41.2 H VBG HCO3 25.9 VBG Total CO2 23.6 VBG O2 Saturation 77.7 VBG Base Excess 2.0 Hemoglobin 8.6 L Hematocrit 26.6 L Potassium 4.5 Glucose 361 H Ionized Calcium FiO2 80.00 Sodium Chloride Carbon Dioxide Anion Gap BUN Creatinine GFR Calculation BUN/Creatinine Ratio POC Glucose Calculated Osmolality Lactic Acid Calcium Venous Ioniz Calcium 0.98 L Magnesium Blood Type O POSITIVE Antibody Screen Negative Crossmatch See Detail 12/10/16 12/10/16 12/10/16 12:20 12:57 13:48 WBC RBC Hgb Hct MCV MCH MCHC RDW Plt Count MPV Neut % (Auto) Lymph % (Auto) [place] % (Auto) Eos % (Auto) Baso % (Auto) Neut # (Auto) Lymph # (Auto) [place] # (Auto) Eos # (Auto) Baso # (Auto) Total Counted Immature Gran % Nucleated RBC % Immature Gran # Segmented Neutrophils Band Neutrophils Lymphocytes Monocytes Nucleated RBCs # Platelet Estimate Immature Plt Fraction Hypochromasia Microcytosis Ovalocytes INR PT Patient/Control Mix Circ Anticoag PTT Patient Temperature 37 ABG pH 7.408 7.413 ABG pH at Pt Temp 7.408 ABG pCO2 37.7 34.8 L ABG pCO2 at Pt Temp 37.7 ABG pO2 374.0 H 195.0 H ABG pO2 at Pt Temp 374.0 ABG HCO3 24.0 22.8 ABG Total CO2 21.7 L 20.4 L ABG O2 Sat Calc/Hayley ABG O2 Saturation 99.5 99.4 ABG Base Excess -0.6 -1.9 ABG Sodium 135 VBG pH 7.404 VBG pCO2 42.1 VBG pO2 25.8 VBG HCO3 25.7 VBG Total CO2 27.0 VBG O2 Saturation 56.6 VBG Base Excess 0.9 Hemoglobin 9.8 L 9.2 L Hematocrit 30.4 L 28.5 L Potassium 3.2 L 3.4 L Glucose 269 H 145 H Ionized Calcium 1.77 H FiO2 Sodium Chloride Carbon Dioxide Anion Gap BUN Creatinine GFR Calculation BUN/Creatinine Ratio POC Glucose Calculated Osmolality Lactic Acid Calcium Venous Ioniz Calcium Magnesium Blood Type Antibody Screen Crossmatch 12/10/16 12/10/16 12/10/16 13:48 13:48 13:48 WBC 10.8 D RBC 2.76 L Hgb 9.5 L D Hct 26.8 L MCV 97.1 MCH 34 MCHC 35.4 RDW 13.8 Plt Count 134 D MPV 10.4 Neut % (Auto) 84.8 H Lymph % (Auto) 5.8 L [place] % (Auto) 7.3 Eos % (Auto) 0.6 Baso % (Auto) 0.3 Neut # (Auto) 9.2 H Lymph # (Auto) 0.6 L [place] # (Auto) 0.8 Eos # (Auto) 0.1 Baso # (Auto) 0.0 Total Counted Immature Gran % 1.2 Nucleated RBC % 0.0 Immature Gran # 0.13 Segmented Neutrophils Band Neutrophils Lymphocytes Monocytes Nucleated RBCs # 0.00 Platelet Estimate Immature Plt Fraction 0.0 Hypochromasia Microcytosis Ovalocytes INR 1.3 PT Patient/Control Mix 13.5 D Circ Anticoag PTT 30.3 Patient Temperature ABG pH ABG pH at Pt Temp ABG pCO2 ABG pCO2 at Pt Temp ABG pO2 ABG pO2 at Pt Temp ABG HCO3 ABG Total CO2 ABG O2 Sat Calc/Hayley ABG O2 Saturation ABG Base Excess ABG Sodium VBG pH VBG pCO2 VBG pO2 VBG HCO3 VBG Total CO2 VBG O2 Saturation VBG Base Excess Hemoglobin Hematocrit Potassium 3.6 Glucose 151 H Ionized Calcium FiO2 Sodium 144 Chloride 111 H Carbon Dioxide 25 Anion Gap 11.6 BUN 12 Creatinine 0.90 GFR Calculation 91 BUN/Creatinine Ratio 13.00 POC Glucose Calculated Osmolality 288.8 Lactic Acid 3.2 H Calcium 11.5 H D Venous Ioniz Calcium Magnesium Blood Type Antibody Screen Crossmatch 12/10/16 12/10/16 12/10/16 13:48 16:52 18:49 WBC RBC Hgb Hct MCV MCH MCHC RDW Plt Count MPV Neut % (Auto) Lymph % (Auto) [place] % (Auto) Eos % (Auto) Baso % (Auto) Neut # (Auto) Lymph # (Auto) [place] # (Auto) Eos # (Auto) Baso # (Auto) Total Counted Immature Gran % Nucleated RBC % Immature Gran # Segmented Neutrophils Band Neutrophils Lymphocytes Monocytes Nucleated RBCs # Platelet Estimate Immature Plt Fraction Hypochromasia Microcytosis Ovalocytes INR PT Patient/Control Mix Circ Anticoag PTT Patient Temperature ABG pH ABG pH at Pt Temp ABG pCO2 ABG pCO2 at Pt Temp ABG pO2 ABG pO2 at Pt Temp ABG HCO3 ABG Total CO2 ABG O2 Sat Calc/Hayley ABG O2 Saturation ABG Base Excess ABG Sodium VBG pH VBG pCO2 VBG pO2 VBG HCO3 VBG Total CO2 VBG O2 Saturation VBG Base Excess Hemoglobin Hematocrit Potassium Glucose Ionized Calcium FiO2 Sodium Chloride Carbon Dioxide Anion Gap BUN Creatinine GFR Calculation BUN/Creatinine Ratio POC Glucose 135 H 196 H Calculated Osmolality Lactic Acid Calcium Venous Ioniz Calcium Magnesium 2.3 Blood Type Antibody Screen Crossmatch 12/10/16 12/10/16 12/10/16 19:20 20:24 21:25 WBC RBC Hgb Hct MCV MCH MCHC RDW Plt Count MPV Neut % (Auto) Lymph % (Auto) [place] % (Auto) Eos % (Auto) Baso % (Auto) Neut # (Auto) Lymph # (Auto) [place] # (Auto) Eos # (Auto) Baso # (Auto) Total Counted Immature Gran % Nucleated RBC % Immature Gran # Segmented Neutrophils Band Neutrophils Lymphocytes Monocytes Nucleated RBCs # Platelet Estimate Immature Plt Fraction Hypochromasia Microcytosis Ovalocytes INR PT Patient/Control Mix Circ Anticoag PTT Patient Temperature ABG pH 7.307 L ABG pH at Pt Temp ABG pCO2 45.2 ABG pCO2 at Pt Temp ABG pO2 102.0 H ABG pO2 at Pt Temp ABG HCO3 21.4 ABG Total CO2 21.4 L ABG O2 Sat Calc/Hayley ABG O2 Saturation 97.3 ABG Base Excess -3.6 L ABG Sodium VBG pH VBG pCO2 VBG pO2 VBG HCO3 VBG Total CO2 VBG O2 Saturation VBG Base Excess Hemoglobin 7.7 L Hematocrit 23.9 L Potassium 4.0 Glucose 156 H Ionized Calcium FiO2 Sodium Chloride Carbon Dioxide Anion Gap BUN Creatinine GFR Calculation BUN/Creatinine Ratio POC Glucose 187 H 210 H Calculated Osmolality Lactic Acid Calcium Venous Ioniz Calcium Magnesium Blood Type Antibody Screen Crossmatch 12/10/16 12/10/16 12/11/16 22:48 23:23 00:40 WBC RBC Hgb Hct MCV MCH MCHC RDW Plt Count MPV Neut % (Auto) Lymph % (Auto) [place] % (Auto) Eos % (Auto) Baso % (Auto) Neut # (Auto) Lymph # (Auto) [place] # (Auto) Eos # (Auto) Baso # (Auto) Total Counted Immature Gran % Nucleated RBC % Immature Gran # Segmented Neutrophils Band Neutrophils Lymphocytes Monocytes Nucleated RBCs # Platelet Estimate Immature Plt Fraction Hypochromasia Microcytosis Ovalocytes INR PT Patient/Control Mix Circ Anticoag PTT Patient Temperature ABG pH 7.411 ABG pH at Pt Temp ABG pCO2 35.4 ABG pCO2 at Pt Temp ABG pO2 111.5 H ABG pO2 at Pt Temp ABG HCO3 22.0 ABG Total CO2 23.1 ABG O2 Sat Calc/Hayley ABG O2 Saturation 97.4 ABG Base Excess -2.2 ABG Sodium VBG pH VBG pCO2 VBG pO2 VBG HCO3 VBG Total CO2 VBG O2 Saturation VBG Base Excess Hemoglobin 9.9 L Hematocrit 29.0 L Potassium 3.9 Glucose 105 Ionized Calcium FiO2 Sodium Chloride Carbon Dioxide Anion Gap BUN Creatinine GFR Calculation BUN/Creatinine Ratio POC Glucose 174 H 174 H Calculated Osmolality Lactic Acid Calcium Venous Ioniz Calcium Magnesium Blood Type Antibody Screen Crossmatch 12/11/16 12/11/16 12/11/16 00:40 00:56 01:18 WBC RBC Hgb Hct MCV MCH MCHC RDW Plt Count MPV Neut % (Auto) Lymph % (Auto) [place] % (Auto) Eos % (Auto) Baso % (Auto) Neut # (Auto) Lymph # (Auto) [place] # (Auto) Eos # (Auto) Baso # (Auto) Total Counted Immature Gran % Nucleated RBC % Immature Gran # Segmented Neutrophils Band Neutrophils Lymphocytes Monocytes Nucleated RBCs # Platelet Estimate Immature Plt Fraction Hypochromasia Microcytosis Ovalocytes INR PT Patient/Control Mix Circ Anticoag PTT Patient Temperature ABG pH ABG pH at Pt Temp ABG pCO2 ABG pCO2 at Pt Temp ABG pO2 ABG pO2 at Pt Temp ABG HCO3 ABG Total CO2 ABG O2 Sat Calc/Hayley 96.9 H ABG O2 Saturation ABG Base Excess ABG Sodium VBG pH 7.349 VBG pCO2 46.0 VBG pO2 22.3 VBG HCO3 24.8 VBG Total CO2 26.2 VBG O2 Saturation 51.1 VBG Base Excess -1.0 L Hemoglobin Hematocrit Potassium Glucose Ionized Calcium FiO2 Sodium Chloride Carbon Dioxide Anion Gap BUN Creatinine GFR Calculation BUN/Creatinine Ratio POC Glucose 125 H Calculated Osmolality Lactic Acid Calcium Venous Ioniz Calcium Magnesium Blood Type Antibody Screen Crossmatch 12/11/16 12/11/16 12/11/16 02:59 03:54 04:17 WBC RBC Hgb Hct MCV MCH MCHC RDW Plt Count MPV Neut % (Auto) Lymph % (Auto) [place] % (Auto) Eos % (Auto) Baso % (Auto) Neut # (Auto) Lymph # (Auto) [place] # (Auto) Eos # (Auto) Baso # (Auto) Total Counted Immature Gran % Nucleated RBC % Immature Gran # Segmented Neutrophils Band Neutrophils Lymphocytes Monocytes Nucleated RBCs # Platelet Estimate Immature Plt Fraction Hypochromasia Microcytosis Ovalocytes INR PT Patient/Control Mix Circ Anticoag PTT Patient Temperature ABG pH ABG pH at Pt Temp ABG pCO2 ABG pCO2 at Pt Temp ABG pO2 ABG pO2 at Pt Temp ABG HCO3 ABG Total CO2 ABG O2 Sat Calc/Hayley ABG O2 Saturation ABG Base Excess ABG Sodium VBG pH VBG pCO2 VBG pO2 VBG HCO3 VBG Total CO2 VBG O2 Saturation VBG Base Excess Hemoglobin Hematocrit Potassium Glucose Ionized Calcium FiO2 Sodium Chloride Carbon Dioxide Anion Gap BUN Creatinine GFR Calculation BUN/Creatinine Ratio POC Glucose 77 117 H 126 H Calculated Osmolality Lactic Acid Calcium Venous Ioniz Calcium Magnesium Blood Type Antibody Screen Crossmatch 12/11/16 12/11/16 12/11/16 04:28 04:28 05:59 WBC 9.9 RBC 2.93 L Hgb 9.5 L Hct 27.2 L MCV 92.8 MCH 32 MCHC 34.9 RDW 15.6 Plt Count 101 L D MPV 10.5 Neut % (Auto) 87.0 H Lymph % (Auto) 3.9 L [place] % (Auto) 8.5 Eos % (Auto) 0.0 Baso % (Auto) 0.1 Neut # (Auto) 8.6 H Lymph # (Auto) 0.4 L [place] # (Auto) 0.8 Eos # (Auto) 0.0 Baso # (Auto) 0.0 Total Counted 100 Immature Gran % 0.5 Nucleated RBC % 0.0 Immature Gran # 0.05 Segmented Neutrophils 89 H Band Neutrophils 3 Lymphocytes 3 L Monocytes 5 Nucleated RBCs # 0.00 Platelet Estimate Decreased Immature Plt Fraction 4.5 Hypochromasia Slight Microcytosis Slight Ovalocytes Slight INR PT Patient/Control Mix Circ Anticoag PTT Patient Temperature ABG pH 7.379 ABG pH at Pt Temp ABG pCO2 36.2 ABG pCO2 at Pt Temp ABG pO2 81.3 ABG pO2 at Pt Temp ABG HCO3 20.9 ABG Total CO2 22.0 L ABG O2 Sat Calc/Hayley ABG O2 Saturation 95.4 ABG Base Excess -3.8 L ABG Sodium VBG pH VBG pCO2 VBG pO2 VBG HCO3 VBG Total CO2 VBG O2 Saturation VBG Base Excess Hemoglobin 10.1 L Hematocrit 30.0 L Potassium 4.4 4.0 Glucose 104 111 H Ionized Calcium FiO2 Sodium 146 H Chloride 113 H Carbon Dioxide 24 Anion Gap 13.4 BUN 15 Creatinine 0.90 GFR Calculation 91 BUN/Creatinine Ratio 16.00 POC Glucose Calculated Osmolality 290.6 Lactic Acid Calcium 8.1 L D Venous Ioniz Calcium Magnesium 1.8 Blood Type Antibody Screen Crossmatch - Diagnostic Findings Procedure: Chest x-ray: report reviewed by me - EKG EKG results: interpreted by me EKG shows: atrial fibrillation Quality Measures - VTE Contraindication to Pharmacological VTE Prophylaxis: Active Bleeding <Marek Valadez - Last Filed: 12/11/16 13:54> Cardiology - PN: Subj Interval history: Patient personally interviewed and examined and chart reviewed. Discussed case with Gaby Gilbert NP. Agree with history as well as evaluation and plan. The patient is doing well first day post bypass surgery and mitral valve replacement. Patient sitting up in her chair without any specific complaints and coughing. He has had no nausea and has been eating some. His rhythm remains atrial fibrillation which is chronic with managed ventricular response. He has had no overt problems with his cardiomyopathy which he has ejection fraction 40%. He continues to do well postoperatively. His exam is stable. His right lower extremity is wrapped post surgery in his sternal bandages around. Should be noted his blood pressures consistently run low. Exam (Progress Note) - Constitutional Vitals: Period Temp Pulse Resp BP Sys/Aragon Pulse Ox Last 24 Hr 95.0 F-100.1 F 71-96 8-20 83-117/44-69 92-100 Result/EKG - Labs CBC & BMP: 12/11/16 04:28 12/11/16 04:28 Labs: Laboratory Results - last 24 hr 12/08/16 12/10/16 12/10/16 02:47 12:57 13:48 WBC RBC Hgb Hct MCV MCH MCHC RDW Plt Count MPV Neut % (Auto) Lymph % (Auto) [place] % (Auto) Eos % (Auto) Baso % (Auto) Neut # (Auto) Lymph # (Auto) [place] # (Auto) Eos # (Auto) Baso # (Auto) Total Counted Immature Gran % Nucleated RBC % Immature Gran # Segmented Neutrophils Band Neutrophils Lymphocytes Monocytes Nucleated RBCs # Platelet Estimate Immature Plt Fraction Hypochromasia Microcytosis Ovalocytes INR PT Patient/Control Mix Circ Anticoag PTT ABG pH 7.413 ABG pCO2 34.8 L ABG pO2 195.0 H ABG HCO3 22.8 ABG Total CO2 20.4 L ABG O2 Sat Calc/Hayley ABG O2 Saturation 99.4 ABG Base Excess -1.9 VBG pH 7.404 VBG pCO2 42.1 VBG pO2 25.8 VBG HCO3 25.7 VBG Total CO2 27.0 VBG O2 Saturation 56.6 VBG Base Excess 0.9 Hemoglobin 9.2 L Hematocrit 28.5 L Potassium 3.4 L Glucose 145 H Sodium Chloride Carbon Dioxide Anion Gap BUN Creatinine GFR Calculation BUN/Creatinine Ratio POC Glucose Calculated Osmolality Lactic Acid Calcium Magnesium Blood Type O POSITIVE Antibody Screen Negative Crossmatch See Detail 12/10/16 12/10/16 12/10/16 13:48 13:48 13:48 WBC 10.8 D RBC 2.76 L Hgb 9.5 L D Hct 26.8 L MCV 97.1 MCH 34 MCHC 35.4 RDW 13.8 Plt Count 134 D MPV 10.4 Neut % (Auto) 84.8 H Lymph % (Auto) 5.8 L [place] % (Auto) 7.3 Eos % (Auto) 0.6 Baso % (Auto) 0.3 Neut # (Auto) 9.2 H Lymph # (Auto) 0.6 L [place] # (Auto) 0.8 Eos # (Auto) 0.1 Baso # (Auto) 0.0 Total Counted Immature Gran % 1.2 Nucleated RBC % 0.0 Immature Gran # 0.13 Segmented Neutrophils Band Neutrophils Lymphocytes Monocytes Nucleated RBCs # 0.00 Platelet Estimate Immature Plt Fraction 0.0 Hypochromasia Microcytosis Ovalocytes INR 1.3 PT Patient/Control Mix 13.5 D Circ Anticoag PTT 30.3 ABG pH ABG pCO2 ABG pO2 ABG HCO3 ABG Total CO2 ABG O2 Sat Calc/Hayley ABG O2 Saturation ABG Base Excess VBG pH VBG pCO2 VBG pO2 VBG HCO3 VBG Total CO2 VBG O2 Saturation VBG Base Excess Hemoglobin Hematocrit Potassium 3.6 Glucose 151 H Sodium 144 Chloride 111 H Carbon Dioxide 25 Anion Gap 11.6 BUN 12 Creatinine 0.90 GFR Calculation 91 BUN/Creatinine Ratio 13.00 POC Glucose Calculated Osmolality 288.8 Lactic Acid 3.2 H Calcium 11.5 H D Magnesium Blood Type Antibody Screen Crossmatch 12/10/16 12/10/16 12/10/16 13:48 16:52 18:49 WBC RBC Hgb Hct MCV MCH MCHC RDW Plt Count MPV Neut % (Auto) Lymph % (Auto) [place] % (Auto) Eos % (Auto) Baso % (Auto) Neut # (Auto) Lymph # (Auto) [place] # (Auto) Eos # (Auto) Baso # (Auto) Total Counted Immature Gran % Nucleated RBC % Immature Gran # Segmented Neutrophils Band Neutrophils Lymphocytes Monocytes Nucleated RBCs # Platelet Estimate Immature Plt Fraction Hypochromasia Microcytosis Ovalocytes INR PT Patient/Control Mix Circ Anticoag PTT ABG pH ABG pCO2 ABG pO2 ABG HCO3 ABG Total CO2 ABG O2 Sat Calc/Hayley ABG O2 Saturation ABG Base Excess VBG pH VBG pCO2 VBG pO2 VBG HCO3 VBG Total CO2 VBG O2 Saturation VBG Base Excess Hemoglobin Hematocrit Potassium Glucose Sodium Chloride Carbon Dioxide Anion Gap BUN Creatinine GFR Calculation BUN/Creatinine Ratio POC Glucose 135 H 196 H Calculated Osmolality Lactic Acid Calcium Magnesium 2.3 Blood Type Antibody Screen Crossmatch 12/10/16 12/10/16 12/10/16 19:20 20:24 21:25 WBC RBC Hgb Hct MCV MCH MCHC RDW Plt Count MPV Neut % (Auto) Lymph % (Auto) [place] % (Auto) Eos % (Auto) Baso % (Auto) Neut # (Auto) Lymph # (Auto) [place] # (Auto) Eos # (Auto) Baso # (Auto) Total Counted Immature Gran % Nucleated RBC % Immature Gran # Segmented Neutrophils Band Neutrophils Lymphocytes Monocytes Nucleated RBCs # Platelet Estimate Immature Plt Fraction Hypochromasia Microcytosis Ovalocytes INR PT Patient/Control Mix Circ Anticoag PTT ABG pH 7.307 L ABG pCO2 45.2 ABG pO2 102.0 H ABG HCO3 21.4 ABG Total CO2 21.4 L ABG O2 Sat Calc/Hayley ABG O2 Saturation 97.3 ABG Base Excess -3.6 L VBG pH VBG pCO2 VBG pO2 VBG HCO3 VBG Total CO2 VBG O2 Saturation VBG Base Excess Hemoglobin 7.7 L Hematocrit 23.9 L Potassium 4.0 Glucose 156 H Sodium Chloride Carbon Dioxide Anion Gap BUN Creatinine GFR Calculation BUN/Creatinine Ratio POC Glucose 187 H 210 H Calculated Osmolality Lactic Acid Calcium Magnesium Blood Type Antibody Screen Crossmatch 12/10/16 12/10/16 12/11/16 22:48 23:23 00:40 WBC RBC Hgb Hct MCV MCH MCHC RDW Plt Count MPV Neut % (Auto) Lymph % (Auto) [place] % (Auto) Eos % (Auto) Baso % (Auto) Neut # (Auto) Lymph # (Auto) [place] # (Auto) Eos # (Auto) Baso # (Auto) Total Counted Immature Gran % Nucleated RBC % Immature Gran # Segmented Neutrophils Band Neutrophils Lymphocytes Monocytes Nucleated RBCs # Platelet Estimate Immature Plt Fraction Hypochromasia Microcytosis Ovalocytes INR PT Patient/Control Mix Circ Anticoag PTT ABG pH 7.411 ABG pCO2 35.4 ABG pO2 111.5 H ABG HCO3 22.0 ABG Total CO2 23.1 ABG O2 Sat Calc/Hayley ABG O2 Saturation 97.4 ABG Base Excess -2.2 VBG pH VBG pCO2 VBG pO2 VBG HCO3 VBG Total CO2 VBG O2 Saturation VBG Base Excess Hemoglobin 9.9 L Hematocrit 29.0 L Potassium 3.9 Glucose 105 Sodium Chloride Carbon Dioxide Anion Gap BUN Creatinine GFR Calculation BUN/Creatinine Ratio POC Glucose 174 H 174 H Calculated Osmolality Lactic Acid Calcium Magnesium Blood Type Antibody Screen Crossmatch 12/11/16 12/11/16 12/11/16 00:40 00:56 01:18 WBC RBC Hgb Hct MCV MCH MCHC RDW Plt Count MPV Neut % (Auto) Lymph % (Auto) [place] % (Auto) Eos % (Auto) Baso % (Auto) Neut # (Auto) Lymph # (Auto) [place] # (Auto) Eos # (Auto) Baso # (Auto) Total Counted Immature Gran % Nucleated RBC % Immature Gran # Segmented Neutrophils Band Neutrophils Lymphocytes Monocytes Nucleated RBCs # Platelet Estimate Immature Plt Fraction Hypochromasia Microcytosis Ovalocytes INR PT Patient/Control Mix Circ Anticoag PTT ABG pH ABG pCO2 ABG pO2 ABG HCO3 ABG Total CO2 ABG O2 Sat Calc/Hayley 96.9 H ABG O2 Saturation ABG Base Excess VBG pH 7.349 VBG pCO2 46.0 VBG pO2 22.3 VBG HCO3 24.8 VBG Total CO2 26.2 VBG O2 Saturation 51.1 VBG Base Excess -1.0 L Hemoglobin Hematocrit Potassium Glucose Sodium Chloride Carbon Dioxide Anion Gap BUN Creatinine GFR Calculation BUN/Creatinine Ratio POC Glucose 125 H Calculated Osmolality Lactic Acid Calcium Magnesium Blood Type Antibody Screen Crossmatch 12/11/16 12/11/16 12/11/16 02:59 03:54 04:17 WBC RBC Hgb Hct MCV MCH MCHC RDW Plt Count MPV Neut % (Auto) Lymph % (Auto) [place] % (Auto) Eos % (Auto) Baso % (Auto) Neut # (Auto) Lymph # (Auto) [place] # (Auto) Eos # (Auto) Baso # (Auto) Total Counted Immature Gran % Nucleated RBC % Immature Gran # Segmented Neutrophils Band Neutrophils Lymphocytes Monocytes Nucleated RBCs # Platelet Estimate Immature Plt Fraction Hypochromasia Microcytosis Ovalocytes INR PT Patient/Control Mix Circ Anticoag PTT ABG pH ABG pCO2 ABG pO2 ABG HCO3 ABG Total CO2 ABG O2 Sat Calc/Hayley ABG O2 Saturation ABG Base Excess VBG pH VBG pCO2 VBG pO2 VBG HCO3 VBG Total CO2 VBG O2 Saturation VBG Base Excess Hemoglobin Hematocrit Potassium Glucose Sodium Chloride Carbon Dioxide Anion Gap BUN Creatinine GFR Calculation BUN/Creatinine Ratio POC Glucose 77 117 H 126 H Calculated Osmolality Lactic Acid Calcium Magnesium Blood Type Antibody Screen Crossmatch 12/11/16 12/11/16 12/11/16 04:28 04:28 05:59 WBC 9.9 RBC 2.93 L Hgb 9.5 L Hct 27.2 L MCV 92.8 MCH 32 MCHC 34.9 RDW 15.6 Plt Count 101 L D MPV 10.5 Neut % (Auto) 87.0 H Lymph % (Auto) 3.9 L [place] % (Auto) 8.5 Eos % (Auto) 0.0 Baso % (Auto) 0.1 Neut # (Auto) 8.6 H Lymph # (Auto) 0.4 L [place] # (Auto) 0.8 Eos # (Auto) 0.0 Baso # (Auto) 0.0 Total Counted 100 Immature Gran % 0.5 Nucleated RBC % 0.0 Immature Gran # 0.05 Segmented Neutrophils 89 H Band Neutrophils 3 Lymphocytes 3 L Monocytes 5 Nucleated RBCs # 0.00 Platelet Estimate Decreased Immature Plt Fraction 4.5 Hypochromasia Slight Microcytosis Slight Ovalocytes Slight INR PT Patient/Control Mix Circ Anticoag PTT ABG pH 7.379 ABG pCO2 36.2 ABG pO2 81.3 ABG HCO3 20.9 ABG Total CO2 22.0 L ABG O2 Sat Calc/Hayley ABG O2 Saturation 95.4 ABG Base Excess -3.8 L VBG pH VBG pCO2 VBG pO2 VBG HCO3 VBG Total CO2 VBG O2 Saturation VBG Base Excess Hemoglobin 10.1 L Hematocrit 30.0 L Potassium 4.4 4.0 Glucose 104 111 H Sodium 146 H Chloride 113 H Carbon Dioxide 24 Anion Gap 13.4 BUN 15 Creatinine 0.90 GFR Calculation 91 BUN/Creatinine Ratio 16.00 POC Glucose Calculated Osmolality 290.6 Lactic Acid Calcium 8.1 L D Magnesium 1.8 Blood Type Antibody Screen Crossmatch 12/11/16 12:20 WBC RBC Hgb Hct MCV MCH MCHC RDW Plt Count MPV Neut % (Auto) Lymph % (Auto) [place] % (Auto) Eos % (Auto) Baso % (Auto) Neut # (Auto) Lymph # (Auto) [place] # (Auto) Eos # (Auto) Baso # (Auto) Total Counted Immature Gran % Nucleated RBC % Immature Gran # Segmented Neutrophils Band Neutrophils Lymphocytes Monocytes Nucleated RBCs # Platelet Estimate Immature Plt Fraction Hypochromasia Microcytosis Ovalocytes INR PT Patient/Control Mix Circ Anticoag PTT ABG pH ABG pCO2 ABG pO2 ABG HCO3 ABG Total CO2 ABG O2 Sat Calc/Hayley ABG O2 Saturation ABG Base Excess VBG pH VBG pCO2 VBG pO2 VBG HCO3 VBG Total CO2 VBG O2 Saturation VBG Base Excess Hemoglobin Hematocrit Potassium Glucose Sodium Chloride Carbon Dioxide Anion Gap BUN Creatinine GFR Calculation BUN/Creatinine Ratio POC Glucose 180 H Calculated Osmolality Lactic Acid Calcium Magnesium Blood Type Antibody Screen Crossmatch
--- NOTE | 2016-12-11 12:24 | Pathology Report from [facility] ---
[facility] ACCESSION # : [id number] PATIENT NAME : Freedom Martin ORDERING DR : Fidel Lees MD CLINICAL HX: CAD - Mitral regurge POST-OP DX: Same SPECIMEN INFO: Mitral valve tissue GROSS DESCRIPTION: The specimen is received in formalin labeled with the patients name and consists of two fragments of pale yellow valve tissue measuring 2.0 x 1.8 cm collectively. Husker Operator sections submitted in one cassette. DIAGNOSIS FOR FREEDOM MARTIN: MITRAL VALVE TISSUE: Mucinous degenerative changes and fibrosis. COLLECTED DATE: 12/10/2016 [facility] REPORT DATE: 12/11/2016 ELECTRONICALLY SIGNED BY: Roxanne Lea M.D. 12/11/2016 - 10:41:19 MTDWilly
[2016-12-11] MEDS ORDERED: DEXTROSE 50% 25 GM/50 ML SYRINGE IV PRN (12:28)
[2016-12-11] MEDS ORDERED: GLUCAGON 1 MG VIAL IM PRN (12:28)
[2016-12-11] MEDS: INSULIN REGULAR 100 UNIT/ML SUBCUT SCH ×3 (12:40→22:39)
[2016-12-11] MEDS: ASPIRIN CHEW 81 MG TABLET PO SCH (12:41)
[2016-12-11] MEDS: MORPHINE 2 MG/1 ML SYRINGE IV PRN ×2 (13:39→17:31)
[2016-12-11] MEDS: PHENYLEPHRINE DRIP 40 MG/250 ML PREMIX IV SCH (14:53)
[2016-12-11] MEDS: KETOROLAC 15 MG/1 ML VIAL IV SCH ×2 (15:50→22:35)
--- NOTE | 2016-12-11 17:27 | Sleep Medicine Consult ---
Assessment and Plan (1) Unspecified sleep apnea Status: Acute Assessment and plan: This patient does have significant health issues it could be related to untreated sleep apnea or exacerbated by untreated sleep apnea. However he does not have an overt history of loud disruptive snoring. I think given this history, we can reassess him after a few days of recovery from heart surgery with a screening home sleep test while hospitalized. If this does not show any significant issues with sleep apnea or significant O2 desaturation, I would feel comfortable not proceeding with diagnostic polysomnography. His chronic usage of Ambien was discouraged. I explained to him that medicines like this could put him at increased risk for hip fracture related to his age. This may be masking some sleep disturbance from abnormal breathing during his sleep. Current Visit: Yes (2) Hypertension Status: Chronic Assessment and plan: The prevalence rate for obstructive sleep apnea patients with hypertension is 35 %. That rate can be as high as 80% in patients who require 4 or more medications for blood pressure control. Current Visit: No (3) Atrial fibrillation Status: Chronic Assessment and plan: Untreated sleep apnea certainly can be an aggravating factor to atrial fib. Controlling sleep apnea can help improve management of A. fib. Current Visit: No Qualifiers: Atrial fibrillation type: chronic Qualified Code(s): I48.2 - Chronic atrial fibrillation (4) CAD (coronary artery disease) Status: Chronic Assessment and plan: I reviewed the [place] data from Lancet 2004 with the patient to their understanding. This study proved significant reduction in the risk of fatal and nonfatal cardiac events in patients with severe obstructive sleep apnea compliant with CPAP, in comparison with those noncompliant with CPAP for severe sleep apnea. Current Visit: Yes Qualifiers: Coronary Disease-Associated Artery/Lesion type: [place] artery [place] vs. transplanted heart: [place] heart Associated angina: with stable angina Qualified Code(s): I25.118 - Atherosclerotic heart disease of [place] coronary artery with other forms of angina pectoris (5) Ischemic cardiomyopathy Status: Chronic Assessment and plan: Untreated sleep apnea can exacerbate CHF, whether systolic or diastolic in nature. Treating sleep apnea can benefit these patients. Current Visit: Yes History of Present Illness Chief complaint: Sleep apnea History of present illness: Mr. Perez is a 71 year old male admitted with heart disease and is status post bypass surgery. Sleep medicine was consulted for sleep evaluation. He had a elevated stop bang score of 5. He denies any history of snoring, stating that only one granddaughter is heard him snore. He states that she has sleep apnea. He usually retires between 10 and 11 PM and gets up about 6 AM. He usually feels refreshed. He does occasionally take a nap during the day. He denies awakening from sleep short of breath or having to get up to go to the bathroom. He does take a sleeping pill nightly and states that if he does not, his sleep is very disturbed. He does have significant chronic health issues of coronary disease, atrial fib, and hypertension. Home Medications Medication Instructions Recorded Confirmed Type Citalopram Hydrobromide 20 mg PO BID 03/20/15 12/04/16 History [Citalopram HBr] Furosemide Tab [Lasix Tab] 80 mg PO DAILY 03/20/15 12/04/16 History Gabapentin [Neurontin] 1,600 mg PO BID 03/20/15 12/04/16 History Levothyroxine Tab [Synthroid Tab] 25 mcg PO DAILY@0700 03/20/15 12/04/16 History Potassium Chloride [Klor-Con M20] 20 meq PO BID 03/20/15 12/04/16 History Tamsulosin HCl 0.4 mg PO BID 03/01/16 12/04/16 History Zolpidem Tartrate [Ambien] 10 mg PO BEDTIME 03/01/16 12/04/16 History Carvedilol 12.5 mg PO BID 11/11/16 12/04/16 History Lisinopril 10 mg PO DAILY 11/11/16 12/04/16 History Warfarin [Coumadin] 3 mg PO DAILY 12/04/16 12/04/16 History Allergies Allergy/AdvReac Type Severity Reaction Status Date / Time No Known Allergies Allergy Verified 12/04/16 07:41 Review of systems: Otherwise unremarkable from a sleep standpoint. Exam (Pulmonay) H&P - Constitutional Vitals: Period Temp Pulse Resp BP Sys/Aragon Pulse Ox Last 24 Hr 99.1 F-100.1 F 69-96 8-20 83-117/44-69 92-100 Exam: He is alert and responsive in no acute distress. Pupils equal round reactive to light and accommodation. Extraocular movements intact. Oropharynx with a class III Mallampati exam. Neck is supple without adenopathy or thyromegaly. No supraclavicular adenopathy is noted. Chest with symmetrical breath sounds without focal wheeze, rhonchi, or rales. Cardiac exam reveals a regular rhythm without murmur or gallop. Abdomen soft nontender without palpable hepatosplenomegaly or mass. Extremities are without clubbing, cyanosis, or edema. Neurologically, he is grossly intact. He answered all questions appropriately and moves all extremities with good strength. Medical,Surgical,& Family Hx - Medical History Cardio: History of: Cardiac Dysrhythmia (A.fib), CHF, CAD, Hypertension, Valvular Heart Disease Neurology: No history of: Seizures Endocrine: History of: Dyslipidemia, Thyroid Disorder Respiratory: History of: Pulmonary Embolism Musculoskeletal: History of: Back/Neck Problems (4 back surgeries) - Surgical History Cardiac Surgeries: Sugical HX of: Cardiac Catheterization HEENT Surgeries: Surgical HX of: Eye Surgery (Bilateral cataract) Abdominal Surgeries: Surgical HX of: Hernia Repair Orthopedic Surgeries: Surgical HX of;: Spinal Surgery (Back) - Family History Family History: Reports;: Family Cancer (brother), Family Heart Disease (father , mother), Family Hypertension (father) Denies;: Family Diabetes, Family Stroke - Social History Smoking Status: Former smoker Frequency of Alcohol Use: Occasionally Type of Drug Use: None Results - Labs CBC & BMP: 12/11/16 04:28 12/11/16 04:28 Lab Results: I have reviewed the past 24 hour labs Quality Measures - VTE Contraindication to Pharmacological VTE Prophylaxis: Active Bleeding
[2016-12-11] MEDS: ROSUVASTATIN 20 MG TABLET PO SCH (22:35)
[2016-12-11] MEDS ORDERED: diphenhydrAMINE CAP 50 MG CAPSULE PO ONE (22:47)
[2016-12-12] MEDS: INSULIN REGULAR 100 UNIT/ML SUBCUT SCH ×6 (00:17→21:25)
[2016-12-12] MEDS: MORPHINE 2 MG/1 ML SYRINGE IV PRN ×3 (02:42→17:41)
[2016-12-12] MEDS: KETOROLAC 15 MG/1 ML VIAL IV SCH ×2 (03:30→08:32)
[2016-12-12 05:31] LABS: Basophils % 0.1 % (0.0-0.8); Hematocrit 29.2 VOL% (42.0-52.0); Hemoglobin 10.1 GM/DL (14.0-18.0); Immature Granulocytes % 0.8 %; Lymphocytes # 0.7 10*3/uL (1.4-4.0); Lymphocytes % 5.3 % (21.2-54.2); Mean Corpuscular HGB Conc 34.6 GM/DL (32-36); Mean Corpuscular Hemoglobin 33 PG (27-34); Mean Corpuscular Volume 94.2 FL (87-102); Mean Platelet Volume 11.2 FL (9.6-12.0); Monocytes # 1.3 10*3/uL (0.11-0.8); Neutrophils # 10.9 10*3/uL (1.4-7.4); Neutrophils % 83.8 % (38.7-73.9); Red Cell Distribution Width 15.5 % (9.3-17.3)
[2016-12-12 05:39] LABS: Platelet Count 97 T/CUMM (130-400)
[2016-12-12 05:57] LABS: Calcium 8.1 MG/DL (8.5-10.1); Osmolality,Calculated 286.3 MOS/KG (273-304); Potassium 4.2 MMOL/L (3.5-5.1)
[2016-12-12 06:05] LABS: Band Neutrophils 1 % (0-10); Elliptocytes Few; Giant Platelets Few; Hypochromasia 1+; Lymphocytes 6 % (20-55); Microcytosis Slight; Platelet Estimate Decreased; Segmented Neutrophils 83 % (50-85); Total Cells Counted 100
--- NOTE | 2016-12-12 08:05 | XRay Report ---
History: Postop thoracotomy. Evaluate for pneumothorax Date: 12/12/2016 Study: Chest x-ray AP portable Comparison exam: 12/11/2016 The endotracheal tube, nasogastric tube, and right [place] catheter have been removed in the interval. The right IJ [place] sheath remains in stable in position over the superior vena cava. Chest drainage tubes overlie the mediastinum and left lung base. There is no pneumothorax. There is prominent cardiomegaly as before. The mediastinal contours are unchanged. There is no gross pulmonary vascular engorgement. There is stable atelectatic change in the left lower lobe. There is mild increased strandy atelectatic change in the right base. Osseous structures are similar. Impression: No evidence of a pneumothorax. Interval removal of multiple supporting tubes. Mildly increased right basilar atelectasis compared to the previous study. Otherwise unchanged PROCEDURE INTERPRETED AT [facility] DEPARTMENT OF RADIOLOGY Final Report Signed by: Dr. Brittany Eaton
[2016-12-12] MEDS: ASPIRIN CHEW 81 MG TABLET PO SCH (08:31)
[2016-12-12] MEDS: FUROSEMIDE 40 MG TABLET PO SCH (08:32)
[2016-12-12] MEDS: CHLORHEXIDINE 0.12% ORAL RINSE 60 ML BOTTLE SWISH/SPIT SCH ×2 (08:38→21:26)
--- NOTE | 2016-12-12 09:02 | Cardiology Progress Note ---
Addendum entered and electronically signed by Gaby Gilbert NP 12/12/16 09: 08: ADDENDUM: December 12, 2016 review of systems: Cardiovascular: Denies palpitations. Reports chest pain with deep breath. Pulmonary: Dry hacking cough, mild dyspnea at rest. Gastroenterology: Passing gas, no BM overnight. Denies abdominal pain Original Note: <Gaby Gilbert - Last Filed: 12/12/16 08:51> Assessment and Plan - Time spent with patient Time spent with patient: Greater than 30 minutes (1) CAD (coronary artery disease) Status: Chronic Assessment and plan: SEE PLAN OF CARE LISTED BELOW Current Visit: Yes Qualifiers: Coronary Disease-Associated Artery/Lesion type: [place] artery [place] vs. transplanted heart: [place] heart Associated angina: with stable angina Qualified Code(s): I25.118 - Atherosclerotic heart disease of [place] coronary artery with other forms of angina pectoris (2) Mitral regurgitation Status: Chronic Assessment and plan: SEE PLAN OF CARE LISTED BELOW Current Visit: Yes Qualifiers: Cardiac valve disease etiology: nonrheumatic Qualified Code(s): I34.0 - Nonrheumatic mitral (valve) insufficiency (3) Dyslipidemia Status: Chronic Assessment and plan: SEE PLAN OF CARE LISTED BELOW Current Visit: Yes (4) High risk medication use Status: Chronic Assessment and plan: SEE PLAN OF CARE LISTED BELOW Current Visit: Yes (5) Bilateral carotid bruits Status: Chronic Assessment and plan: SEE PLAN OF CARE LISTED BELOW Current Visit: Yes (6) Ischemic cardiomyopathy Status: Chronic Assessment and plan: SEE PLAN OF CARE LISTED BELOW Current Visit: Yes (7) Hypertension Status: Chronic Assessment and plan: SEE PLAN OF CARE LISTED BELOW Current Visit: No (8) Atrial fibrillation Status: Chronic Assessment and plan: SEE PLAN OF CARE LISTED BELOW Current Visit: No Qualifiers: Atrial fibrillation type: chronic Qualified Code(s): I48.2 - Chronic atrial fibrillation (9) History of mitral valve replacement with bioprosthetic valve Status: Acute Assessment and plan: SEE PLAN OF CARE LISTED BELOW Current Visit: Yes (10) S/P CABG x 1 Status: Acute Assessment and plan: SEE PLAN OF CARE LISTED BELOW Current Visit: Yes Cardiology - PN: Subj Interval history: 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 PINA SUMMARY: Mr. Hernandez, 71WM, has a history of hypertension, dyslipidemia, atrial fibrillation. Admitted December 04, 2016 for elective cardiac catheterization. Identified was severe CAD involving the left main, LAD, circumflex and obtuse marginal coronary artery. EF 40%. Also confirmed was severe mitral regurgitation. History of atrial fibrillation. Had been taking Coumadin prior to heart catheterization. For this reason, given the severity of the CAD, patient was kept in the hospital for several days as we protected with IV heparin while allowing INR to normalize. Patient had been taking Coumadin prior to Dr. Lees was consulted for consideration of CABG and MVR. He is currently scheduled for surgery Saturday, December 10, 2016. History of hypertension, dyslipidemia, atrial fibrillation with Coumadin for stroke prevention. Patient's last dose of Coumadin was Saturday, October 29, 2016. December 10, 2016 patient underwent CABG (VAZQUEZ to LAD) and mitral valve replacement with tissue valve performed by Dr. Lees. 2016: Extubated and off pressors today. He is doing well sitting up in the bedside chair. Labs are stable as are vital signs. Chest tube output stable. Encourage incentive spirometry and deep breathing. When able, will incorporate beta-sona and Aspirin. Lipid-lowering agent this evening. Will further discuss with Dr. Valadez and await additional recommendations. Seems to be progressing nicely. 2016: Patient continues to present with chronic, stable conditions to include CAD, hypertension, atrial fibrillation and dyslipidemia. Now S/P CABG and MVR (tissue valve), POD 2. His underlying hypertension is being closely followed and we have not yet restarted antihypertensives. At present, systolic blood pressure is averaging 110s, heart rate 80s-100s. He remains in atrial fibrillation. For this reason, I will start a very low-dose beta-sona this morning as we closely monitor his vital signs. He is currently taking Aspirin and when Dr. Lees believes it is safe to restart his Coumadin, will do so. We continue to follow his hemoglobin hematocrit daily as his anemia seems to have normalized overnight. Hopefully, patient will have chest tubes removed soon. He is somewhat short of breath this morning and therefore I will give an additional IV Lasix 40 mg this morning. After reviewing chest x-ray right basilar atelectasis has only mildly increased overnight. I will add incentive spirometry to prevent worsening atelectasis. I will further discuss with Dr. Valadez and await additional recommendations. IMPRESSION/PLAN: 1. CAD S/P CABG - POD 2 CABG (VAZQUEZ to LAD). Slowly improving. Adding incentive spirometry today to prevent worsening atelectasis. Encouraged deep breathing and coughing. Aspirin has been initiated. This morning, low- dose beta sona will be started. 2. MITRAL REGURGITATION, SEVERE - now S/P MVR (tissue valve). 3. HYPERTENSION - restarting beta-sona this morning. Close monitoring of blood pressure and heart rate willing today. 4. DYSLIPIDEMIA - restarted Crestor 20mg orally last evening. LDL 94. 5. ATRIAL FIBRILLATION - chronic for which he had been taking Coumadin for stroke prevention. Will restart Coumadin when Dr. Lees believes this is stable. Aspirin has been reinitiated. Could consider using Lovenox in the interim when his anemia is stable and until his INR is therapeutic 6. ISCHEMIC CARDIOMYOPATHY - EF 40%. Hopefully, EF will improve S/P revascularization. Will give additional IV Lasix this morning to prevent CHF. 7. CAROTID BRUITS - recent carotid ultrasounds at [facility] reveal no significant stenosis bilaterally 8. ANEMIA - as expected post-operatively. Continue monitoring daily labs. Exam (Progress Note) - Constitutional Vitals: Period Temp Pulse Resp BP Sys/Aragon Pulse Ox Last 24 Hr 97.7 F-99.9 F 7-136 13-24 95-146/34-82 91-96 Exam: General: [Appears well with no apparent distress.] [Pleasant and cooperative. ] [Appears comfortable.] HEENT: [PERRL, normocephalic, atraumatic. Mucous membranes moist. No jaundice noted. Conjunctiva moist and clear, sclerae anicteric] Neck: No JVD/HJR, no thyromegaly or lymphadenopathy noted. Soft bilateral carotid bruits. Cardiac: [Irregularly irregular rhythm, fast rate. Friction rub noted. Dressing to sternum dry and intact. Chest tubes intact with minimal output Lungs: [Shallow breathing noted. Continues to require oxygen via nasal prongs. Chest tubes intact. Abdomen: Soft, bowel sounds normoactive. Nontender and nondistended. No abdominal bruit or thrill noted. No masses noted. Musculoskeletal: No fluid collection. Decreased range of motion is noted. Right lower extremity vein harvest site without dehiscence or drainage Extremities: No clubbing, cyanosis noted. [ No edema noted.] Upper extremity pulses 2+. Lower extremity pulses 2+. Capillary refill less than 3 seconds. Skin: No unusual lesions or rashes. No skin breakdown appreciated. Neuro: Awake, alert and oriented 3. Moves all extremities well without hemiparesis or paralysis. No essential tremor is appreciated. Result/EKG - Labs CBC & BMP: 12/12/16 05:14 12/12/16 05:14 Lab Results: I have reviewed the past 24 hour labs Labs: Laboratory Results - last 24 hr 12/08/16 12/11/16 12/11/16 02:47 07:59 12:20 WBC RBC Hgb Hct MCV MCH MCHC RDW Plt Count MPV Neut % (Auto) Lymph % (Auto) [place] % (Auto) Eos % (Auto) Baso % (Auto) Neut # (Auto) Lymph # (Auto) [place] # (Auto) Eos # (Auto) Baso # (Auto) Total Counted Immature Gran % Nucleated RBC % Immature Gran # Segmented Neutrophils Band Neutrophils Lymphocytes Monocytes Nucleated RBCs # Platelet Estimate Giant Platelets Immature Plt Fraction Hypochromasia Microcytosis Elliptocytes Morphology Comment Sodium Potassium Chloride Carbon Dioxide Anion Gap BUN Creatinine GFR Calculation BUN/Creatinine Ratio Glucose POC Glucose 148 H 180 H Calculated Osmolality Calcium Magnesium Crossmatch See Detail 12/11/16 12/11/16 12/12/16 16:02 22:38 00:16 WBC RBC Hgb Hct MCV MCH MCHC RDW Plt Count MPV Neut % (Auto) Lymph % (Auto) [place] % (Auto) Eos % (Auto) Baso % (Auto) Neut # (Auto) Lymph # (Auto) [place] # (Auto) Eos # (Auto) Baso # (Auto) Total Counted Immature Gran % Nucleated RBC % Immature Gran # Segmented Neutrophils Band Neutrophils Lymphocytes Monocytes Nucleated RBCs # Platelet Estimate Giant Platelets Immature Plt Fraction Hypochromasia Microcytosis Elliptocytes Morphology Comment Sodium Potassium Chloride Carbon Dioxide Anion Gap BUN Creatinine GFR Calculation BUN/Creatinine Ratio Glucose POC Glucose 192 H 154 H 151 H Calculated Osmolality Calcium Magnesium Crossmatch 12/12/16 12/12/16 12/12/16 05:14 05:14 07:36 WBC 13.0 H D RBC 3.10 L Hgb 10.1 L Hct 29.2 L MCV 94.2 MCH 33 MCHC 34.6 RDW 15.5 Plt Count 97 L MPV 11.2 Neut % (Auto) 83.8 H Lymph % (Auto) 5.3 L [place] % (Auto) 10.0 Eos % (Auto) 0.0 Baso % (Auto) 0.1 Neut # (Auto) 10.9 H Lymph # (Auto) 0.7 L [place] # (Auto) 1.3 H Eos # (Auto) 0.0 Baso # (Auto) 0.0 Total Counted 100 Immature Gran % 0.8 Nucleated RBC % 0.0 Immature Gran # 0.10 Segmented Neutrophils 83 Band Neutrophils 1 Lymphocytes 6 L Monocytes 10 Nucleated RBCs # 0.00 Platelet Estimate Decreased Giant Platelets Few Immature Plt Fraction 6.7 Hypochromasia 1+ Microcytosis Slight Elliptocytes Few Morphology Comment Sodium 141 Potassium 4.2 Chloride 109 H Carbon Dioxide 26 Anion Gap 10.2 BUN 28 H Creatinine 1.10 GFR Calculation 73 BUN/Creatinine Ratio 25.00 H Glucose 93 POC Glucose 95 Calculated Osmolality 286.3 Calcium 8.1 L Magnesium 2.0 Crossmatch - Diagnostic Findings Procedure: Chest x-ray: report reviewed by me - EKG EKG results: interpreted by ri EKG shows: atrial fibrillation Quality Measures - VTE Contraindication to Pharmacological VTE Prophylaxis: Active Bleeding Specialty Discharge - Follow Up or Referrals <Marek Valadez - Last Filed: 12/12/16 18:01> Cardiology - PN: Subj Interval history: Patient personally interviewed and examined chart reviewed. I discussed this case with Gaby Gilbert NP and agree with the assessment, evaluation and plan is noted in the chart. The patient is making good progress. He has chronic atrial fibrillation and this is been stable including his ventricular response. He is progressing from his coronary bypass surgery and valve replacement. He is having no real specific complaints. His appetite is fair. He has had no heart failure symptomatology and has an ischemic cardiomyopathy ejection fraction 40%. General he is making good progress and will continue his postoperative care. Exam (Progress Note) - Constitutional Vitals: Period Temp Pulse Resp BP Sys/Aragon Pulse Ox Last 24 Hr 97.7 F-101.5 F 7-136 18-27 95-146/34-82 9-97 Result/EKG - Labs CBC & BMP: 12/12/16 05:14 12/12/16 05:14 Labs: Laboratory Results - last 24 hr 12/08/16 12/11/16 12/11/16 02:47 07:59 22:38 WBC RBC Hgb Hct MCV MCH MCHC RDW Plt Count MPV Neut % (Auto) Lymph % (Auto) [place] % (Auto) Eos % (Auto) Baso % (Auto) Neut # (Auto) Lymph # (Auto) [place] # (Auto) Eos # (Auto) Baso # (Auto) Total Counted Immature Gran % Nucleated RBC % Immature Gran # Segmented Neutrophils Band Neutrophils Lymphocytes Monocytes Nucleated RBCs # Platelet Estimate Giant Platelets Immature Plt Fraction Hypochromasia Microcytosis Elliptocytes Morphology Comment Sodium Potassium Chloride Carbon Dioxide Anion Gap BUN Creatinine GFR Calculation BUN/Creatinine Ratio Glucose POC Glucose 148 H 154 H Calculated Osmolality Calcium Magnesium Crossmatch See Detail 12/12/16 12/12/16 12/12/16 00:16 05:14 05:14 WBC 13.0 H D RBC 3.10 L Hgb 10.1 L Hct 29.2 L MCV 94.2 MCH 33 MCHC 34.6 RDW 15.5 Plt Count 97 L MPV 11.2 Neut % (Auto) 83.8 H Lymph % (Auto) 5.3 L [place] % (Auto) 10.0 Eos % (Auto) 0.0 Baso % (Auto) 0.1 Neut # (Auto) 10.9 H Lymph # (Auto) 0.7 L [place] # (Auto) 1.3 H Eos # (Auto) 0.0 Baso # (Auto) 0.0 Total Counted 100 Immature Gran % 0.8 Nucleated RBC % 0.0 Immature Gran # 0.10 Segmented Neutrophils 83 Band Neutrophils 1 Lymphocytes 6 L Monocytes 10 Nucleated RBCs # 0.00 Platelet Estimate Decreased Giant Platelets Few Immature Plt Fraction 6.7 Hypochromasia 1+ Microcytosis Slight Elliptocytes Few Morphology Comment Sodium 141 Potassium 4.2 Chloride 109 H Carbon Dioxide 26 Anion Gap 10.2 BUN 28 H Creatinine 1.10 GFR Calculation 73 BUN/Creatinine Ratio 25.00 H Glucose 93 POC Glucose 151 H Calculated Osmolality 286.3 Calcium 8.1 L Magnesium 2.0 Crossmatch 12/12/16 12/12/16 12/12/16 07:36 11:24 15:52 WBC RBC Hgb Hct MCV MCH MCHC RDW Plt Count MPV Neut % (Auto) Lymph % (Auto) [place] % (Auto) Eos % (Auto) Baso % (Auto) Neut # (Auto) Lymph # (Auto) [place] # (Auto) Eos # (Auto) Baso # (Auto) Total Counted Immature Gran % Nucleated RBC % Immature Gran # Segmented Neutrophils Band Neutrophils Lymphocytes Monocytes Nucleated RBCs # Platelet Estimate Giant Platelets Immature Plt Fraction Hypochromasia Microcytosis Elliptocytes Morphology Comment Sodium Potassium Chloride Carbon Dioxide Anion Gap BUN Creatinine GFR Calculation BUN/Creatinine Ratio Glucose POC Glucose 95 108 H 89 Calculated Osmolality Calcium Magnesium Crossmatch
[2016-12-12] MEDS ORDERED: FUROSEMIDE 20 MG/2 ML VIAL IV ONE (09:03)
[2016-12-12] MEDS: METOPROLOL TARTRATE 25 MG TABLET PO SCH ×2 (10:13→21:26)
[2016-12-12] MEDS: ALBUTEROL/IPRATROPIUM 3 ML NEB RESP TX SCH ×4 (11:04→23:56)
--- NOTE | 2016-12-12 11:21 | XRay Report ---
Portable chest Date: 12/12/2016 Clinical history: Chest tube removal Comparison: 12/12/2016 Technique: Portable AP sitting chest Findings: Status post median sternotomy with persistent cardiomegaly. Interval removal of the mediastinal chest tubes. Left skinfolds limits exam but no obvious pneumothorax is identified. Reduced parenchymal findings with smaller pleural effusions. Stable mediastinum and osseous structures. Impression: Removal of the mediastinal chest tubes in patient with prior median sternotomy. Skinfolds limit evaluation of the left chest with no significant pneumothorax is identified. However because of this finding follow-up chest x-ray is recommended. Decreased atelectasis/edema with smaller pleural effusions. PROCEDURE INTERPRETED AT [facility] DEPARTMENT OF RADIOLOGY Final Report Signed by: Dr. Su Oconnor
[2016-12-12] MEDS ORDERED: ACETYLCYSTEINE 20% 800 MG/4 ML VIAL RESP TX ONE (12:41)
[2016-12-12] MEDS: ACETAMINOPHEN 325 MG TABLET PO PRN (15:38)
--- NOTE | 2016-12-12 16:03 | Cardiothoracic Progress Note ---
Assessment and Plan (1) Chest pain Status: Acute Assessment and plan: Postoperative day 2 status post mitral valve replacement with size 34 bioprosthetic, CABG with VAZQUEZ LAD. The patient is progressing very well. He is awake alert and oriented. He has been on nasal cannula. He has no complaints of pain. He has been out of bed to chair. Transfer to telemetry today. I removed all the chest tubes. I removed the atrial pacing wires. I agree with adding low-dose beta-sona for rate control because of his chronic A. fib.. Current Visit: No Exam (Progress Note) - Constitutional Vitals: Period Temp Pulse Resp BP Sys/Aragon Pulse Ox Last 24 Hr 97.7 F-101.5 F 7-136 15-27 95-146/34-82 9-97 Result/EKG - Labs CBC & BMP: 12/12/16 05:14 12/12/16 05:14 Labs: Laboratory Results - last 24 hr 12/08/16 12/11/16 12/11/16 02:47 07:59 16:02 WBC RBC Hgb Hct MCV MCH MCHC RDW Plt Count MPV Neut % (Auto) Lymph % (Auto) [place] % (Auto) Eos % (Auto) Baso % (Auto) Neut # (Auto) Lymph # (Auto) [place] # (Auto) Eos # (Auto) Baso # (Auto) Total Counted Immature Gran % Nucleated RBC % Immature Gran # Segmented Neutrophils Band Neutrophils Lymphocytes Monocytes Nucleated RBCs # Platelet Estimate Giant Platelets Immature Plt Fraction Hypochromasia Microcytosis Elliptocytes Morphology Comment Sodium Potassium Chloride Carbon Dioxide Anion Gap BUN Creatinine GFR Calculation BUN/Creatinine Ratio Glucose POC Glucose 148 H 192 H Calculated Osmolality Calcium Magnesium Crossmatch See Detail 12/11/16 12/12/16 12/12/16 22:38 00:16 05:14 WBC 13.0 H D RBC 3.10 L Hgb 10.1 L Hct 29.2 L MCV 94.2 MCH 33 MCHC 34.6 RDW 15.5 Plt Count 97 L MPV 11.2 Neut % (Auto) 83.8 H Lymph % (Auto) 5.3 L [place] % (Auto) 10.0 Eos % (Auto) 0.0 Baso % (Auto) 0.1 Neut # (Auto) 10.9 H Lymph # (Auto) 0.7 L [place] # (Auto) 1.3 H Eos # (Auto) 0.0 Baso # (Auto) 0.0 Total Counted 100 Immature Gran % 0.8 Nucleated RBC % 0.0 Immature Gran # 0.10 Segmented Neutrophils 83 Band Neutrophils 1 Lymphocytes 6 L Monocytes 10 Nucleated RBCs # 0.00 Platelet Estimate Decreased Giant Platelets Few Immature Plt Fraction 6.7 Hypochromasia 1+ Microcytosis Slight Elliptocytes Few Morphology Comment Sodium Potassium Chloride Carbon Dioxide Anion Gap BUN Creatinine GFR Calculation BUN/Creatinine Ratio Glucose POC Glucose 154 H 151 H Calculated Osmolality Calcium Magnesium Crossmatch 12/12/16 12/12/16 12/12/16 05:14 07:36 11:24 WBC RBC Hgb Hct MCV MCH MCHC RDW Plt Count MPV Neut % (Auto) Lymph % (Auto) [place] % (Auto) Eos % (Auto) Baso % (Auto) Neut # (Auto) Lymph # (Auto) [place] # (Auto) Eos # (Auto) Baso # (Auto) Total Counted Immature Gran % Nucleated RBC % Immature Gran # Segmented Neutrophils Band Neutrophils Lymphocytes Monocytes Nucleated RBCs # Platelet Estimate Giant Platelets Immature Plt Fraction Hypochromasia Microcytosis Elliptocytes Morphology Comment Sodium 141 Potassium 4.2 Chloride 109 H Carbon Dioxide 26 Anion Gap 10.2 BUN 28 H Creatinine 1.10 GFR Calculation 73 BUN/Creatinine Ratio 25.00 H Glucose 93 POC Glucose 95 108 H Calculated Osmolality 286.3 Calcium 8.1 L Magnesium 2.0 Crossmatch Quality Measures - VTE Contraindication to Pharmacological VTE Prophylaxis: Active Bleeding Specialty Discharge - Follow Up or Referrals
--- NOTE | 2016-12-12 16:47 | XRay Report ---
Exam: XR chest 1V Date: 12/12/2016 4:01 PM Comparison: 12/12/2016 Indication: Possible left pneumothorax Technique:[Portable AP sitting chest] Findings: Status post median sternotomy with persistent cardiomegaly. No evidence of pneumothorax. Progressive diffuse parenchymal findings at the lung bases with larger small pleural effusions. Stable mediastinum and osseous structures. Impression: No pneumothorax. Progressive pulmonary edema/atelectasis with small pleural effusions and stable cardiomegaly in patient with recent median sternotomy. PROCEDURE INTERPRETED AT [facility] DEPARTMENT OF RADIOLOGY Final Report Signed by: Dr. Su Oconnor
[2016-12-12] MEDS: ROSUVASTATIN 20 MG TABLET PO SCH (21:25)
[2016-12-12] MEDS: TAMSULOSIN 0.4 MG CAPSULE PO SCH (21:26)
[2016-12-13] MEDS: INSULIN REGULAR 100 UNIT/ML SUBCUT SCH ×6 (00:17→22:45)
[2016-12-13] MEDS: ALBUTEROL/IPRATROPIUM 3 ML NEB RESP TX SCH ×5 (03:14→19:15)
[2016-12-13] MEDS: MORPHINE 2 MG/1 ML SYRINGE IV PRN ×2 (03:46→18:10)
[2016-12-13 06:01] LABS: Basophils % 0.1 % (0.0-0.8); Eosinophils % 0.1 % (0.00-10.9); Hemoglobin 10.1 GM/DL (14.0-18.0); Immature Granulocytes % 0.6 %; Immature Granulocytes Absolute 0.07 #; Lymphocytes # 0.5 10*3/uL (1.4-4.0); Lymphocytes % 4.9 % (21.2-54.2); Mean Corpuscular HGB Conc 34.8 GM/DL (32-36); Mean Corpuscular Hemoglobin 33 PG (27-34); Mean Corpuscular Volume 95.4 FL (87-102); Mean Platelet Volume 10.8 FL (9.6-12.0); Monocytes % 9.5 % (1.7-12.7); Neutrophils # 9.2 10*3/uL (1.4-7.4); Neutrophils % 84.8 % (38.7-73.9); Red Blood Count 3.04 MC/CUMM (3.8-5.5); Red Cell Distribution Width 14.9 % (9.3-17.3); White Blood Count 10.8 T/CUMM (4-12)
[2016-12-13 06:10] LABS: Platelet Count 88 T/CUMM (130-400)
[2016-12-13 06:25] LABS: Hypochromasia 1+; Lymphocytes 6 % (20-55); Platelet Estimate Decreased; Segmented Neutrophils 90 % (50-85); Total Cells Counted 100
[2016-12-13 06:26] LABS: Giant Platelets Few; Microcytosis Slight
[2016-12-13 06:32] LABS: Calcium 7.9 MG/DL (8.5-10.1); Magnesium 2.3 MG/DL (1.8-2.4); Osmolality,Calculated 287.1 MOS/KG (273-304); Potassium 3.9 MMOL/L (3.5-5.1)
--- NOTE | 2016-12-13 07:53 | XRay Report ---
Portable chest Date: 12/13/2016 Clinical history: Postop, evaluate for pneumothorax Comparison: 12/12/2016 Technique: Portable AP sitting chest Findings: Stable cardiomegaly in patient with median sternotomy. No evidence of pneumothorax. Persistent diffuse parenchymal findings with small pleural effusions. Stable mediastinum and osseous structures. Impression: No evidence for pneumothorax. Stable cardiomegaly with recent median sternotomy. Residual atelectasis/edema in the lungs with small pleural effusions. PROCEDURE INTERPRETED AT [facility] DEPARTMENT OF RADIOLOGY Final Report Signed by: Dr. Su Oconnor
[2016-12-13] MEDS: ASPIRIN CHEW 81 MG TABLET PO SCH (08:35)
[2016-12-13] MEDS: METOPROLOL TARTRATE 25 MG TABLET PO SCH ×2 (08:35→22:46)
[2016-12-13] MEDS: FUROSEMIDE 40 MG TABLET PO SCH (08:36)
[2016-12-13] MEDS: CHLORHEXIDINE 0.12% ORAL RINSE 60 ML BOTTLE SWISH/SPIT SCH ×2 (08:41→22:46)
--- NOTE | 2016-12-13 12:27 | Cardiology Progress Note ---
<Gaby Gilbetr E - Last Filed: 12/13/16 12:17> Assessment and Plan - Time spent with patient Time spent with patient: Greater than 30 minutes (1) CAD (coronary artery disease) Status: Chronic Assessment and plan: SEE PLAN OF CARE LISTED BELOW Current Visit: Yes Qualifiers: Coronary Disease-Associated Artery/Lesion type: [place] artery [place] vs. transplanted heart: [place] heart Associated angina: with stable angina Qualified Code(s): I25.118 - Atherosclerotic heart disease of [place] coronary artery with other forms of angina pectoris (2) Mitral regurgitation Status: Chronic Assessment and plan: SEE PLAN OF CARE LISTED BELOW Current Visit: Yes Qualifiers: Cardiac valve disease etiology: nonrheumatic Qualified Code(s): I34.0 - Nonrheumatic mitral (valve) insufficiency (3) Dyslipidemia Status: Chronic Assessment and plan: SEE PLAN OF CARE LISTED BELOW Current Visit: Yes (4) High risk medication use Status: Chronic Assessment and plan: SEE PLAN OF CARE LISTED BELOW Current Visit: Yes (5) Bilateral carotid bruits Status: Chronic Assessment and plan: SEE PLAN OF CARE LISTED BELOW Current Visit: Yes (6) Ischemic cardiomyopathy Status: Chronic Assessment and plan: SEE PLAN OF CARE LISTED BELOW Current Visit: Yes (7) Hypertension Status: Chronic Assessment and plan: SEE PLAN OF CARE LISTED BELOW Current Visit: No (8) Atrial fibrillation Status: Chronic Assessment and plan: SEE PLAN OF CARE LISTED BELOW Current Visit: No Qualifiers: Atrial fibrillation type: chronic Qualified Code(s): I48.2 - Chronic atrial fibrillation (9) History of mitral valve replacement with bioprosthetic valve Status: Acute Assessment and plan: SEE PLAN OF CARE LISTED BELOW Current Visit: Yes (10) S/P CABG x 1 Status: Acute Assessment and plan: SEE PLAN OF CARE LISTED BELOW Current Visit: Yes (11) Thrombocytopenia Status: Acute Assessment and plan: SEE PLAN OF CARE LISTED BELOW Current Visit: Yes Cardiology - PN: Subj Interval history: [facility]: DR. PINA SUMMARY: Mr. Hernandez, 71WM, has a history of hypertension, dyslipidemia, atrial fibrillation. Admitted December 04, 2016 for elective cardiac catheterization. Identified was severe CAD involving the left main, LAD, circumflex and obtuse marginal coronary artery. EF 40%. Also confirmed was severe mitral regurgitation. History of atrial fibrillation. Had been taking Coumadin prior to heart catheterization. For this reason, given the severity of the CAD, patient was kept in the hospital for several days as we protected with IV heparin while allowing INR to normalize. Patient had been taking Coumadin prior to Dr. Lees was consulted for consideration of CABG and MVR. He is currently scheduled for surgery Saturday, December 10, 2016. History of hypertension, dyslipidemia, atrial fibrillation with Coumadin for stroke prevention. Patient's last dose of Coumadin was Saturday, October 29, 2016. December 10, 2016 patient underwent CABG (VAZQUEZ to LAD) and mitral valve replacement with tissue valve performed by Dr. Lees. 2016: Extubated and off pressors today. He is doing well sitting up in the bedside chair. Labs are stable as are vital signs. Chest tube output stable. Encourage incentive spirometry and deep breathing. When able, will incorporate beta-sona and Aspirin. Lipid-lowering agent this evening. Will further discuss with Dr. Valadez and await additional recommendations. Seems to be progressing nicely. 2016: Patient continues to present with chronic, stable conditions to include CAD, hypertension, atrial fibrillation and dyslipidemia. Now S/P CABG and MVR (tissue valve), POD 2. His underlying hypertension is being closely followed and we have not yet restarted antihypertensives. At present, systolic blood pressure is averaging 110s, heart rate 80s-100s. He remains in atrial fibrillation. For this reason, I will start a very low-dose beta-sona this morning as we closely monitor his vital signs. He is currently taking Aspirin and when Dr. Lees believes it is safe to restart his Coumadin, will do so. We continue to follow his hemoglobin hematocrit daily as his anemia seems to have normalized overnight. Hopefully, patient will have chest tubes removed soon. He is somewhat short of breath this morning and therefore I will give an additional IV Lasix 40 mg this morning. After reviewing chest x-ray right basilar atelectasis has only mildly increased overnight. I will add incentive spirometry to prevent worsening atelectasis. I will further discuss with Dr. Valadez and await additional recommendations. 2016: Patient is continued to be followed for chronic stable conditions to include CAD, hypertension, mitral regurgitation, atrial fibrillation and ischemic cardiomyopathy. Currently postop day 3 CABG (VAZQUEZ to LAD), MVR (tissue valve). Has been transitioned to our telemetry unit. Chest tubes were removed earlier. He remains somewhat short of breath and I will give him an additional dose of IV Lasix today. Encourage strict I&O and continued daily weights. Incentive spirometry. Chest x-ray in the morning. Platelet count has minimally decreased overnight. When holding Lovenox at this time. Remains in atrial fibrillation, rate controlled. Tolerating low-dose beta blockade. Tomorrow, will start very low-dose MAKAYLA inhibitor if his blood pressure will allow. Continue lipid-lowering agent. Encourage a physical activity. Will further discuss with Dr. Valadez and await additional recommendations. December 13, 2016 review of systems: Cardiovascular: Does describe chest pain as soreness, worse when taking deep breaths. Denies palpitations. Pulmonary: Shortness of breath with exertion, mild dyspnea at rest. Denies cough. Gastrointestinal: Denies abdominal pain, nausea or vomiting IMPRESSION/PLAN: 1. CAD S/P CABG - POD 3 CABG (VAZQUEZ to LAD). Slow improvement. Encouraged incentive spirometry. Encouraged deep breathing and coughing. Aspirin has been initiated. Tolerating low-dose beta-sona. Will start low- dose MAKAYLA inhibitor in the morning if blood pressure will allow 2. MITRAL REGURGITATION, SEVERE - now S/P MVR (tissue valve). 3. HYPERTENSION - hopefully, blood pressure will allow for MAKAYLA inhibitor to be started tomorrow. 4. DYSLIPIDEMIA - continue Crestor 20mg orally each evening. LDL 94. 5. ATRIAL FIBRILLATION - chronic for which he had been taking Coumadin for stroke prevention. Will restart Coumadin when Dr. Lees believes this is stable. Aspirin has been reinitiated. 6. ISCHEMIC CARDIOMYOPATHY - EF 40%. Hopefully, EF will improve S/P revascularization. Will give additional IV Lasix this morning 7. CAROTID BRUITS - recent carotid ultrasounds at [facility] reveal no significant stenosis bilaterally 8. ANEMIA - as expected post-operatively. Continue monitoring daily labs. 9. THROMBOCYTOPENIA - continue to follow his platelets daily. Holding introduction of Lovenox for now. Exam (Progress Note) - Constitutional Vitals: Period Temp Pulse Resp BP Sys/Aragon Pulse Ox Last 24 Hr 97.1 F-101.5 F 68-87 18-27 104-121/65-72 9-100 Exam: General: [Appears well with no apparent distress.] [Pleasant and cooperative. ] [Appears comfortable.] HEENT: [PERRL, normocephalic, atraumatic. Mucous membranes moist. No jaundice noted. Conjunctiva moist and clear, sclerae anicteric] Neck: No JVD/HJR, no thyromegaly or lymphadenopathy noted. Soft bilateral carotid bruits. Cardiac: [Irregularly irregular rhythm, controlled rate. Friction rub noted. Dressing to sternum dry and intact. Lungs: [Shallow breathing noted. Mild expiratory crackles in the bases. Continues to require oxygen via nasal prongs. Abdomen: Soft, bowel sounds normoactive. Nontender and nondistended. No abdominal bruit or thrill noted. No masses noted. Musculoskeletal: No fluid collection. Decreased range of motion is noted. Right lower extremity edema 1+. Right lower extremity vein harvest site without dehiscence or drainage Extremities: No clubbing, cyanosis noted. [ No edema noted.] Upper extremity pulses 2+. Lower extremity pulses 2+. Capillary refill less than 3 seconds. Skin: No unusual lesions or rashes. No skin breakdown appreciated. Neuro: Awake, alert and oriented 3. Moves all extremities well without hemiparesis or paralysis. No essential tremor is appreciated. Result/EKG - Labs CBC & BMP: 12/13/16 04:52 12/13/16 04:52 Lab Results: I have reviewed the past 24 hour labs Labs: Laboratory Results - last 24 hr 12/12/16 12/13/16 12/13/16 15:52 04:52 04:52 WBC 10.8 RBC 3.04 L Hgb 10.1 L Hct 29.0 L MCV 95.4 MCH 33 MCHC 34.8 RDW 14.9 Plt Count 88 L MPV 10.8 Neut % (Auto) 84.8 H Lymph % (Auto) 4.9 L [place] % (Auto) 9.5 Eos % (Auto) 0.1 Baso % (Auto) 0.1 Neut # (Auto) 9.2 H Lymph # (Auto) 0.5 L [place] # (Auto) 1.0 H Eos # (Auto) 0.0 Baso # (Auto) 0.0 Total Counted 100 Immature Gran % 0.6 Nucleated RBC % 0.0 Immature Gran # 0.07 Segmented Neutrophils 90 H Lymphocytes 6 L Monocytes 4 Nucleated RBCs # 0.00 Platelet Estimate Decreased Giant Platelets Few Immature Plt Fraction 6.4 Hypochromasia 1+ Microcytosis Slight Morphology Comment Sodium 143 Potassium 3.9 Chloride 107 Carbon Dioxide 29 Anion Gap 10.9 BUN 25 H Creatinine 0.80 GFR Calculation 98 BUN/Creatinine Ratio 31.00 H Glucose 92 POC Glucose 89 Calculated Osmolality 288.0 Calcium 8.0 L Magnesium 2.3 12/13/16 12/13/16 12/13/16 04:52 08:01 11:59 WBC RBC Hgb Hct MCV MCH MCHC RDW Plt Count MPV Neut % (Auto) Lymph % (Auto) [place] % (Auto) Eos % (Auto) Baso % (Auto) Neut # (Auto) Lymph # (Auto) [place] # (Auto) Eos # (Auto) Baso # (Auto) Total Counted Immature Gran % Nucleated RBC % Immature Gran # Segmented Neutrophils Lymphocytes Monocytes Nucleated RBCs # Platelet Estimate Giant Platelets Immature Plt Fraction Hypochromasia Microcytosis Morphology Comment Sodium 142 Potassium 3.9 Chloride 106 Carbon Dioxide 29 Anion Gap 10.9 BUN 26 H Creatinine 0.80 GFR Calculation 98 BUN/Creatinine Ratio 32.00 H Glucose 96 POC Glucose 108 H 132 H Calculated Osmolality 287.1 Calcium 7.9 L Magnesium 2.3 - Diagnostic Findings Procedure: Chest x-ray: report reviewed by nm - EKG EKG results: interpreted by nm EKG shows: atrial fibrillation Quality Measures - VTE Contraindication to Pharmacological VTE Prophylaxis: Active Bleeding Specialty Discharge - Follow Up or Referrals <Marek Valadez Kahlil - Last Filed: 12/13/16 14:47> Cardiology - PN: Subj Interval history: Patient personally interviewed and examined today. He is making reasonably good progress from his bypass surgery. I discussed his case with Gaby Gilbert NP and reviewed the case and plans with her. I agree with the stated evaluation and assessment and plan. The patient is making good progress from his bypass surgery and mitral valve replacement. His right lower extremity is little edematous and some question of some reaction from the bandage. Hemodynamically he is done well. His rhythm remains atrial fibrillation which is chronic with controlled ventricular response. He has had no dysrhythmias. He states appetite is fairly good. He has been up in the room some. He has had no fever. His output remains good. We will need to continue to monitor the patient especially his rhythm and he hemodynamics. With his left lower extremity not being edematous I think we can watch his right leg edema. Will need to be cautious about over the aggressively diuresing the patient if we diurese him some. He does have an ejection fraction 40% before surgery. We will continue to monitor him though with Dr. Lees. Exam (Progress Note) - Constitutional Vitals: Period Temp Pulse Resp BP Sys/Aragon Pulse Ox Last 24 Hr 97.1 F-101.5 F 68-87 18-24 104-121/65-72 93-100 Result/EKG - Labs CBC & BMP: 12/13/16 04:52 12/13/16 04:52 Labs: Laboratory Results - last 24 hr 12/12/16 12/13/16 12/13/16 15:52 04:52 04:52 WBC 10.8 RBC 3.04 L Hgb 10.1 L Hct 29.0 L MCV 95.4 MCH 33 MCHC 34.8 RDW 14.9 Plt Count 88 L MPV 10.8 Neut % (Auto) 84.8 H Lymph % (Auto) 4.9 L [place] % (Auto) 9.5 Eos % (Auto) 0.1 Baso % (Auto) 0.1 Neut # (Auto) 9.2 H Lymph # (Auto) 0.5 L [place] # (Auto) 1.0 H Eos # (Auto) 0.0 Baso # (Auto) 0.0 Total Counted 100 Immature Gran % 0.6 Nucleated RBC % 0.0 Immature Gran # 0.07 Segmented Neutrophils 90 H Lymphocytes 6 L Monocytes 4 Nucleated RBCs # 0.00 Platelet Estimate Decreased Giant Platelets Few Immature Plt Fraction 6.4 Hypochromasia 1+ Microcytosis Slight Morphology Comment Sodium 143 Potassium 3.9 Chloride 107 Carbon Dioxide 29 Anion Gap 10.9 BUN 25 H Creatinine 0.80 GFR Calculation 98 BUN/Creatinine Ratio 31.00 H Glucose 92 POC Glucose 89 Calculated Osmolality 288.0 Calcium 8.0 L Magnesium 2.3 12/13/16 12/13/16 12/13/16 04:52 08:01 11:59 WBC RBC Hgb Hct MCV MCH MCHC RDW Plt Count MPV Neut % (Auto) Lymph % (Auto) [place] % (Auto) Eos % (Auto) Baso % (Auto) Neut # (Auto) Lymph # (Auto) [place] # (Auto) Eos # (Auto) Baso # (Auto) Total Counted Immature Gran % Nucleated RBC % Immature Gran # Segmented Neutrophils Lymphocytes Monocytes Nucleated RBCs # Platelet Estimate Giant Platelets Immature Plt Fraction Hypochromasia Microcytosis Morphology Comment Sodium 142 Potassium 3.9 Chloride 106 Carbon Dioxide 29 Anion Gap 10.9 BUN 26 H Creatinine 0.80 GFR Calculation 98 BUN/Creatinine Ratio 32.00 H Glucose 96 POC Glucose 108 H 132 H Calculated Osmolality 287.1 Calcium 7.9 L Magnesium 2.3
[2016-12-13] MEDS: FUROSEMIDE 40 MG/4 ML VIAL IV SCH ×3 (13:00→22:19)
[2016-12-13] MEDS ORDERED: INFLUENZA VIRUS VACCINE 0.5 ML SYRINGE IM ONE (16:24)
[2016-12-13] MEDS ORDERED: diphenhydrAMINE CAP 50 MG CAPSULE PO ONE (20:12)
[2016-12-13] MEDS ORDERED: ACETYLCYSTEINE 20% 800 MG/4 ML VIAL RESP TX ONE (21:32)
[2016-12-13] MEDS ORDERED: LEVALBUTEROL 1.25 MG/3 ML NEB RESP TX ONE (21:35)
[2016-12-13] MEDS ORDERED: methylPREDNISolone SOD SUC 40 MG/1 ML VIAL IV ONE (21:50)
--- NOTE | 2016-12-13 22:07 | XRay Report ---
Exam: XR chest 1V portable Date: 12/13/2016 9:35 PM Indication: Shortness of breath Comparison: 12/13/2016 earlier today Technical: AP Findings: Cardiomegaly is present with low volume effusions and mild alveolar edema. Sternotomy wires are present. ASVD is present. External cardiac leads are present. No pneumothorax. Mediastinum is intact right IJ catheter is present Impression: 1. Cardiomegaly with previous sternotomy with minimal tiny low volume effusions and cardiac decompensation 2. No obvious pneumothorax present. Small right IJ catheter is suspected PROCEDURE INTERPRETED AT [facility] DEPARTMENT OF RADIOLOGY Final Report Signed by: Dr. Lars Alanis
[2016-12-13] MEDS ORDERED: FUROSEMIDE 40 MG/4 ML VIAL IV ONE (22:09)
[2016-12-13] MEDS ORDERED: HALOPERIDOL 5 MG/ML AMP IV ONE (22:13)
--- NOTE | 2016-12-13 22:43 | Event Note ---
I got called by the nurse that the patient had fell while going to the bathroom. She heard him falling and she immediately checked on him and he was found sitting up on the floor. I reviewed within minutes to the patient's bedside. At that time he was alert oriented 3. He stated that he did not hit his head just slipped. There was severe wheezes noted. His vital signs were all within normal limits and his hemodynamics were good. His EKG was unchanged from earlier EKGs. He was saturating around 95% on 2 L nasal cannula. I ordered him breathing treatment with Xopenex and Mucomyst inhalation. I was told that he refuses earlier bronchodilator treatment. Later on he became confused and severely agitated. He was moved to a room closer to nursing station and he was given Haldol which helped his agitation. After receiving Xopenex, 40 mg of Solu-Medrol IV, 40 of Lasix his expiratory wheezes improved significantly. The patient eventually calmed down. I spoke personally with Ms. Jacqueline Perez his , I explained to her all the updates on the patient. We will continue to monitor closely.
[2016-12-13] MEDS: ROSUVASTATIN 20 MG TABLET PO SCH (22:45)
[2016-12-13] MEDS: TAMSULOSIN 0.4 MG CAPSULE PO SCH (22:46)
[2016-12-14] MEDS: ALBUTEROL/IPRATROPIUM 3 ML NEB RESP TX SCH ×4 (00:13→10:40)
[2016-12-14] MEDS ORDERED: LEVALBUTEROL 1.25 MG/3 ML NEB RESP TX ONE (00:30)
[2016-12-14] MEDS: INSULIN REGULAR 100 UNIT/ML SUBCUT SCH ×6 (01:27→21:19)
[2016-12-14 05:00] LABS: Hematocrit 29.8 VOL% (42.0-52.0); Hemoglobin 10.5 GM/DL (14.0-18.0); Immature Granulocytes % 0.8 %; Immature Granulocytes Absolute 0.08 #; Lymphocytes # 0.3 10*3/uL (1.4-4.0); Lymphocytes % 3.1 % (21.2-54.2); Mean Corpuscular HGB Conc 35.2 GM/DL (32-36); Mean Corpuscular Hemoglobin 33 PG (27-34); Mean Corpuscular Volume 93.4 FL (87-102); Mean Platelet Volume 10.9 FL (9.6-12.0); Monocytes # 0.6 10*3/uL (0.11-0.8); Monocytes % 5.6 % (1.7-12.7); Neutrophils # 8.9 10*3/uL (1.4-7.4); Neutrophils % 90.5 % (38.7-73.9); Platelet Count 101 T/CUMM (130-400); Red Blood Count 3.19 MC/CUMM (3.8-5.5); Red Cell Distribution Width 14.3 % (9.3-17.3); White Blood Count 9.8 T/CUMM (4-12)
[2016-12-14 05:17] LABS: Calcium 7.6 MG/DL (8.5-10.1); Magnesium 2.3 MG/DL (1.8-2.4); Osmolality,Calculated 285.4 MOS/KG (273-304); Potassium 3.3 MMOL/L (3.5-5.1)
[2016-12-14 06:18] LABS: Lymphocytes 4 % (20-55); Platelet Estimate Adequate; Segmented Neutrophils 92 % (50-85); Total Cells Counted 100
--- NOTE | 2016-12-14 08:09 | Cardiology Progress Note ---
Assessment and Plan (1) Chronic atrial fibrillation Status: Chronic Assessment and plan: This is stable. Ventricular response is stable. He needs to be back on his warfarin whenever surgery feels he is stable enough to do so. Current Visit: Yes (2) Chronic anticoagulation Status: Chronic Current Visit: No (3) CAD (coronary artery disease) Status: Chronic Assessment and plan: Status post CABG doing well. Current Visit: Yes Qualifiers: Coronary Disease-Associated Artery/Lesion type: [place] artery [place] vs. transplanted heart: [place] heart Associated angina: with stable angina Qualified Code(s): I25.118 - Atherosclerotic heart disease of [place] coronary artery with other forms of angina pectoris (4) Mitral regurgitation Status: Chronic Assessment and plan: Post tissue mitral valve replacement. Stable. Current Visit: Yes Qualifiers: Cardiac valve disease etiology: nonrheumatic Qualified Code(s): I34.0 - Nonrheumatic mitral (valve) insufficiency (5) Dyslipidemia Status: Chronic Assessment and plan: He is on rosuvastatin. Current Visit: Yes (6) High risk medication use Status: Chronic Assessment and plan: He has been on warfarin. Current Visit: Yes (7) Bilateral carotid bruits Status: Chronic Current Visit: Yes (8) S/P MVR (mitral valve replacement) Status: Acute Assessment and plan: This with tissue valve. This is stable at this time. Current Visit: Yes (9) S/P CABG x 1 Status: Acute Assessment and plan: Recently done a summation and stable postoperatively from the standpoint. Current Visit: Yes Cardiology - PN: Subj Interval history: Events of last night are noted. The patient is stable. He seemed to be fairly oriented this morning wanting to take off the restraints before his family because because he feels he would be embarrassed by them. Noted last night and notes that he was having some wheezing. This morning he does not seem to be wheezing and fairly good air movement is no respiratory distress and his O2 saturations are in the upper 90s. ECG reveals atrial fibrillation which is chronic with isolated PVC. He has intraventricular conduction abnormality. He has had no focal deficits neurologically and I suspect he is just been disoriented last night was a little weak and febrile. Certainly this patient upon discharge will need probable swing bed or rehab therapy. Patient's CBC today is stable and chemistries look overall stable. He is renal function is good. His potassium is low. He is on potassium replacement protocol. We will get a chest x-ray just to make sure everything looks clear since he has some wheezing last night. Exam (Progress Note) - Constitutional Vitals: Period Temp Pulse Resp BP Sys/Aragon Pulse Ox Last 24 Hr 97.7 F-98.1 F 74-98 18-20 116-151/69-83 93-98 Exam: General appearance: Elderly man who is not febrile postop lying in bed with restraints. He is not agitated this morning and he said be fairly oriented. He converses well. HEENT: Atraumatic. Neck: Supple trachea midline. Soft carotid bruits. Lungs: Anteriorly laterally few crackles but overall good movement no gross wheezing. Cardiovascular: Irregular rhythm but regular managed. Chest wall: Sternotomy wound looks good. He has little ecchymosis that is postop. Abdomen: Soft bowel sounds are present. Nontender. Extremities: Right lower extremity graft donor site looks good. Neurologic: Patient is moving all extremities appears to be fairly functionally normal without focal deficit. Psychiatric: Patient is fairly cognitive today. He may just be a little off but nothing particular or specific. Skin: Surgical wounds look good. Result/EKG - Labs CBC & BMP: 12/14/16 04:00 12/14/16 04:57 Lab Results: I have reviewed the past 24 hour labs (Potassium little low but is on replacement protocol.) Labs: Laboratory Results - last 24 hr 12/13/16 12/13/16 12/13/16 11:59 16:07 20:46 WBC RBC Hgb Hct MCV MCH MCHC RDW Plt Count MPV Neut % (Auto) Lymph % (Auto) [place] % (Auto) Eos % (Auto) Baso % (Auto) Neut # (Auto) Lymph # (Auto) [place] # (Auto) Eos # (Auto) Baso # (Auto) Total Counted Immature Gran % Nucleated RBC % Immature Gran # Segmented Neutrophils Lymphocytes Monocytes Nucleated RBCs # Platelet Estimate Immature Plt Fraction Pappenheimer Bodies Sodium Potassium Chloride Carbon Dioxide Anion Gap BUN Creatinine GFR Calculation BUN/Creatinine Ratio Glucose POC Glucose 132 H 152 H 152 H Calculated Osmolality Lactic Acid Calcium Magnesium 12/14/16 12/14/16 12/14/16 04:00 04:32 04:57 WBC 9.8 RBC 3.19 L Hgb 10.5 L Hct 29.8 L MCV 93.4 MCH 33 MCHC 35.2 RDW 14.3 Plt Count 101 L MPV 10.9 Neut % (Auto) 90.5 H Lymph % (Auto) 3.1 L [place] % (Auto) 5.6 Eos % (Auto) 0.0 Baso % (Auto) 0.0 Neut # (Auto) 8.9 H Lymph # (Auto) 0.3 L [place] # (Auto) 0.6 Eos # (Auto) 0.0 Baso # (Auto) 0.0 Total Counted 100 Immature Gran % 0.8 Nucleated RBC % 0.0 Immature Gran # 0.08 Segmented Neutrophils 92 H Lymphocytes 4 L Monocytes 4 Nucleated RBCs # 0.00 Platelet Estimate Adequate Immature Plt Fraction 0.0 Pappenheimer Bodies Health Science Specialist Sodium 140 Potassium 3.3 L Chloride 102 Carbon Dioxide 33 H Anion Gap 8.3 BUN 23 H Creatinine 0.80 GFR Calculation 98 BUN/Creatinine Ratio 28.00 H Glucose 151 H POC Glucose 178 H Calculated Osmolality 285.4 Lactic Acid Calcium 7.6 L Magnesium 2.3 12/14/16 12/14/16 04:57 07:20 WBC RBC Hgb Hct MCV MCH MCHC RDW Plt Count MPV Neut % (Auto) Lymph % (Auto) [place] % (Auto) Eos % (Auto) Baso % (Auto) Neut # (Auto) Lymph # (Auto) [place] # (Auto) Eos # (Auto) Baso # (Auto) Total Counted Immature Gran % Nucleated RBC % Immature Gran # Segmented Neutrophils Lymphocytes Monocytes Nucleated RBCs # Platelet Estimate Immature Plt Fraction Pappenheimer Bodies Sodium Potassium Chloride Carbon Dioxide Anion Gap BUN Creatinine GFR Calculation BUN/Creatinine Ratio Glucose POC Glucose 158 H Calculated Osmolality Lactic Acid 1.2 Calcium Magnesium - Impressions Impressions: Telemetry atrial fibrillation controlled ventricular response and without any significant dysrhythmias. Quality Measures - VTE Contraindication to Pharmacological VTE Prophylaxis: Active Bleeding Specialty Discharge - Follow Up or Referrals
[2016-12-14] MEDS: CHLORHEXIDINE 0.12% ORAL RINSE 60 ML BOTTLE SWISH/SPIT SCH ×2 (08:40→21:18)
[2016-12-14] MEDS: ASPIRIN CHEW 81 MG TABLET PO SCH (08:40)
[2016-12-14] MEDS: FUROSEMIDE 40 MG TABLET PO SCH (08:40)
[2016-12-14] MEDS: METOPROLOL TARTRATE 25 MG TABLET PO SCH ×2 (08:40→21:17)
--- NOTE | 2016-12-14 10:34 | XRay Report ---
XR chest 1V portable Indication: Cardiac surgery, wheezing Comparison: 13 December 2016 Findings: The heart and mediastinum are stable in size and configuration with cardiac surgery changes. The pulmonary vascularity is increased with bilateral increased interstitial lung density. No other lung infiltrates, effusions, pneumothorax or other abnormality is demonstrated. Impression: Findings suggest cardiac decompensation. PROCEDURE INTERPRETED AT [facility] DEPARTMENT OF RADIOLOGY Final Report Signed by: Dr. Bryan Becerril
[2016-12-14] MEDS: POTASSIUM CHLORIDE RIDER 20 MEQ in PREMIX 1 EACH IV PRN ×3 (11:10→15:12)
[2016-12-14] MEDS ORDERED: LEVALBUTEROL 1.25 MG/3 ML NEB RESP TX SCH (13:00)
[2016-12-14] MEDS: ALBUTEROL 2.5 MG/3 ML NEB RESP TX SCH ×2 (13:32→19:05)
[2016-12-14] MEDS: BUDESONIDE/FORMOTEROL 160-4.5 INHALER 6 GM INH SCH ×2 (14:54→21:19)
--- NOTE | 2016-12-14 15:00 | Cardiothoracic Progress Note ---
Assessment and Plan (1) Chest pain Status: Acute Assessment and plan: Postoperative day 4 status post mitral valve replacement with size 34 bioprosthetic, CABG with VAZQUEZ LAD. The patient had an episode of confusion last night. That was treated with 2 mg of Haldol. Details of the event are dictated and another event note. Today he is awake alert oriented 3. He is on room air and saturation 97%. He has been out of bed to chair. He is tolerating his diet. He has no problems and denies any pain. Will continue ambulation and physical activity. If he continues to do well we will likely discharge him to rehab on Friday Current Visit: No Exam (Progress Note) - Constitutional Vitals: Period Temp Pulse Resp BP Sys/Aragon Pulse Ox Last 24 Hr 97.7 F-98.2 F 77-98 17-22 116-151/71-83 93-98 Result/EKG - Labs CBC & BMP: 12/14/16 04:00 12/14/16 04:57 Labs: Laboratory Results - last 24 hr 12/13/16 12/13/16 12/14/16 16:07 20:46 04:00 WBC 9.8 RBC 3.19 L Hgb 10.5 L Hct 29.8 L MCV 93.4 MCH 33 MCHC 35.2 RDW 14.3 Plt Count 101 L MPV 10.9 Neut % (Auto) 90.5 H Lymph % (Auto) 3.1 L [place] % (Auto) 5.6 Eos % (Auto) 0.0 Baso % (Auto) 0.0 Neut # (Auto) 8.9 H Lymph # (Auto) 0.3 L [place] # (Auto) 0.6 Eos # (Auto) 0.0 Baso # (Auto) 0.0 Total Counted 100 Immature Gran % 0.8 Nucleated RBC % 0.0 Immature Gran # 0.08 Segmented Neutrophils 92 H Lymphocytes 4 L Monocytes 4 Nucleated RBCs # 0.00 Platelet Estimate Adequate Immature Plt Fraction 0.0 Pappenheimer Bodies Ch[employer] Screen Tender Sodium Potassium Chloride Carbon Dioxide Anion Gap BUN Creatinine GFR Calculation BUN/Creatinine Ratio Glucose POC Glucose 152 H 152 H Calculated Osmolality Lactic Acid Calcium Magnesium 12/14/16 12/14/16 12/14/16 04:32 04:57 04:57 WBC RBC Hgb Hct MCV MCH MCHC RDW Plt Count MPV Neut % (Auto) Lymph % (Auto) [place] % (Auto) Eos % (Auto) Baso % (Auto) Neut # (Auto) Lymph # (Auto) [place] # (Auto) Eos # (Auto) Baso # (Auto) Total Counted Immature Gran % Nucleated RBC % Immature Gran # Segmented Neutrophils Lymphocytes Monocytes Nucleated RBCs # Platelet Estimate Immature Plt Fraction Pappenheimer Bodies Sodium 140 Potassium 3.3 L Chloride 102 Carbon Dioxide 33 H Anion Gap 8.3 BUN 23 H Creatinine 0.80 GFR Calculation 98 BUN/Creatinine Ratio 28.00 H Glucose 151 H POC Glucose 178 H Calculated Osmolality 285.4 Lactic Acid 1.2 Calcium 7.6 L Magnesium 2.3 12/14/16 07:20 WBC RBC Hgb Hct MCV MCH MCHC RDW Plt Count MPV Neut % (Auto) Lymph % (Auto) [place] % (Auto) Eos % (Auto) Baso % (Auto) Neut # (Auto) Lymph # (Auto) [place] # (Auto) Eos # (Auto) Baso # (Auto) Total Counted Immature Gran % Nucleated RBC % Immature Gran # Segmented Neutrophils Lymphocytes Monocytes Nucleated RBCs # Platelet Estimate Immature Plt Fraction Pappenheimer Bodies Sodium Potassium Chloride Carbon Dioxide Anion Gap BUN Creatinine GFR Calculation BUN/Creatinine Ratio Glucose POC Glucose 158 H Calculated Osmolality Lactic Acid Calcium Magnesium Quality Measures - VTE Contraindication to Pharmacological VTE Prophylaxis: Active Bleeding Specialty Discharge - Follow Up or Referrals
[2016-12-14] MEDS: MORPHINE 2 MG/1 ML SYRINGE IV PRN (16:48)
[2016-12-14] MEDS ORDERED: FUROSEMIDE 40 MG/4 ML VIAL IV ONE ×2 (16:49→20:41)
[2016-12-14] MEDS ORDERED: ACETYLCYSTEINE 20% 800 MG/4 ML VIAL RESP TX ONE (16:50)
[2016-12-14] MEDS: ALBUTEROL/IPRATROPIUM 3 ML NEB RESP TX PRN ×2 (17:15→20:52)
[2016-12-14] MEDS ORDERED: MELATONIN 3 MG TABLET PO SCH (21:00)
[2016-12-14] MEDS: ACETAMINOPHEN 325 MG TABLET PO PRN (21:17)
[2016-12-14] MEDS: TAMSULOSIN 0.4 MG CAPSULE PO SCH (21:17)
[2016-12-14] MEDS: ROSUVASTATIN 20 MG TABLET PO SCH (21:18)
[2016-12-15] MEDS: ALBUTEROL 2.5 MG/3 ML NEB RESP TX SCH ×4 (00:10→19:41)
[2016-12-15] MEDS: INSULIN REGULAR 100 UNIT/ML SUBCUT SCH ×6 (01:38→21:50)
[2016-12-15] MEDS: ALBUTEROL/IPRATROPIUM 3 ML NEB RESP TX PRN (03:52)
[2016-12-15 04:39] LABS: Basophils % 0.1 % (0.0-0.8); Eosinophils # 0.1 10*3/uL (0.0-0.87); Eosinophils % 0.7 % (0.00-10.9); Hematocrit 30.6 VOL% (42.0-52.0); Hemoglobin 10.6 GM/DL (14.0-18.0); Immature Granulocytes % 1.1 %; Immature Granulocytes Absolute 0.12 #; Lymphocytes # 0.8 10*3/uL (1.4-4.0); Lymphocytes % 7.4 % (21.2-54.2); Mean Corpuscular HGB Conc 34.6 GM/DL (32-36); Mean Corpuscular Hemoglobin 32 PG (27-34); Mean Platelet Volume 11.1 FL (9.6-12.0); Monocytes # 1.3 10*3/uL (0.11-0.8); Monocytes % 12.3 % (1.7-12.7); Neutrophils # 8.5 10*3/uL (1.4-7.4); Neutrophils % 78.4 % (38.7-73.9); Platelet Count 133 T/CUMM (130-400); Red Blood Count 3.29 MC/CUMM (3.8-5.5); Red Cell Distribution Width 14.5 % (9.3-17.3); White Blood Count 10.9 T/CUMM (4-12)
[2016-12-15 04:45] LABS: Calcium 7.9 MG/DL (8.5-10.1); Magnesium 2.3 MG/DL (1.8-2.4); Osmolality,Calculated 284.3 MOS/KG (273-304); Potassium 3.2 MMOL/L (3.5-5.1)
[2016-12-15] MEDS: POTASSIUM CHLORIDE RIDER 20 MEQ in PREMIX 1 EACH IV PRN (05:23)
[2016-12-15] MEDS: ASPIRIN CHEW 81 MG TABLET PO SCH (08:32)
[2016-12-15] MEDS: FUROSEMIDE 40 MG TABLET PO SCH (08:32)
[2016-12-15] MEDS: METOPROLOL TARTRATE 25 MG TABLET PO SCH ×2 (08:32→20:34)
[2016-12-15] MEDS: CHLORHEXIDINE 0.12% ORAL RINSE 60 ML BOTTLE SWISH/SPIT SCH ×2 (08:37→20:38)
[2016-12-15] MEDS: BUDESONIDE/FORMOTEROL 160-4.5 INHALER 6 GM INH SCH ×2 (08:37→20:37)
[2016-12-15] MEDS: PANTOPRAZOLE 40 MG TABLET PO SCH (09:48)
--- NOTE | 2016-12-15 12:20 | Cardiology Progress Note ---
Assessment and Plan (1) Chronic atrial fibrillation Status: Chronic Assessment and plan: This is stable. Ventricular response is stable. He needs to be back on his warfarin whenever surgery feels he is stable enough to do so and will plan on starting this tomorrow if he is stable. Current Visit: Yes (2) Chronic anticoagulation Status: Chronic Current Visit: No (3) CAD (coronary artery disease) Status: Chronic Assessment and plan: Status post CABG doing well. No angina symptomatology. Current Visit: Yes Qualifiers: Coronary Disease-Associated Artery/Lesion type: [place] artery [place] vs. transplanted heart: [place] heart Associated angina: with stable angina Qualified Code(s): I25.118 - Atherosclerotic heart disease of [place] coronary artery with other forms of angina pectoris (4) Mitral regurgitation Status: Chronic Assessment and plan: Post tissue mitral valve replacement. Stable. Current Visit: Yes Qualifiers: Cardiac valve disease etiology: nonrheumatic Qualified Code(s): I34.0 - Nonrheumatic mitral (valve) insufficiency (5) Dyslipidemia Status: Chronic Assessment and plan: He is on rosuvastatin. Current Visit: Yes (6) High risk medication use Status: Chronic Assessment and plan: He has been on warfarin we will go ahead and restart this.. Current Visit: Yes (7) Bilateral carotid bruits Status: Chronic Current Visit: Yes (8) S/P MVR (mitral valve replacement) Status: Acute Assessment and plan: This with tissue valve. This is stable at this time. Current Visit: Yes (9) S/P CABG x 1 Status: Acute Assessment and plan: Recently done a summation and stable postoperatively from the standpoint. Current Visit: Yes Cardiology - PN: Subj Interval history: Mr. Perez is doing well this morning. Since yesterday morning he has not had episodes of agitation like he had Friday night. He is not in restraints and not requiring these at this time. He has no real specific complaints today other than some postoperative soreness. He is not had any nausea or vomiting. His appetite is fairly good. He has his son and daughter who are with him today. They have no observations to offer. They have no questions specifically. He has had no dysrhythmias but has his chronic atrial fibrillation. Vital signs are doing well. We await continued therapy and hopefully discharge before long and may be to swing bed for rehab. Exam (Progress Note) - Constitutional Vitals: Period Temp Pulse Resp BP Sys/Aragon Pulse Ox Last 24 Hr 97.9 F-99.2 F 66-97 16-20 111-140/69-86 94-99 Exam: General appearance: Elderly man who is awake and alert oriented. His family is in the room with him now. He has no real specific complaints HEENT: Atraumatic. Neck: Supple trachea midline. Soft carotid bruits. Lungs: Anteriorly laterally f with some central rhonchi that is minimal overall good movement no gross wheezing. Cardiovascular: Irregular rhythm without gross murmur. Chest wall: Sternotomy wound looks good. Has a small bandage at the upper portion of the incision. Abdomen: Soft bowel sounds are present. Nontender. Extremities: Right lower extremity graft donor site looks good with some bandaging at the lower incision. Neurologic: Patient is moving all extremities appears to be fairly functionally normal without focal deficit. Psychiatric: Patient is fairly cognitive today. He certainly is appropriate. Skin: Surgical wounds look good. Result/EKG - Labs CBC & BMP: 12/15/16 04:01 12/15/16 04:01 Lab Results: I have reviewed the past 24 hour labs Labs: Laboratory Results - last 24 hr 12/14/16 12/14/16 12/14/16 11:33 15:43 20:41 WBC RBC Hgb Hct MCV MCH MCHC RDW Plt Count MPV Neut % (Auto) Lymph % (Auto) [place] % (Auto) Eos % (Auto) Baso % (Auto) Neut # (Auto) Lymph # (Auto) [place] # (Auto) Eos # (Auto) Baso # (Auto) Immature Gran % Nucleated RBC % Immature Gran # Nucleated RBCs # Immature Plt Fraction Sodium Potassium Chloride Carbon Dioxide Anion Gap BUN Creatinine GFR Calculation BUN/Creatinine Ratio Glucose POC Glucose 164 H 208 H 146 H Calculated Osmolality Calcium Magnesium 12/15/16 12/15/16 12/15/16 04:01 04:01 04:20 WBC 10.9 RBC 3.29 L Hgb 10.6 L Hct 30.6 L MCV 93.0 MCH 32 MCHC 34.6 RDW 14.5 Plt Count 133 D MPV 11.1 Neut % (Auto) 78.4 H Lymph % (Auto) 7.4 L [place] % (Auto) 12.3 Eos % (Auto) 0.7 Baso % (Auto) 0.1 Neut # (Auto) 8.5 H Lymph # (Auto) 0.8 L [place] # (Auto) 1.3 H Eos # (Auto) 0.1 Baso # (Auto) 0.0 Immature Gran % 1.1 Nucleated RBC % 0.0 Immature Gran # 0.12 Nucleated RBCs # 0.00 Immature Plt Fraction 0.0 Sodium 141 Potassium 3.2 L Chloride 103 Carbon Dioxide 33 H Anion Gap 8.2 BUN 20 H Creatinine 0.80 GFR Calculation 100 BUN/Creatinine Ratio 25.00 H Glucose 111 H POC Glucose 139 H Calculated Osmolality 284.3 Calcium 7.9 L Magnesium 2.3 12/15/16 12/15/16 07:50 12:00 WBC RBC Hgb Hct MCV MCH MCHC RDW Plt Count MPV Neut % (Auto) Lymph % (Auto) [place] % (Auto) Eos % (Auto) Baso % (Auto) Neut # (Auto) Lymph # (Auto) [place] # (Auto) Eos # (Auto) Baso # (Auto) Immature Gran % Nucleated RBC % Immature Gran # Nucleated RBCs # Immature Plt Fraction Sodium Potassium Chloride Carbon Dioxide Anion Gap BUN Creatinine GFR Calculation BUN/Creatinine Ratio Glucose POC Glucose 137 H 164 H Calculated Osmolality Calcium Magnesium - Impressions Impressions: Telemetry with atrial fibrillation managed ventricular response without any other dysrhythmias. Quality Measures - VTE Contraindication to Pharmacological VTE Prophylaxis: Active Bleeding Specialty Discharge - Follow Up or Referrals
[2016-12-15] MEDS ORDERED: POTASSIUM CHLORIDE 20 MEQ TABLET PO ONE ×2 (12:22→13:03)
[2016-12-15] MEDS ORDERED: WARFARIN 5 MG TABLET PO ONE (12:24)
--- NOTE | 2016-12-15 13:02 | Cardiothoracic Progress Note ---
Assessment and Plan (1) Chest pain Status: Acute Assessment and plan: Postoperative day 5 status post mitral valve replacement with size 34 bioprosthetic, CABG with VAZQUEZ LAD. T patient is awake alert oriented 3 without any problems. His wheezing is and is well controlled with DuoNeb, and Xopenex. Expiratory will start his on anticoagulation for A. fib tomorrow. I will consult pulmonology tomorrow for control of his asthma-like symptoms and for consideration for LTAC placement at [facility]. Current Visit: No Exam (Progress Note) - Constitutional Vitals: Period Temp Pulse Resp BP Sys/Aragon Pulse Ox Last 24 Hr 97.9 F-99.2 F 66-97 16-20 107-140/63-86 93-99 Result/EKG - Labs CBC & BMP: 12/15/16 04:01 12/15/16 04:01 Labs: Laboratory Results - last 24 hr 12/14/16 12/14/16 12/14/16 11:33 15:43 20:41 WBC RBC Hgb Hct MCV MCH MCHC RDW Plt Count MPV Neut % (Auto) Lymph % (Auto) [place] % (Auto) Eos % (Auto) Baso % (Auto) Neut # (Auto) Lymph # (Auto) [place] # (Auto) Eos # (Auto) Baso # (Auto) Immature Gran % Nucleated RBC % Immature Gran # Nucleated RBCs # Immature Plt Fraction Sodium Potassium Chloride Carbon Dioxide Anion Gap BUN Creatinine GFR Calculation BUN/Creatinine Ratio Glucose POC Glucose 164 H 208 H 146 H Calculated Osmolality Calcium Magnesium 12/15/16 12/15/16 12/15/16 04:01 04:01 04:20 WBC 10.9 RBC 3.29 L Hgb 10.6 L Hct 30.6 L MCV 93.0 MCH 32 MCHC 34.6 RDW 14.5 Plt Count 133 D MPV 11.1 Neut % (Auto) 78.4 H Lymph % (Auto) 7.4 L [place] % (Auto) 12.3 Eos % (Auto) 0.7 Baso % (Auto) 0.1 Neut # (Auto) 8.5 H Lymph # (Auto) 0.8 L [place] # (Auto) 1.3 H Eos # (Auto) 0.1 Baso # (Auto) 0.0 Immature Gran % 1.1 Nucleated RBC % 0.0 Immature Gran # 0.12 Nucleated RBCs # 0.00 Immature Plt Fraction 0.0 Sodium 141 Potassium 3.2 L Chloride 103 Carbon Dioxide 33 H Anion Gap 8.2 BUN 20 H Creatinine 0.80 GFR Calculation 100 BUN/Creatinine Ratio 25.00 H Glucose 111 H POC Glucose 139 H Calculated Osmolality 284.3 Calcium 7.9 L Magnesium 2.3 12/15/16 12/15/16 07:50 12:00 WBC RBC Hgb Hct MCV MCH MCHC RDW Plt Count MPV Neut % (Auto) Lymph % (Auto) [place] % (Auto) Eos % (Auto) Baso % (Auto) Neut # (Auto) Lymph # (Auto) [place] # (Auto) Eos # (Auto) Baso # (Auto) Immature Gran % Nucleated RBC % Immature Gran # Nucleated RBCs # Immature Plt Fraction Sodium Potassium Chloride Carbon Dioxide Anion Gap BUN Creatinine GFR Calculation BUN/Creatinine Ratio Glucose POC Glucose 137 H 164 H Calculated Osmolality Calcium Magnesium Quality Measures - VTE Contraindication to Pharmacological VTE Prophylaxis: Active Bleeding Specialty Discharge - Follow Up or Referrals
[2016-12-15] MEDS ORDERED: FUROSEMIDE 40 MG/4 ML VIAL IV ONE (13:03)
[2016-12-15] MEDS: ZOLPIDEM 5 MG TABLET PO SCH ×2 (18:05→23:11)
--- NOTE | 2016-12-15 19:49 | Order Completion Report ---
See report scanned to EMR
[2016-12-15] MEDS: ROSUVASTATIN 20 MG TABLET PO SCH (20:33)
[2016-12-15] MEDS: MONTELUKAST CHEW 5 MG TABLET PO SCH (20:33)
[2016-12-15] MEDS: TAMSULOSIN 0.4 MG CAPSULE PO SCH (20:34)
[2016-12-15] MEDS: ACETAMINOPHEN 325 MG TABLET PO PRN (20:35)
[2016-12-16] MEDS: INSULIN REGULAR 100 UNIT/ML SUBCUT SCH ×6 (01:15→20:43)
[2016-12-16] MEDS: ALBUTEROL 2.5 MG/3 ML NEB RESP TX SCH ×4 (01:26→19:12)
[2016-12-16] MEDS: ALBUTEROL/IPRATROPIUM 3 ML NEB RESP TX PRN (04:55)
[2016-12-16 05:52] LABS: Basophils % 0.1 % (0.0-0.8); Eosinophils # 0.1 10*3/uL (0.0-0.87); Eosinophils % 0.5 % (0.00-10.9); Hematocrit 32.8 VOL% (42.0-52.0); Hemoglobin 10.9 GM/DL (14.0-18.0); Immature Granulocytes % 1.1 %; Immature Granulocytes Absolute 0.12 #; Lymphocytes # 0.7 10*3/uL (1.4-4.0); Mean Corpuscular HGB Conc 33.2 GM/DL (32-36); Mean Corpuscular Hemoglobin 32 PG (27-34); Mean Corpuscular Volume 96.5 FL (87-102); Mean Platelet Volume 10.6 FL (9.6-12.0); Monocytes # 1.3 10*3/uL (0.11-0.8); Monocytes % 12.4 % (1.7-12.7); Neutrophils # 8.6 10*3/uL (1.4-7.4); Neutrophils % 79.9 % (38.7-73.9); Platelet Count 167 T/CUMM (130-400); Red Cell Distribution Width 14.6 % (9.3-17.3); White Blood Count 10.8 T/CUMM (4-12)
[2016-12-16 05:57] LABS: INR 1.2; PT Patient Result 12.7 SECS
[2016-12-16] MEDS: ACETAMINOPHEN 325 MG TABLET PO PRN (06:13)
[2016-12-16 06:25] LABS: Calcium 8.2 MG/DL (8.5-10.1); Magnesium 2.6 MG/DL (1.8-2.4); Osmolality,Calculated 286.1 MOS/KG (273-304); Potassium 4.1 MMOL/L (3.5-5.1)
--- NOTE | 2016-12-16 08:38 | Cardiology Progress Note ---
Assessment and Plan - Time spent with patient Time spent with patient: Greater than 30 minutes (1) CAD (coronary artery disease) Status: Chronic Assessment and plan: SEE PLAN OF CARE LISTED BELOW Current Visit: Yes Qualifiers: Coronary Disease-Associated Artery/Lesion type: [place] artery [place] vs. transplanted heart: [place] heart Associated angina: with stable angina Qualified Code(s): I25.118 - Atherosclerotic heart disease of [place] coronary artery with other forms of angina pectoris (2) Mitral regurgitation Status: Chronic Assessment and plan: SEE PLAN OF CARE LISTED BELOW Current Visit: Yes Qualifiers: Cardiac valve disease etiology: nonrheumatic Qualified Code(s): I34.0 - Nonrheumatic mitral (valve) insufficiency (3) Dyslipidemia Status: Chronic Assessment and plan: SEE PLAN OF CARE LISTED BELOW Current Visit: Yes (4) High risk medication use Status: Chronic Assessment and plan: SEE PLAN OF CARE LISTED BELOW Current Visit: Yes (5) Bilateral carotid bruits Status: Chronic Assessment and plan: SEE PLAN OF CARE LISTED BELOW Current Visit: Yes (6) Ischemic cardiomyopathy Status: Chronic Assessment and plan: SEE PLAN OF CARE LISTED BELOW Current Visit: Yes (7) Hypertension Status: Chronic Assessment and plan: SEE PLAN OF CARE LISTED BELOW Current Visit: No (8) Atrial fibrillation Status: Chronic Assessment and plan: SEE PLAN OF CARE LISTED BELOW Current Visit: No Qualifiers: Atrial fibrillation type: chronic Qualified Code(s): I48.2 - Chronic atrial fibrillation (9) History of mitral valve replacement with bioprosthetic valve Status: Acute Assessment and plan: SEE PLAN OF CARE LISTED BELOW Current Visit: Yes (10) S/P CABG x 1 Status: Acute Assessment and plan: SEE PLAN OF CARE LISTED BELOW Current Visit: Yes (11) Thrombocytopenia Status: Resolved Assessment and plan: SEE PLAN OF CARE LISTED BELOW Current Visit: Yes Cardiology - PN: Subj Interval history: EXCEPTIONAL NEEDS TEACHER: DR. PINA SUMMARY: Mr. Hernandez, 71WM, has a history of hypertension, dyslipidemia, atrial fibrillation. Admitted December 04, 2016 for elective cardiac catheterization. Identified was severe CAD involving the left main, LAD, circumflex and obtuse marginal coronary artery. EF 40%. Also confirmed was severe mitral regurgitation. History of atrial fibrillation. Had been taking Coumadin prior to heart catheterization. For this reason, given the severity of the CAD, patient was kept in the hospital for several days as we protected with IV heparin while allowing INR to normalize. December 10, 2016 underwent CABG 1 (VAZQUEZ to LAD) and MVR (tissue valve) performed by Dr. Lees. Patient was extubated within 24 hours and off pressors quickly. December 16, 2016: Patient is followed for chronic, stable conditions to include CAD, hypertension, mitral regurgitation, atrial fibrillation and ischemic cardiomyopathy (EF 40%). Over the weekend, patient had some confusion and required restraints. This morning, he is awake, alert and oriented 3. Still using oxygen via nasal byproducts. Brillation and dyslipidemia. Now S/P CABG and MVR (tissue valve), POD 2. His underlying hypertension is being closely followed and we have not yet restarted antihypertensives. At present, systolic blood pressure is averaging 110s, heart rate 80s-100s. He remains in atrial fibrillation. For this reason, I will start a very low-dose beta-sona this morning as we closely monitor his vital signs. He is currently taking Aspirin and when Dr. Lees believes it is safe to restart his Coumadin, will do so. We continue to follow his hemoglobin hematocrit daily as his anemia seems to have normalized overnight. Hopefully, patient will have chest tubes removed soon. He is somewhat short of breath this morning and therefore I will give an additional IV Lasix 40 mg this morning. After reviewing chest x-ray right basilar atelectasis has only mildly increased overnight. I will add incentive spirometry to prevent worsening atelectasis. I will further discuss with Dr. Valadez and await additional recommendations. 2016: Patient is continued to be followed for chronic stable conditions to include CAD, hypertension, mitral regurgitation, atrial fibrillation and ischemic cardiomyopathy. Currently postop day 6. He has lost 2-1/2 kg overnight. Still having shortness of breath but seems to be somewhat better. Warfarin was restarted last evening. Lovenox was discontinued due to thrombocytopenia over the weekend. This has also resolved. He continues to take Aspirin, beta-sona, lipid-lowering agent. Blood pressure will not allow for introduction of an MAKAYLA inhibitor/ARB. Hopefully, patient will be ready for rehabilitation soon. Will further discuss with Dr. Gardner and await additional recommendations. December 16, 2016 review of systems: Cardiovascular: Chest soreness with movement. Improved however. Denies palpitations or heart racing. Pulmonary: Shortness of breath with exertion, Denies cough. Gastrointestinal: Denies abdominal pain, nausea, vomiting or diarrhea. Appetite is good. IMPRESSION/PLAN: 1. CAD S/P CABG - POD 6 CABG (VAZQUEZ to LAD). Slow improvement. Once again today I encouraged incentive spirometry, deep breathing and coughing. Aspirin continues. Tolerating low-dose beta-sona. Blood pressure will not allow for introduction of an MAKAYLA inhibitor. Continue statin. 2. MITRAL REGURGITATION, SEVERE - now S/P MVR (tissue valve), POD 6. 3. HYPERTENSION - adequately controlled on low-dose beta-sona. 4. DYSLIPIDEMIA - continue Crestor 20mg orally each evening. LDL 94. 5. ATRIAL FIBRILLATION - chronic for which he had been taking Coumadin for stroke prevention. Coumadin was restarted yesterday. Patient was on Lovenox at one-point postoperatively. Platelet counts decrease and this was discontinued. 6. ISCHEMIC CARDIOMYOPATHY - EF 40%. Hopefully, EF will improve S/P revascularization. Will give additional IV Lasix this morning 7. CAROTID BRUITS - recent carotid ultrasounds at [facility] reveal no significant stenosis bilaterally 8. ANEMIA - as expected post-operatively. Continue monitoring daily labs. 9. THROMBOCYTOPENIA - now resolved. Exam (Progress Note) - Constitutional Vitals: Period Temp Pulse Resp BP Sys/Araogn Pulse Ox Last 24 Hr 98.1 F-99.7 F 55-99 16-22 107-137/63-81 93-99 Exam: General: [Appears well with no apparent distress.] [Pleasant and cooperative. ] [Appears comfortable.] HEENT: [PERRL, normocephalic, atraumatic. Mucous membranes moist. No jaundice noted. Conjunctiva moist and clear, sclerae anicteric] Neck: No JVD/HJR, no thyromegaly or lymphadenopathy noted. Soft bilateral carotid bruits. Cardiac: [Irregularly irregular rhythm, controlled rate. Friction rub noted. Dressing to sternum dry and intact. Lungs: [Rhonchi noted throughout. No wheezing. Continues to use oxygen via nasal prongs. Abdomen: Soft, bowel sounds normoactive. Nontender and nondistended. No abdominal bruit or thrill noted. No masses noted. Musculoskeletal: No fluid collection. Decreased range of motion is noted. No lower extremity edema noted. Right lower extremity vein harvest site without dehiscence or drainage Extremities: No clubbing, cyanosis noted. [ No edema noted.] Upper extremity pulses 2+. Lower extremity pulses 2+. Capillary refill less than 3 seconds. Skin: No unusual lesions or rashes. No skin breakdown appreciated. Neuro: Awake, alert and oriented 3. Moves all extremities well without hemiparesis or paralysis. No essential tremor is appreciated. Result/EKG - Labs CBC & BMP: 12/16/16 04:35 12/16/16 04:35 Lab Results: I have reviewed the past 24 hour labs Labs: Laboratory Results - last 24 hr 12/15/16 12/15/16 12/15/16 12:00 15:45 16:40 WBC RBC Hgb Hct MCV MCH MCHC RDW Plt Count MPV Neut % (Auto) Lymph % (Auto) [place] % (Auto) Eos % (Auto) Baso % (Auto) Neut # (Auto) Lymph # (Auto) [place] # (Auto) Eos # (Auto) Baso # (Auto) Immature Gran % Nucleated RBC % Immature Gran # Nucleated RBCs # Immature Plt Fraction INR PT Patient/Control Mix Sodium Potassium 3.6 Chloride Carbon Dioxide Anion Gap BUN Creatinine GFR Calculation BUN/Creatinine Ratio Glucose POC Glucose 164 H 148 H Calculated Osmolality Calcium Magnesium 12/15/16 12/16/16 12/16/16 19:41 04:35 04:35 WBC 10.8 RBC 3.40 L Hgb 10.9 L Hct 32.8 L MCV 96.5 MCH 32 MCHC 33.2 RDW 14.6 Plt Count 167 D MPV 10.6 Neut % (Auto) 79.9 H Lymph % (Auto) 6.0 L [place] % (Auto) 12.4 Eos % (Auto) 0.5 Baso % (Auto) 0.1 Neut # (Auto) 8.6 H Lymph # (Auto) 0.7 L [place] # (Auto) 1.3 H Eos # (Auto) 0.1 Baso # (Auto) 0.0 Immature Gran % 1.1 Nucleated RBC % 0.0 Immature Gran # 0.12 Nucleated RBCs # 0.00 Immature Plt Fraction 0.0 INR PT Patient/Control Mix Sodium 142 Potassium 4.1 Chloride 102 Carbon Dioxide 30 Anion Gap 14.1 BUN 20 H Creatinine 0.90 GFR Calculation 94 BUN/Creatinine Ratio 22.00 H Glucose 110 H POC Glucose 147 H Calculated Osmolality 286.1 Calcium 8.2 L Magnesium 2.6 H 12/16/16 12/16/16 04:35 05:18 WBC RBC Hgb Hct MCV MCH MCHC RDW Plt Count MPV Neut % (Auto) Lymph % (Auto) [place] % (Auto) Eos % (Auto) Baso % (Auto) Neut # (Auto) Lymph # (Auto) [place] # (Auto) Eos # (Auto) Baso # (Auto) Immature Gran % Nucleated RBC % Immature Gran # Nucleated RBCs # Immature Plt Fraction INR 1.2 PT Patient/Control Mix 12.7 Sodium Potassium Chloride Carbon Dioxide Anion Gap BUN Creatinine GFR Calculation BUN/Creatinine Ratio Glucose POC Glucose 128 H Calculated Osmolality Calcium Magnesium - EKG EKG results: interpreted by me EKG shows: atrial fibrillation Quality Measures - VTE Contraindication to Pharmacological VTE Prophylaxis: Active Bleeding Specialty Discharge - Follow Up or Referrals
--- NOTE | 2016-12-16 08:39 | Cardiothoracic Progress Note ---
Assessment and Plan (1) Chest pain Status: Acute Assessment and plan: Postoperative day 6 status post mitral valve replacement with size 34 bioprosthetic, CABG with VAZQUEZ LAD. The patient has been doing very well. His wheezing significantly improved. His hemodynamics have been stable without any problems. We will increase his ambulation and anticipate his discharge to rehab within the next 24 hours. He could be restarted on his Coumadin without transition. Current Visit: No Exam (Progress Note) - Constitutional Vitals: Period Temp Pulse Resp BP Sys/[place] Pulse Ox Last 24 Hr 98.1 F-99.7 F 55-99 16-22 107-137/63-81 93-99 Result/EKG - Labs CBC & BMP: 12/16/16 04:35 12/16/16 04:35 Labs: Laboratory Results - last 24 hr 12/15/16 12/15/16 12/15/16 12:00 15:45 16:40 WBC RBC Hgb Hct MCV MCH MCHC RDW Plt Count MPV Neut % (Auto) Lymph % (Auto) [place] % (Auto) Eos % (Auto) Baso % (Auto) Neut # (Auto) Lymph # (Auto) [place] # (Auto) Eos # (Auto) Baso # (Auto) Immature Gran % Nucleated RBC % Immature Gran # Nucleated RBCs # Immature Plt Fraction INR PT Patient/Control Mix Sodium Potassium 3.6 Chloride Carbon Dioxide Anion Gap BUN Creatinine GFR Calculation BUN/Creatinine Ratio Glucose POC Glucose 164 H 148 H Calculated Osmolality Calcium Magnesium 12/15/16 12/16/16 12/16/16 19:41 04:35 04:35 WBC 10.8 RBC 3.40 L Hgb 10.9 L Hct 32.8 L MCV 96.5 MCH 32 MCHC 33.2 RDW 14.6 Plt Count 167 D MPV 10.6 Neut % (Auto) 79.9 H Lymph % (Auto) 6.0 L [place] % (Auto) 12.4 Eos % (Auto) 0.5 Baso % (Auto) 0.1 Neut # (Auto) 8.6 H Lymph # (Auto) 0.7 L [place] # (Auto) 1.3 H Eos # (Auto) 0.1 Baso # (Auto) 0.0 Immature Gran % 1.1 Nucleated RBC % 0.0 Immature Gran # 0.12 Nucleated RBCs # 0.00 Immature Plt Fraction 0.0 INR PT Patient/Control Mix Sodium 142 Potassium 4.1 Chloride 102 Carbon Dioxide 30 Anion Gap 14.1 BUN 20 H Creatinine 0.90 GFR Calculation 94 BUN/Creatinine Ratio 22.00 H Glucose 110 H POC Glucose 147 H Calculated Osmolality 286.1 Calcium 8.2 L Magnesium 2.6 H 12/16/16 12/16/16 12/16/16 04:35 05:18 08:07 WBC RBC Hgb Hct MCV MCH MCHC RDW Plt Count MPV Neut % (Auto) Lymph % (Auto) [place] % (Auto) Eos % (Auto) Baso % (Auto) Neut # (Auto) Lymph # (Auto) [place] # (Auto) Eos # (Auto) Baso # (Auto) Immature Gran % Nucleated RBC % Immature Gran # Nucleated RBCs # Immature Plt Fraction INR 1.2 PT Patient/Control Mix 12.7 Sodium Potassium Chloride Carbon Dioxide Anion Gap BUN Creatinine GFR Calculation BUN/Creatinine Ratio Glucose POC Glucose 128 H 107 H Calculated Osmolality Calcium Magnesium Quality Measures - VTE Contraindication to Pharmacological VTE Prophylaxis: Active Bleeding Specialty Discharge - Follow Up or Referrals
[2016-12-16] MEDS: FUROSEMIDE 80 MG TABLET PO SCH (09:27)
[2016-12-16] MEDS: PANTOPRAZOLE 40 MG TABLET PO SCH (09:27)
[2016-12-16] MEDS: METOPROLOL TARTRATE 25 MG TABLET PO SCH ×2 (09:29→20:43)
[2016-12-16] MEDS: BUDESONIDE/FORMOTEROL 160-4.5 INHALER 6 GM INH SCH ×2 (09:30→20:44)
[2016-12-16] MEDS: CHLORHEXIDINE 0.12% ORAL RINSE 60 ML BOTTLE SWISH/SPIT SCH ×2 (09:30→20:44)
[2016-12-16] MEDS: ASPIRIN CHEW 81 MG TABLET PO SCH (09:42)
--- NOTE | 2016-12-16 10:56 | Discharge Summary ---
Hospital Course - Hospital Course Hospital Course: The patient had a cardiac cath and an echo showing severe ischemic MR with multivessel coronary artery disease. The patient at this point was on Coumadin for his A. fib and his fluid overloaded. He was admitted from the [facility] for fluid overload and to transition him off Coumadin for surgery. Eventually the patient was taken to surgery and CABG and MVR was performed. The patient did very well. He was extubated within 6 hours after surgery. He remained in the ICU postoperative day 1 for close observation. He was transferred to telemetry postoperative day 2. His chest tubes were removed. His pacing wires were removed. Postoperative day 3 and 4 the patient continued to progress. His only problem was that he was having trouble sleeping at night. He was allowed to take his home Ambien which helped significantly. He had some wheezing postoperatively which was treated well by DuoNeb and Xopenex. Postoperative day 5 and 6 the patient did very well without any problems. He was ambulating and active. Postoperative day 6 he was ready for discharge to a swing bed. I also started him on Coumadin postoperative day 6. Diagnosis - Discharge Diagnosis (1) Chest pain Status: Acute Specialty Discharge - Follow Up or Referrals Discharge Plan - Discharge Data Disposition: Disch/Xfer-Ip Rehab Fac Condition at Discharge: Stable Discharge Diet: advance to your usual diet Activity: resume usual activities as tolerated, ambulate only with your walker Hygiene: no restrictions Weight Bearing at Discharge: full weight bearing Driving: no restrictions Contact your physician if you experience:: fever over 101, Difficulty voiding, Redness or swelling, Shortness of breath - Discharge Medications New Aspirin EC Tab 325 mg PO Q4H #60 tablet Rosuvastatin [Crestor] 20 mg PO BEDTIME tablet Acetaminophen Tab [Tylenol Tab] 650 mg PO Q4H PRN tablet PRN Reason: Fever >101 Albuterol Neb [Proventil Neb] 2.5 mg RESP TX RT Q6H Albuterol/Ipratropium Neb [Duoneb] 3 ml RESP TX RT Q4H PRN PRN Reason: Shortness Of Breath/Wheezing Budesonide/Formoterol 160-4.5 [Symbicort 160-4.5] 2 puff INH BID inhaler Furosemide Tab [Lasix Tab] 80 mg PO DAILY tablet HYDROcodone/ACETAMIN 5-325 [[place] 5-325] 1 tablet PO Q4H PRN tablet PRN Reason: Pain Moderate (4-7) Metoprolol Tartrate Tab [Lopressor Tab] 25 mg PO BID tablet Montelukast Chew Tab [Singulair Chew Tab] 5 mg PO BEDTIME tablet Pantoprazole Tab [Protonix Tab] 40 mg PO DAILY tablet Tamsulosin [Flomax] 0.4 mg PO BEDTIME capsule Warfarin [Coumadin] 5 mg PO 1800 tablet Zolpidem [Ambien] 5 mg PO BEDTIME tablet Continue Levothyroxine Tab [Synthroid Tab] 25 mcg PO DAILY@0700 Gabapentin [Neurontin] 1,600 mg PO BID Furosemide Tab [Lasix Tab] 80 mg PO DAILY Citalopram Hydrobromide [Citalopram HBr] 20 mg PO BID Zolpidem Tartrate [Ambien] 10 mg PO BEDTIME Tamsulosin HCl 0.4 mg PO BID Discontinued Potassium Chloride [Klor-Con M20] 20 meq PO BID Lisinopril 10 mg PO DAILY Carvedilol 12.5 mg PO BID Warfarin [Coumadin] 3 mg PO DAILY - Follow Up or Referral - Forms/Instructions Instructions: Mitral Valve Replacement (DC), Heart Healthy Diet (GEN), Coronary Artery Bypass Graft, Vaudeville Actor (GEN), Sternal Precautions (GEN) Exam - Constitutional Vitals: Period Temp Pulse Resp BP Sys/Aragon Pulse Ox Last 24 Hr 98.1 F-99.7 F 55-99 16-22 107-137/63-81 93-99 Discharge Results Procedures and tests throughout hospitalization: Pending Orders 12/08/16 02:47 Fresh Frozen Plasma IN AM Red Blood Cells Leuko Red IN AM Single Donor Platelets IN AM Type and Screen Routine 12/17/16 04:00 BMP w/ Mg [Basic Metabolic Panel w/Mg] IN AM CBC [Comp Blood Count Auto Diff] IN AM Prothrombin Time INR IN AM 12/18/16 04:00 BMP w/ Mg [Basic Metabolic Panel w/Mg] IN AM CBC [Comp Blood Count Auto Diff] IN AM Prothrombin Time INR IN AM 12/19/16 04:00 Prothrombin Time INR IN AM Labs on day of discharge: Labs from last 24 hours 12/16/16 12/16/16 12/16/16 08:07 05:18 04:35 WBC RBC Hgb Hct MCV MCH MCHC RDW Plt Count MPV Neut % (Auto) Lymph % (Auto) [place] % (Auto) Eos % (Auto) Baso % (Auto) Neut # (Auto) Lymph # (Auto) [place] # (Auto) Eos # (Auto) Baso # (Auto) Immature Gran % Nucleated RBC % Immature Gran # Nucleated RBCs # Immature Plt Fraction INR 1.2 PT Patient/Control Mix 12.7 Sodium Potassium Chloride Carbon Dioxide Anion Gap BUN Creatinine GFR Calculation BUN/Creatinine Ratio Glucose POC Glucose 107 H 128 H Calculated Osmolality Calcium Magnesium 12/16/16 12/16/16 12/15/16 04:35 04:35 19:41 WBC 10.8 RBC 3.40 L Hgb 10.9 L Hct 32.8 L MCV 96.5 MCH 32 MCHC 33.2 RDW 14.6 Plt Count 167 D MPV 10.6 Neut % (Auto) 79.9 H Lymph % (Auto) 6.0 L [place] % (Auto) 12.4 Eos % (Auto) 0.5 Baso % (Auto) 0.1 Neut # (Auto) 8.6 H Lymph # (Auto) 0.7 L [place] # (Auto) 1.3 H Eos # (Auto) 0.1 Baso # (Auto) 0.0 Immature Gran % 1.1 Nucleated RBC % 0.0 Immature Gran # 0.12 Nucleated RBCs # 0.00 Immature Plt Fraction 0.0 INR PT Patient/Control Mix Sodium 142 Potassium 4.1 Chloride 102 Carbon Dioxide 30 Anion Gap 14.1 BUN 20 H Creatinine 0.90 GFR Calculation 94 BUN/Creatinine Ratio 22.00 H Glucose 110 H POC Glucose 147 H Calculated Osmolality 286.1 Calcium 8.2 L Magnesium 2.6 H 12/15/16 12/15/16 12/15/16 16:40 15:45 12:00 WBC RBC Hgb Hct MCV MCH MCHC RDW Plt Count MPV Neut % (Auto) Lymph % (Auto) [place] % (Auto) Eos % (Auto) Baso % (Auto) Neut # (Auto) Lymph # (Auto) [place] # (Auto) Eos # (Auto) Baso # (Auto) Immature Gran % Nucleated RBC % Immature Gran # Nucleated RBCs # Immature Plt Fraction INR PT Patient/Control Mix Sodium Potassium 3.6 Chloride Carbon Dioxide Anion Gap BUN Creatinine GFR Calculation BUN/Creatinine Ratio Glucose POC Glucose 148 H 164 H Calculated Osmolality Calcium Magnesium DS: Provider Date of admission: 12/04/16 10:56 Primary care physician: . No PCP Attending physician on admission: Giuseppe Schneider MD Consults: 12/10/16 13:37 Consult to Occupational Therapy [CONS] Routine Reason for Occupational Therapy: Evaluate and Treat Start Therapy: Tomorrow Consult to Physical Therapy [CONS] Routine Reason for Physical Therapy: Evaluate and Treat Start Therapy: Tomorrow 12/10/16 16:17 Consult to Sleep Center [CONS] Routine Reason for Sleep Center: Other Consult Comment: admit screen post op cabg mvr 12/12/16 10:36 Consult to Cardiac Rehabilitation [CONS] Routine Reason for Cardiac Rehabilitation: Other Consult Comment: Post CABGx1 and MVR; please consult and drug and alcohol counsellor 12/12/16 16:32 Consult to Case Mgmt/Social Srvs [CONS] Routine Reason for Case Mgmt/Social Srvs: Rehab Consult Comment: ACUTE CARE REHAB 12/15/16 10:37 Consult to Physician [CONS] Routine Comment: or Dr. Moffett for [facility] Consulting Provider: Consult to Specialist Group: Pulmonology When should Consulting Provider be notified: In am Person Notified: Kathrin Date Notified: 12/16/16 Time Notified: 08:45 Discharging clinician: Fidel Lees Expected date of discharge: 12/16/16
--- NOTE | 2016-12-16 12:33 | Pulmonology Consult Note ---
Assessment and Plan (1) Bronchospasm Status: Acute Assessment and plan: His bronchospasm may be related to his heart disease. He may have minimal lung disease but I do not think is that bad. We will continue with some bronchodilators for now. Current Visit: No (2) S/P CABG x 1 Status: Acute Assessment and plan: He seems to be doing fairly well post CABG. Current Visit: Yes (3) History of mitral valve replacement with bioprosthetic valve Status: Acute Assessment and plan: The patient has severe mitral insufficiency and now has had a mitral valve replacement. He probably still has some mild volume overload. He will continue with Lasix. Current Visit: Yes (4) Unspecified sleep apnea Status: Acute Assessment and plan: The patient will be evaluated for CPAP as an outpatient. Current Visit: Yes (5) Chronic atrial fibrillation Status: Chronic Assessment and plan: The patient's heart rate is under good control. Current Visit: Yes History of Present Illness Chief complaint: Shortness of breath History of present illness: Mr. Perez is a 71 year old male that is about 4 days postop mitral valve replaced with bypass to his LAD. The patient has presented with shortness of breath and has severe mitral insufficiency. He is a former smoker but has not smoked in years. He says he did not have trouble with wheezing or coughing before surgery. He has done fairly well postop although he has been a little short of breath. He is starting to do a little more activity. He still will cough and wheeze a little. He is probably going to a swing bed. He does have marked cardiomegaly on his x-ray. Home Medications Medication Instructions Recorded Confirmed Type Citalopram Hydrobromide 20 mg PO BID 03/20/15 12/04/16 History [Citalopram HBr] Furosemide Tab [Lasix Tab] 80 mg PO DAILY 03/20/15 12/04/16 History Gabapentin [Neurontin] 1,600 mg PO BID 03/20/15 12/04/16 History Levothyroxine Tab [Synthroid Tab] 25 mcg PO DAILY@0700 03/20/15 12/04/16 History Tamsulosin HCl 0.4 mg PO BID 03/01/16 12/04/16 History Zolpidem Tartrate [Ambien] 10 mg PO BEDTIME 03/01/16 12/04/16 History Acetaminophen Tab [Tylenol Tab] 650 mg PO Q4H PRN tablet 12/16/16 Rx Albuterol Neb [Proventil Neb] 2.5 mg RESP TX RT Q6H 12/16/16 Rx Albuterol/Ipratropium Neb [Duoneb] 3 ml RESP TX RT Q4H PRN 12/16/16 Rx Aspirin EC Tab 325 mg PO Q4H #60 tablet 12/16/16 Rx Budesonide/Formoterol 160-4.5 2 puff INH BID inhaler 12/16/16 Rx [Symbicort 160-4.5] Furosemide Tab [Lasix Tab] 80 mg PO DAILY tablet 12/16/16 Rx HYDROcodone/ACETAMIN 5-325 [[place] 1 tablet PO Q4H PRN tablet 12/16/16 Rx 5-325] Metoprolol Tartrate Tab [Lopressor 25 mg PO BID tablet 12/16/16 Rx Tab] Montelukast Chew Tab [Singulair 5 mg PO BEDTIME tablet 12/16/16 Rx Chew Tab] Pantoprazole Tab [Protonix Tab] 40 mg PO DAILY tablet 12/16/16 Rx Rosuvastatin [Crestor] 20 mg PO BEDTIME tablet 12/16/16 Rx Tamsulosin [Flomax] 0.4 mg PO BEDTIME capsule 12/16/16 Rx Warfarin [Coumadin] 5 mg PO 1800 tablet 12/16/16 Rx Zolpidem [Ambien] 5 mg PO BEDTIME tablet 12/16/16 Rx Allergies Allergy/AdvReac Type Severity Reaction Status Date / Time No Known Allergies Allergy Verified 12/04/16 07:41 - Constitutional Constitutional: Present: fatigue. Absent: chills, fever(s) - EENT Eyes: Absent: loss of vision Ears: Absent: decreased hearing Nose, mouth and throat: Absent: dysphagia, headache(s), sinus pressure - Cardiovascular Cardiovascular: Present: chest pain at rest, dyspnea on exertion, orthopnea. Absent: edema - Respiratory Respiratory: Present: cough, wheezing - Gastrointestinal Gastrointestinal: Absent: abdominal pain, dysphagia, nausea, vomiting - Genitourinary Genitourinary: Absent: difficulty urinating, hematuria - Musculoskeletal Musculoskeletal: Absent: arthralgias - Neurological Neurological: Absent: abnormal speech, focal weakness Exam (Pulmonay) H&P - Constitutional Vitals: Period Temp Pulse Resp BP Sys/Aragon Pulse Ox Last 24 Hr 98.2 F-99.7 F 55-99 16-22 110-137/56-81 92-99 General appearance: normal weight, mild distress (He is moving around okay and is has minimal respiratory distress now. He still has considerable chest wall soreness.) - Head Head exam: Present: normal inspection, normocephalic - Eye Eye exam: Present: EOMI. Absent: scleral icterus Pupils: Present: JEZ - ENT ENT exam: Present: normal exam - Neck Neck exam: Absent: lymphadenopathy, thyromegaly - Respiratory Respiratory exam: Present: rales, wheezes, other (He has minimal crackles in the bases and some faint wheezing.) - Cardiovascular Cardiovascular exam: Present: irregular rhythm. Absent: gallop, systolic murmur - GI/Abdominal GI/Abdominal exam: Present: normal bowel sounds, soft. Absent: organomegaly, tenderness - Extremities Exam Extremities exam: Absent: calf tenderness, edema - Neurological Exam Neurological exam: Present: alert, oriented X3 - Psychiatric Psychiatric exam: Present: normal affect - Skin Skin exam: Present: warm, dry Medical,Surgical,& Family Hx - Medical History Cardio: History of: Cardiac Dysrhythmia (A.fib), CHF, CAD, Hypertension, Valvular Heart Disease Neurology: No history of: Seizures Endocrine: History of: Dyslipidemia, Thyroid Disorder Respiratory: History of: Pulmonary Embolism Musculoskeletal: History of: Back/Neck Problems (4 back surgeries) - Surgical History Cardiac Surgeries: Sugical HX of: Cardiac Catheterization HEENT Surgeries: Surgical HX of: Eye Surgery (Bilateral cataract) Abdominal Surgeries: Surgical HX of: Hernia Repair Orthopedic Surgeries: Surgical HX of;: Spinal Surgery (Back) - Family History Family History: Reports;: Family Cancer (brother), Family Heart Disease (father , mother), Family Hypertension (father) Denies;: Family Diabetes, Family Stroke - Social History Smoking Status: Former smoker Frequency of Alcohol Use: Occasionally Type of Drug Use: None Results - Labs CBC & BMP: 12/16/16 04:35 12/16/16 04:35 - Diagnostic Findings Procedure: Chest x-ray: image reviewed by me, report reviewed by me (Chest x- ray shows marked cardiomegaly with mild fluid in the bases.) Quality Measures - VTE Contraindication to Pharmacological VTE Prophylaxis: Active Bleeding Specialty Discharge - Follow Up or Referrals Follow up with: Fidel Lees [Physician] - 01/06/17 Giuseppe Schneider MD [Physician] - 01/01/17 9:00 am
[2016-12-16] MEDS ORDERED: WARFARIN 5 MG TABLET PO SCH (18:00)
[2016-12-16] MEDS ORDERED: WARFARIN 3 MG TABLET PO SCH (18:00)
[2016-12-16] MEDS: ZOLPIDEM 5 MG TABLET PO SCH ×2 (18:50→20:42)
[2016-12-16] MEDS: TAMSULOSIN 0.4 MG CAPSULE PO SCH (20:42)
[2016-12-16] MEDS: ROSUVASTATIN 20 MG TABLET PO SCH (20:42)
[2016-12-16] MEDS: MONTELUKAST CHEW 5 MG TABLET PO SCH (20:42)
[2016-12-16] MEDS ORDERED: MUPIROCIN 2% OINT 22 GM TUBE TOP SCH (21:00)
[2016-12-17] MEDS: INSULIN REGULAR 100 UNIT/ML SUBCUT SCH ×4 (00:34→12:22)
[2016-12-17] MEDS: ALBUTEROL 2.5 MG/3 ML NEB RESP TX SCH ×3 (01:55→14:10)
[2016-12-17 06:21] LABS: Basophils % 0.2 % (0.0-0.8); Eosinophils % 0.3 % (0.00-10.9); Hematocrit 32.5 VOL% (42.0-52.0); Immature Granulocytes % 1.6 %; Immature Granulocytes Absolute 0.18 #; Lymphocytes # 0.6 10*3/uL (1.4-4.0); Lymphocytes % 5.4 % (21.2-54.2); Mean Corpuscular HGB Conc 33.8 GM/DL (32-36); Mean Corpuscular Hemoglobin 32 PG (27-34); Mean Corpuscular Volume 94.8 FL (87-102); Mean Platelet Volume 10.4 FL (9.6-12.0); Monocytes # 1.2 10*3/uL (0.11-0.8); Monocytes % 10.4 % (1.7-12.7); Neutrophils # 9.4 10*3/uL (1.4-7.4); Neutrophils % 82.1 % (38.7-73.9); Platelet Count 201 T/CUMM (130-400); Red Blood Count 3.43 MC/CUMM (3.8-5.5); Red Cell Distribution Width 14.6 % (9.3-17.3); White Blood Count 11.4 T/CUMM (4-12)
[2016-12-17 06:25] LABS: INR 1.3; PT Patient Result 13.7 SECS
[2016-12-17 06:48] LABS: Calcium 8.5 MG/DL (8.5-10.1); Magnesium 2.6 MG/DL (1.8-2.4); Osmolality,Calculated 282.4 MOS/KG (273-304); Potassium 3.5 MMOL/L (3.5-5.1)
--- NOTE | 2016-12-17 08:36 | Pulmonology Progress Note ---
Pulmonary - PN: Subj Interval history: The patient is a 71-year-old white man that is postop mitral valve replacement and bypass to his LAD. He could possibly have some mild COPD. He looked like he probably had some heart failure and is diuresed very well. His weight is down now when he says he is feeling a little better. He feels like his breathing is getting better each day. He is sitting up in a chair and is feeling a little stronger. Exam (Progress Note) - Constitutional Vitals: Period Temp Pulse Resp BP Sys/Aragon Pulse Ox Last 24 Hr 97 F-99.0 F 50-118 16-25 99-123/49-82 90-99 Exam: General appearance: normal weight, mild distress (He is sitting up and looks reasonably comfortable at present.) - Head Head exam: Present: normal inspection, normocephalic - Eye Eye exam: Present: EOMI. Absent: scleral icterus Pupils: Present: JEZ - ENT ENT exam: Present: normal exam - Neck Neck exam: Absent: lymphadenopathy, thyromegaly - Respiratory Respiratory exam: Present: He has good breath sounds bilaterally with some slight crackles in the bases. It is hard to detect any effusions. He is not wheezing. - Cardiovascular Cardiovascular exam: Present: irregular rhythm. Absent: gallop, systolic murmur - GI/Abdominal GI/Abdominal exam: Present: normal bowel sounds, soft. Absent: organomegaly, tenderness - Extremities Exam Extremities exam: Absent: calf tenderness, edema, he has no signs of phlebitis. - Neurological Exam Neurological exam: Present: alert, oriented X3, he is moving his extremities okay. - Psychiatric Psychiatric exam: Present: normal affect - Skin Skin exam: Present: warm, dry Results - Labs CBC & BMP: 12/17/16 05:55 12/17/16 05:55 Assessment and Plan (1) Bronchospasm Status: Acute Assessment and plan: His bronchospasm may be related to his heart disease. He may have minimal lung disease but I do not think is that bad. He is not wheezing now any sounds better. He is tolerating Symbicort fairly well. Current Visit: No (2) S/P CABG x 1 Status: Acute Assessment and plan: He seems to be doing fairly well post CABG. Current Visit: Yes (3) History of mitral valve replacement with bioprosthetic valve Status: Acute Assessment and plan: The patient has severe mitral insufficiency and now has had a mitral valve replacement. He probably still has some mild volume overload. He diuresed well yesterday and his weight is down. He is breathing comfortably at present. Current Visit: Yes (4) Unspecified sleep apnea Status: Acute Assessment and plan: The patient will be evaluated for CPAP as an outpatient. Current Visit: Yes (5) Chronic atrial fibrillation Status: Chronic Assessment and plan: The patient's heart rate is under good control. Current Visit: Yes Specialty Discharge - Follow Up or Referrals Follow up with: Fidel Lees [Physician] - 01/06/17 Giuseppe Schneider MD [Physician] - 01/01/17 9:00 am
[2016-12-17] MEDS: ASPIRIN CHEW 81 MG TABLET PO SCH (10:31)
[2016-12-17] MEDS: PANTOPRAZOLE 40 MG TABLET PO SCH (10:32)
[2016-12-17] MEDS: FUROSEMIDE 80 MG TABLET PO SCH (10:33)
[2016-12-17] MEDS: METOPROLOL TARTRATE 25 MG TABLET PO SCH (10:33)
[2016-12-17] MEDS: CHLORHEXIDINE 0.12% ORAL RINSE 60 ML BOTTLE SWISH/SPIT SCH (10:41)
[2016-12-17] MEDS: BUDESONIDE/FORMOTEROL 160-4.5 INHALER 6 GM INH SCH (10:42)
[2016-12-17] MEDS ORDERED: FUROSEMIDE 40 MG/4 ML VIAL IV ONE (10:59)
[2016-12-17] MEDS: ALBUTEROL/IPRATROPIUM 3 ML NEB RESP TX PRN (11:00)
[2016-12-17] MEDS ORDERED: FUROSEMIDE 40 MG TABLET PO ONE (12:09)
[2016-12-17 12:32] VITALS: BP 130/70
--- NOTE | 2017-01-02 20:16 | Order Completion Report ---
See report scanned to EMR
== END 2016-12-17 15:15 | disposition swing bed (61) | DRG 217 ==
LOC: N.SDSINP 06:55 → N.CL 06:55 → N.TELES 10:56 → N.CVR 12-10 09:34 → N.SDSINP 12-10 09:34 → N.ICU 12-11 12:02 → N.TELES 12-12 17:22
PROVIDERS: ADMIT Internal Medicine Cardiovascular Disease; ATTEND Internal Medicine Cardiovascular Disease
PROC: CABGMVR (ICD-10-PCS; 2016-12-10 06:42)

== ENCOUNTER 2016-12-19 16:40 | Inpatient (IN) ==
[2016-12-19] MEDS ORDERED: ONDANSETRON 4 MG/2 ML VIAL ONE (17:03)
[2016-12-19] MEDS ORDERED: MORPHINE 2 MG/1 ML SYRINGE ONE (17:03)
[2016-12-19] MEDS ORDERED: MORPHINE 2 MG/1 ML SYRINGE IV STA ×2 (17:04→23:36)
[2016-12-19] MEDS ORDERED: ONDANSETRON 4 MG/2 ML VIAL IV STA (17:04)
[2016-12-19 17:06] LABS: Basophils % 0.1 % (0.0-0.8); Eosinophils # 0.1 10*3/uL (0.0-0.87); Eosinophils % 0.8 % (0.00-10.9); Hematocrit 29.6 VOL% (42.0-52.0); Immature Granulocytes % 1.8 %; Immature Granulocytes Absolute 0.19 #; Lymphocytes # 0.7 10*3/uL (1.4-4.0); Lymphocytes % 6.4 % (21.2-54.2); Mean Corpuscular HGB Conc 33.8 GM/DL (32-36); Mean Corpuscular Hemoglobin 32 PG (27-34); Mean Corpuscular Volume 95.5 FL (87-102); Mean Platelet Volume 9.8 FL (9.6-12.0); Monocytes # 1.2 10*3/uL (0.11-0.8); Monocytes % 11.2 % (1.7-12.7); Neutrophils # 8.5 10*3/uL (1.4-7.4); Neutrophils % 79.7 % (38.7-73.9); Platelet Count 290 T/CUMM (130-400); Red Cell Distribution Width 14.6 % (9.3-17.3); White Blood Count 10.6 T/CUMM (4-12)
[2016-12-19 17:27] LABS: Albumin 2.7 G/DL (3.4-5.0); Bilirubin,Total 1.7 MG/DL (0.2-1.0); Calcium 7.9 MG/DL (8.5-10.1); Potassium 3.4 MMOL/L (3.5-5.1); Total Protein 6.1 G/DL (6.4-8.3)
[2016-12-19] MEDS ORDERED: fentaNYL 100 MCG/2 ML VIAL ONE ×2 (17:41→21:45)
[2016-12-19] MEDS ORDERED: MIDAZOLAM 2 MG/2 ML VIAL ONE ×3 (17:41→21:45)
[2016-12-19] MEDS ORDERED: MIDAZOLAM 2 MG/2 ML VIAL IV STA (21:44)
[2016-12-19] MEDS ORDERED: fentaNYL 100 MCG/2 ML VIAL IV STA (21:44)
[2016-12-19] MEDS ORDERED: ONDANSETRON 4 MG/2 ML VIAL IV PRN (22:31)
[2016-12-19] MEDS ORDERED: ALBUTEROL/IPRATROPIUM 3 ML NEB RESP TX STA (23:43)
[2016-12-19 23:58] LABS: Basophils % 0.1 % (0.0-0.8); Eosinophils # 0.1 10*3/uL (0.0-0.87); Eosinophils % 0.8 % (0.00-10.9); Hematocrit 29.5 VOL% (42.0-52.0); Hemoglobin 9.8 GM/DL (14.0-18.0); Immature Granulocytes % 1.9 %; Immature Granulocytes Absolute 0.17 #; Lymphocytes # 0.5 10*3/uL (1.4-4.0); Lymphocytes % 4.9 % (21.2-54.2); Mean Corpuscular HGB Conc 33.2 GM/DL (32-36); Mean Corpuscular Hemoglobin 32 PG (27-34); Mean Corpuscular Volume 95.8 FL (87-102); Mean Platelet Volume 9.8 FL (9.6-12.0); Monocytes # 0.9 10*3/uL (0.11-0.8); Monocytes % 10.1 % (1.7-12.7); Neutrophils # 7.5 10*3/uL (1.4-7.4); Neutrophils % 82.2 % (38.7-73.9); Platelet Count 296 T/CUMM (130-400); Red Blood Count 3.08 MC/CUMM (3.8-5.5); Red Cell Distribution Width 14.6 % (9.3-17.3); White Blood Count 9.1 T/CUMM (4-12)
[2016-12-20 00:25] LABS: Lymphocytes 3 % (20-55); Segmented Neutrophils 91 % (50-85)
[2016-12-20 00:26] LABS: Ovalocytes 1+; Platelet Estimate Normal; Polychromasia Few
[2016-12-20 00:27] LABS: Total Cells Counted 100
[2016-12-20] MEDS: ACETAMINOPHEN 325 MG TABLET PO PRN ×2 (01:49→08:07)
[2016-12-20 02:49] LABS: Basophils % 0.1 % (0.0-0.8); Eosinophils % 0.3 % (0.00-10.9); Hematocrit 28.3 VOL% (42.0-52.0); Hemoglobin 9.4 GM/DL (14.0-18.0); Immature Granulocytes % 1.4 %; Immature Granulocytes Absolute 0.13 #; Lymphocytes # 0.3 10*3/uL (1.4-4.0); Lymphocytes % 3.1 % (21.2-54.2); Mean Corpuscular HGB Conc 33.2 GM/DL (32-36); Mean Corpuscular Hemoglobin 32 PG (27-34); Mean Corpuscular Volume 95.3 FL (87-102); Mean Platelet Volume 9.9 FL (9.6-12.0); Monocytes # 0.8 10*3/uL (0.11-0.8); Neutrophils # 7.8 10*3/uL (1.4-7.4); Neutrophils % 86.1 % (38.7-73.9); Platelet Count 288 T/CUMM (130-400); Red Blood Count 2.97 MC/CUMM (3.8-5.5); Red Cell Distribution Width 14.6 % (9.3-17.3); White Blood Count 9.1 T/CUMM (4-12)
[2016-12-20 03:24] LABS: Calcium 7.6 MG/DL (8.5-10.1); Magnesium 2.4 MG/DL (1.8-2.4); Osmolality,Calculated 279.5 MOS/KG (273-304); Potassium 3.6 MMOL/L (3.5-5.1)
[2016-12-20 05:37] LABS: Eosinophils 1 % (0-10); Lymphocytes 3 % (20-55); Segmented Neutrophils 93 % (50-85); Total Cells Counted 100
[2016-12-20 05:38] LABS: Ovalocytes 1+; Platelet Estimate Normal; Polychromasia Few
[2016-12-20] MEDS ORDERED: METOPROLOL TARTRATE 5 MG/5 ML VIAL IV ONE (07:36)
[2016-12-20] MEDS: PANTOPRAZOLE 40 MG TABLET PO SCH (08:07)
[2016-12-20] MEDS ORDERED: INFLUENZA VIRUS VACCINE 0.5 ML SYRINGE IM ONE (09:00)
[2016-12-20] MEDS ORDERED: FUROSEMIDE 40 MG/4 ML VIAL IV ONE (09:15)
[2016-12-20] MEDS ORDERED: ACETAMINOPHEN 325 MG TABLET PO PRN (13:47)
[2016-12-20] MEDS ORDERED: ALBUTEROL/IPRATROPIUM 3 ML NEB RESP TX PRN (13:47)
[2016-12-20] MEDS ORDERED: PANTOPRAZOLE 40 MG TABLET PO SCH (13:47)
[2016-12-20] MEDS: TAMSULOSIN 0.4 MG CAPSULE PO SCH ×2 (14:23→20:54)
[2016-12-20] MEDS: GABAPENTIN 400 MG CAPSULE PO SCH ×2 (14:23→20:54)
[2016-12-20] MEDS: FUROSEMIDE 80 MG TABLET PO SCH (14:23)
[2016-12-20] MEDS: ASPIRIN EC 325 MG TABLET PO SCH (14:23)
[2016-12-20] MEDS: METOPROLOL TARTRATE 25 MG TABLET PO SCH ×2 (14:23→20:54)
[2016-12-20] MEDS: CITALOPRAM 20 MG TABLET PO SCH ×2 (14:23→20:54)
[2016-12-20] MEDS: ALBUTEROL 2.5 MG/3 ML NEB RESP TX SCH ×2 (14:28→19:35)
[2016-12-20] MEDS: BUDESONIDE/FORMOTEROL 160-4.5 INHALER 6 GM INH SCH ×2 (14:33→20:54)
[2016-12-20] MEDS: MONTELUKAST CHEW 5 MG TABLET PO SCH (20:54)
[2016-12-20] MEDS: ROSUVASTATIN 20 MG TABLET PO SCH (20:54)
[2016-12-21] MEDS: ALBUTEROL 2.5 MG/3 ML NEB RESP TX SCH ×4 (00:32→20:05)
[2016-12-21 04:41] LABS: Basophils % 0.2 % (0.0-0.8); Eosinophils # 0.1 10*3/uL (0.0-0.87); Eosinophils % 0.5 % (0.00-10.9); Hematocrit 27.7 VOL% (42.0-52.0); Hemoglobin 9.3 GM/DL (14.0-18.0); Immature Granulocytes % 1.5 %; Immature Granulocytes Absolute 0.14 #; Lymphocytes # 0.6 10*3/uL (1.4-4.0); Mean Corpuscular HGB Conc 33.6 GM/DL (32-36); Mean Corpuscular Hemoglobin 32 PG (27-34); Mean Corpuscular Volume 94.5 FL (87-102); Mean Platelet Volume 9.7 FL (9.6-12.0); Neutrophils # 7.9 10*3/uL (1.4-7.4); Neutrophils % 81.8 % (38.7-73.9); Platelet Count 312 T/CUMM (130-400); Red Blood Count 2.93 MC/CUMM (3.8-5.5); Red Cell Distribution Width 14.6 % (9.3-17.3); White Blood Count 9.6 T/CUMM (4-12)
[2016-12-21] MEDS: LEVOTHYROXINE 25 MCG TABLET PO SCH (06:31)
[2016-12-21] MEDS: FUROSEMIDE 80 MG TABLET PO SCH (09:14)
[2016-12-21] MEDS: PANTOPRAZOLE 40 MG TABLET PO SCH (09:14)
[2016-12-21] MEDS: GABAPENTIN 400 MG CAPSULE PO SCH ×2 (09:14→21:27)
[2016-12-21] MEDS: METOPROLOL TARTRATE 25 MG TABLET PO SCH ×2 (09:14→21:27)
[2016-12-21] MEDS: ASPIRIN EC 325 MG TABLET PO SCH (09:14)
[2016-12-21] MEDS: TAMSULOSIN 0.4 MG CAPSULE PO SCH ×2 (09:15→21:26)
[2016-12-21] MEDS: CITALOPRAM 20 MG TABLET PO SCH ×2 (09:16→21:27)
[2016-12-21] MEDS: BUDESONIDE/FORMOTEROL 160-4.5 INHALER 6 GM INH SCH ×2 (09:17→21:27)
[2016-12-21] MEDS ORDERED: SODIUM CHLORIDE 0.9% 250 ML IV PRN (11:53)
[2016-12-21] MEDS ORDERED: FUROSEMIDE 40 MG/4 ML VIAL IV ONE (11:54)
[2016-12-21 12:10] LABS: Calcium 7.6 MG/DL (8.5-10.1); Magnesium 2.6 MG/DL (1.8-2.4); Osmolality,Calculated 276.8 MOS/KG (273-304); Potassium 3.4 MMOL/L (3.5-5.1)
[2016-12-21] MEDS: POTASSIUM CHLORIDE 20 MEQ TABLET PO SCH ×2 (14:48→21:26)
[2016-12-21] MEDS: ROSUVASTATIN 20 MG TABLET PO SCH (21:26)
[2016-12-21] MEDS: MONTELUKAST CHEW 5 MG TABLET PO SCH (21:27)
[2016-12-22] MEDS: ALBUTEROL 2.5 MG/3 ML NEB RESP TX SCH ×4 (01:30→19:28)
[2016-12-22 05:02] LABS: Basophils % 0.1 % (0.0-0.8); Eosinophils # 0.1 10*3/uL (0.0-0.87); Eosinophils % 0.8 % (0.00-10.9); Hematocrit 31.6 VOL% (42.0-52.0); Hemoglobin 10.7 GM/DL (14.0-18.0); Immature Granulocytes % 1.4 %; Immature Granulocytes Absolute 0.15 #; Lymphocytes # 0.7 10*3/uL (1.4-4.0); Lymphocytes % 6.7 % (21.2-54.2); Mean Corpuscular HGB Conc 33.9 GM/DL (32-36); Mean Corpuscular Hemoglobin 32 PG (27-34); Mean Corpuscular Volume 93.8 FL (87-102); Mean Platelet Volume 9.7 FL (9.6-12.0); Monocytes % 9.5 % (1.7-12.7); Neutrophils # 8.5 10*3/uL (1.4-7.4); Neutrophils % 81.5 % (38.7-73.9); Platelet Count 335 T/CUMM (130-400); Red Blood Count 3.37 MC/CUMM (3.8-5.5); Red Cell Distribution Width 15.7 % (9.3-17.3); White Blood Count 10.4 T/CUMM (4-12)
[2016-12-22 05:28] LABS: Calcium 7.9 MG/DL (8.5-10.1); Magnesium 2.5 MG/DL (1.8-2.4); Osmolality,Calculated 283.1 MOS/KG (273-304); Potassium 4.6 MMOL/L (3.5-5.1)
[2016-12-22] MEDS: ACETAMINOPHEN 325 MG TABLET PO PRN (05:53)
[2016-12-22] MEDS: LEVOTHYROXINE 25 MCG TABLET PO SCH (06:00)
[2016-12-22] MEDS: GABAPENTIN 400 MG CAPSULE PO SCH ×2 (08:28→20:51)
[2016-12-22] MEDS: CITALOPRAM 20 MG TABLET PO SCH ×2 (08:28→20:51)
[2016-12-22] MEDS: PANTOPRAZOLE 40 MG TABLET PO SCH (08:28)
[2016-12-22] MEDS: POTASSIUM CHLORIDE 20 MEQ TABLET PO SCH ×2 (08:28→20:51)
[2016-12-22] MEDS: TAMSULOSIN 0.4 MG CAPSULE PO SCH ×2 (08:28→20:51)
[2016-12-22] MEDS: FUROSEMIDE 80 MG TABLET PO SCH (08:29)
[2016-12-22] MEDS: METOPROLOL TARTRATE 25 MG TABLET PO SCH ×2 (08:29→20:51)
[2016-12-22] MEDS: ASPIRIN EC 325 MG TABLET PO SCH (08:29)
[2016-12-22] MEDS: BISACODYL 5 MG TABLET PO SCH (08:29)
[2016-12-22] MEDS: BUDESONIDE/FORMOTEROL 160-4.5 INHALER 6 GM INH SCH ×2 (12:00→20:55)
[2016-12-22] MEDS ORDERED: SODIUM PHOSPHATE ENEMA 133 ML BOTTLE RECTAL PRN (15:42)
[2016-12-22 16:51] LABS: Apearance,Urine CLEAR (Clear); Bilirubin,Urine Negative (Negative); Blood, Urine Negative (Negative); Glucose,Urine (UA) Negative (Negative); Hyaline Casts,Urine 9 /LPF (0-3); Ketones,Urine Negative (Negative); Mucus,Urine Occasional /LPF (Occasional); Nitrite,Urine Negative (Negative); Protein,Urine Negative; RBC,Urine <1 /HPF (0-4); Squamous Epithelial Cell,Urine Occasional /HPF (0-10); Urine Color Dark yellow (Yellow); Urine Specific Gravity 1.012 (1.001-1.035); WBC,Urine 2 /HPF (0-6)
[2016-12-22] MEDS: MAGNESIUM HYDROXIDE SUSP 30 ML UDCUP PO PRN (17:12)
[2016-12-22] MEDS: MONTELUKAST CHEW 5 MG TABLET PO SCH (20:50)
[2016-12-22] MEDS: ROSUVASTATIN 20 MG TABLET PO SCH (20:50)
[2016-12-23] MEDS: ALBUTEROL 2.5 MG/3 ML NEB RESP TX SCH ×4 (01:03→19:34)
[2016-12-23] MEDS: ACETAMINOPHEN 325 MG TABLET PO PRN ×3 (02:10→21:30)
[2016-12-23 05:41] LABS: Basophils % 0.2 % (0.0-0.8); Eosinophils # 0.1 10*3/uL (0.0-0.87); Eosinophils % 0.9 % (0.00-10.9); Hematocrit 31.2 VOL% (42.0-52.0); Hemoglobin 10.3 GM/DL (14.0-18.0); Immature Granulocytes Absolute 0.12 #; Lymphocytes # 0.6 10*3/uL (1.4-4.0); Lymphocytes % 5.2 % (21.2-54.2); Mean Corpuscular Hemoglobin 32 PG (27-34); Mean Corpuscular Volume 96.3 FL (87-102); Mean Platelet Volume 9.7 FL (9.6-12.0); Monocytes % 8.6 % (1.7-12.7); Neutrophils # 9.8 10*3/uL (1.4-7.4); Neutrophils % 84.1 % (38.7-73.9); Platelet Count 348 T/CUMM (130-400); Red Blood Count 3.24 MC/CUMM (3.8-5.5); Red Cell Distribution Width 15.6 % (9.3-17.3); White Blood Count 11.6 T/CUMM (4-12)
[2016-12-23] MEDS: LEVOTHYROXINE 25 MCG TABLET PO SCH (06:05)
[2016-12-23 06:11] LABS: Calcium 8.1 MG/DL (8.5-10.1); Magnesium 2.8 MG/DL (1.8-2.4)
[2016-12-23 06:12] LABS: Osmolality,Calculated 281.3 MOS/KG (273-304); Potassium 5.3 MMOL/L (3.5-5.1)
[2016-12-23] MEDS: GABAPENTIN 400 MG CAPSULE PO SCH ×2 (09:53→21:30)
[2016-12-23] MEDS: ASPIRIN EC 325 MG TABLET PO SCH (09:54)
[2016-12-23] MEDS: PANTOPRAZOLE 40 MG TABLET PO SCH (09:54)
[2016-12-23] MEDS: BUDESONIDE/FORMOTEROL 160-4.5 INHALER 6 GM INH SCH ×2 (09:54→21:33)
[2016-12-23] MEDS: METOPROLOL TARTRATE 25 MG TABLET PO SCH ×2 (09:54→21:31)
[2016-12-23] MEDS: FUROSEMIDE 80 MG TABLET PO SCH (09:54)
[2016-12-23] MEDS: BISACODYL 5 MG TABLET PO SCH (09:54)
[2016-12-23] MEDS: CITALOPRAM 20 MG TABLET PO SCH ×2 (09:54→21:31)
[2016-12-23] MEDS: TAMSULOSIN 0.4 MG CAPSULE PO SCH ×2 (09:54→21:31)
[2016-12-23] MEDS: ZOLPIDEM 5 MG TABLET PO SCH ×3 (18:37→21:33)
[2016-12-23] MEDS: MONTELUKAST CHEW 5 MG TABLET PO SCH (21:31)
[2016-12-23] MEDS: ROSUVASTATIN 20 MG TABLET PO SCH (21:31)
[2016-12-23] MEDS ORDERED: ALBUTEROL 2.5 MG/3 ML NEB RESP TX ONE (23:36)
[2016-12-24] MEDS: ALBUTEROL 2.5 MG/3 ML NEB RESP TX SCH ×5 (00:41→23:52)
[2016-12-24 03:50] LABS: Basophils % 0.2 % (0.0-0.8); Eosinophils # 0.1 10*3/uL (0.0-0.87); Eosinophils % 1.4 % (0.00-10.9); Hemoglobin 10.2 GM/DL (14.0-18.0); Immature Granulocytes % 1.2 %; Immature Granulocytes Absolute 0.12 #; Lymphocytes # 0.8 10*3/uL (1.4-4.0); Lymphocytes % 7.6 % (21.2-54.2); Mean Corpuscular HGB Conc 32.9 GM/DL (32-36); Mean Corpuscular Hemoglobin 31 PG (27-34); Mean Corpuscular Volume 95.1 FL (87-102); Mean Platelet Volume 9.3 FL (9.6-12.0); Monocytes # 0.7 10*3/uL (0.11-0.8); Monocytes % 7.1 % (1.7-12.7); Neutrophils # 8.4 10*3/uL (1.4-7.4); Neutrophils % 82.5 % (38.7-73.9); Platelet Count 327 T/CUMM (130-400); Red Blood Count 3.26 MC/CUMM (3.8-5.5); Red Cell Distribution Width 15.3 % (9.3-17.3); White Blood Count 10.2 T/CUMM (4-12)
[2016-12-24 04:19] LABS: Calcium 8.1 MG/DL (8.5-10.1); Magnesium 2.7 MG/DL (1.8-2.4); Osmolality,Calculated 280.4 MOS/KG (273-304); Potassium 4.4 MMOL/L (3.5-5.1)
[2016-12-24] MEDS: LEVOTHYROXINE 25 MCG TABLET PO SCH (07:00)
[2016-12-24] MEDS: METOPROLOL TARTRATE 25 MG TABLET PO SCH ×4 (07:12→21:07)
[2016-12-24] MEDS: GABAPENTIN 400 MG CAPSULE PO SCH ×2 (09:11→21:06)
[2016-12-24] MEDS: TAMSULOSIN 0.4 MG CAPSULE PO SCH ×2 (09:11→21:07)
[2016-12-24] MEDS: CITALOPRAM 20 MG TABLET PO SCH ×2 (09:11→21:07)
[2016-12-24] MEDS: BISACODYL 5 MG TABLET PO SCH (09:12)
[2016-12-24] MEDS: BUDESONIDE/FORMOTEROL 160-4.5 INHALER 6 GM INH SCH ×2 (09:12→21:07)
[2016-12-24] MEDS: ASPIRIN EC 325 MG TABLET PO SCH (09:12)
[2016-12-24] MEDS: PANTOPRAZOLE 40 MG TABLET PO SCH (09:12)
[2016-12-24] MEDS: FUROSEMIDE 80 MG TABLET PO SCH (09:12)
[2016-12-24] MEDS: DILTIAZEM INJ 100 MG in SODIUM CHLORIDE 0.9% 100 ML IV SCH (13:16)
[2016-12-24] MEDS: COLLAGENASE OINT 30 GM TUBE TOP SCH (17:00)
[2016-12-24] MEDS: ROSUVASTATIN 20 MG TABLET PO SCH (21:07)
[2016-12-24] MEDS: MONTELUKAST CHEW 5 MG TABLET PO SCH (21:07)
[2016-12-24] MEDS: ZOLPIDEM 5 MG TABLET PO SCH (22:15)
[2016-12-25] MEDS: LEVOTHYROXINE 25 MCG TABLET PO SCH (06:01)
[2016-12-25] MEDS: ALBUTEROL 2.5 MG/3 ML NEB RESP TX SCH ×3 (08:39→19:24)
[2016-12-25] MEDS: ASPIRIN EC 325 MG TABLET PO SCH (09:18)
[2016-12-25] MEDS: DILTIAZEM CD 180 MG CAPSULE PO SCH (09:18)
[2016-12-25] MEDS: METOPROLOL TARTRATE 25 MG TABLET PO SCH ×2 (09:19→21:02)
[2016-12-25] MEDS: CITALOPRAM 20 MG TABLET PO SCH ×2 (09:19→21:02)
[2016-12-25] MEDS: FUROSEMIDE 80 MG TABLET PO SCH (09:19)
[2016-12-25] MEDS: BISACODYL 5 MG TABLET PO SCH (09:19)
[2016-12-25] MEDS: TAMSULOSIN 0.4 MG CAPSULE PO SCH ×2 (09:19→21:03)
[2016-12-25] MEDS: GABAPENTIN 400 MG CAPSULE PO SCH ×2 (09:20→21:03)
[2016-12-25] MEDS: PANTOPRAZOLE 40 MG TABLET PO SCH (09:20)
[2016-12-25] MEDS: COLLAGENASE OINT 30 GM TUBE TOP SCH (09:27)
[2016-12-25] MEDS: BUDESONIDE/FORMOTEROL 160-4.5 INHALER 6 GM INH SCH ×2 (09:28→21:03)
[2016-12-25] MEDS: DILTIAZEM INJ 100 MG in SODIUM CHLORIDE 0.9% 100 ML IV SCH ×2 (09:30→14:31)
[2016-12-25] MEDS: MAGNESIUM HYDROXIDE SUSP 30 ML UDCUP PO PRN (15:11)
[2016-12-25] MEDS: SULFAMETHOX/TRIMETHOPRIM 800-160 MG TABLET PO SCH ×2 (15:11→21:03)
[2016-12-25] MEDS: ROSUVASTATIN 20 MG TABLET PO SCH (21:02)
[2016-12-25] MEDS: ZOLPIDEM 5 MG TABLET PO SCH (21:02)
[2016-12-25] MEDS: MONTELUKAST CHEW 5 MG TABLET PO SCH (21:03)
[2016-12-25] MEDS: DOCUSATE SODIUM 100 MG CAPSULE PO SCH (21:03)
[2016-12-25] MEDS: traMADol 50 MG TABLET PO PRN (23:13)
[2016-12-26] MEDS: ALBUTEROL 2.5 MG/3 ML NEB RESP TX SCH ×4 (00:02→19:26)
[2016-12-26] MEDS: traMADol 50 MG TABLET PO PRN ×2 (03:55→23:29)
[2016-12-26] MEDS: MAGNESIUM HYDROXIDE SUSP 30 ML UDCUP PO PRN ×2 (05:59→20:12)
[2016-12-26] MEDS: LEVOTHYROXINE 25 MCG TABLET PO SCH (06:00)
[2016-12-26] MEDS ORDERED: FUROSEMIDE 40 MG/4 ML VIAL IV ONE (07:55)
[2016-12-26 08:31] LABS: Basophils % 0.2 % (0.0-0.8); Eosinophils # 0.1 10*3/uL (0.0-0.87); Eosinophils % 0.8 % (0.00-10.9); Hematocrit 30.2 VOL% (42.0-52.0); Immature Granulocytes % 1.8 %; Immature Granulocytes Absolute 0.17 #; Lymphocytes # 0.6 10*3/uL (1.4-4.0); Lymphocytes % 6.3 % (21.2-54.2); Mean Corpuscular HGB Conc 33.1 GM/DL (32-36); Mean Corpuscular Hemoglobin 32 PG (27-34); Mean Corpuscular Volume 95.3 FL (87-102); Mean Platelet Volume 9.4 FL (9.6-12.0); Monocytes # 1.2 10*3/uL (0.11-0.8); Neutrophils # 7.6 10*3/uL (1.4-7.4); Neutrophils % 78.9 % (38.7-73.9); Platelet Count 325 T/CUMM (130-400); Red Blood Count 3.17 MC/CUMM (3.8-5.5); Red Cell Distribution Width 15.2 % (9.3-17.3); White Blood Count 9.6 T/CUMM (4-12)
[2016-12-26] MEDS: SULFAMETHOX/TRIMETHOPRIM 800-160 MG TABLET PO SCH ×2 (08:32→20:11)
[2016-12-26] MEDS: ASPIRIN EC 325 MG TABLET PO SCH (08:32)
[2016-12-26] MEDS: DILTIAZEM CD 180 MG CAPSULE PO SCH (08:32)
[2016-12-26] MEDS: DOCUSATE SODIUM 100 MG CAPSULE PO SCH ×2 (08:33→20:10)
[2016-12-26] MEDS: METOPROLOL TARTRATE 25 MG TABLET PO SCH ×2 (08:33→20:10)
[2016-12-26] MEDS: CITALOPRAM 20 MG TABLET PO SCH ×2 (08:33→20:10)
[2016-12-26] MEDS: BISACODYL 5 MG TABLET PO SCH (08:33)
[2016-12-26] MEDS: TAMSULOSIN 0.4 MG CAPSULE PO SCH ×2 (08:33→20:10)
[2016-12-26] MEDS: GABAPENTIN 400 MG CAPSULE PO SCH ×2 (08:33→20:11)
[2016-12-26] MEDS: PANTOPRAZOLE 40 MG TABLET PO SCH (08:34)
[2016-12-26] MEDS: COLLAGENASE OINT 30 GM TUBE TOP SCH (08:34)
[2016-12-26] MEDS: BUDESONIDE/FORMOTEROL 160-4.5 INHALER 6 GM INH SCH ×2 (08:34→20:12)
[2016-12-26] MEDS: FUROSEMIDE 80 MG TABLET PO SCH (08:37)
[2016-12-26 08:50] LABS: Calcium 7.7 MG/DL (8.5-10.1); Magnesium 2.9 MG/DL (1.8-2.4); Potassium 4.2 MMOL/L (3.5-5.1)
[2016-12-26] MEDS: predniSONE 20 MG TABLET PO SCH (11:05)
[2016-12-26] MEDS ORDERED: SKIN HEALING OINT (AQUAPHOR) 50 GM TUBE TOP PRN (15:27)
[2016-12-26] MEDS ORDERED: CHLORHEXIDINE 4% SOLN 118 ML BOTTLE TOP ONE (15:27)
[2016-12-26] MEDS: ZOLPIDEM 5 MG TABLET PO SCH (20:10)
[2016-12-26] MEDS: ROSUVASTATIN 20 MG TABLET PO SCH (20:10)
[2016-12-26] MEDS: MONTELUKAST CHEW 5 MG TABLET PO SCH (20:10)
[2016-12-26] MEDS ORDERED: WARFARIN 1 MG TABLET PO SCH (20:15)
[2016-12-27] MEDS: ALBUTEROL 2.5 MG/3 ML NEB RESP TX SCH ×2 (00:50→07:20)
[2016-12-27 05:51] LABS: INR 1.3; PT Patient Result 13.2 SECS
[2016-12-27] MEDS: traMADol 50 MG TABLET PO PRN (06:36)
[2016-12-27] MEDS: LEVOTHYROXINE 25 MCG TABLET PO SCH (06:36)
[2016-12-27 07:49] VITALS: BP 118/73
[2016-12-27] MEDS: GABAPENTIN 400 MG CAPSULE PO SCH (08:49)
[2016-12-27] MEDS: predniSONE 20 MG TABLET PO SCH (08:50)
[2016-12-27] MEDS: DILTIAZEM CD 180 MG CAPSULE PO SCH (08:50)
[2016-12-27] MEDS: BISACODYL 5 MG TABLET PO SCH (08:51)
[2016-12-27] MEDS: TAMSULOSIN 0.4 MG CAPSULE PO SCH (08:51)
[2016-12-27] MEDS: DOCUSATE SODIUM 100 MG CAPSULE PO SCH (08:51)
[2016-12-27] MEDS: ASPIRIN EC 325 MG TABLET PO SCH (08:51)
[2016-12-27] MEDS: CITALOPRAM 20 MG TABLET PO SCH (08:51)
[2016-12-27] MEDS: METOPROLOL TARTRATE 25 MG TABLET PO SCH (08:51)
[2016-12-27] MEDS: PANTOPRAZOLE 40 MG TABLET PO SCH (08:51)
[2016-12-27] MEDS: FUROSEMIDE 80 MG TABLET PO SCH (08:51)
[2016-12-27] MEDS: SULFAMETHOX/TRIMETHOPRIM 800-160 MG TABLET PO SCH (08:52)
[2016-12-27] MEDS: COLLAGENASE OINT 30 GM TUBE TOP SCH (08:52)
[2016-12-27] MEDS: BUDESONIDE/FORMOTEROL 160-4.5 INHALER 6 GM INH SCH (08:52)
[2016-12-27] MEDS ORDERED: BACITRACIN OINT 0.9 GM PACK TOP SCH (09:00)
== END 2016-12-27 10:46 | DRG 187 ==
LOC: EDBD → EDUNIT# → N.ED 16:40 → N.EDINP 22:31 → N.TELES 23:46 → N.ICU 12-20 00:09 → N.TELES 12-20 15:06
PROVIDERS: ADMIT Thoracic Surgery (Cardiothoracic Vascular Surgery); ATTEND Thoracic Surgery (Cardiothoracic Vascular Surgery)

== ENCOUNTER 2019-09-03 00:30 | Observation (INO) ==
[2019-09-03] MEDS ORDERED: ASPIRIN 325 MG TABLET PO STA (00:49)
[2019-09-03] MEDS ORDERED: LORazepam 1 MG TABLET PO STA (01:10)
[2019-09-03 01:22] LABS: Basophils % 0.6 % (0.0-0.8); Eosinophils # 0.1 10*3/uL (0.0-0.87); Eosinophils % 1.2 % (0.00-10.9); Hematocrit 30.6 VOL% (42.0-52.0); Hemoglobin 9.4 GM/DL (14.0-18.0); Immature Granulocytes % 0.5 %; Immature Granulocytes Absolute 0.03 #; Lymphocytes # 0.8 10*3/uL (1.4-4.0); Lymphocytes % 12.2 % (21.2-54.2); Mean Corpuscular HGB Conc 30.7 GM/DL (32-36); Mean Corpuscular Volume 90.3 FL (87-102); Monocytes % 10.5 % (1.7-12.7); Platelet Count 322 T/CUMM (130-400); Red Blood Count 3.39 MC/CUMM (3.8-5.5); Red Cell Distribution Width 17.4 % (9.3-17.3); White Blood Count 6.5 T/CUMM (4-12)
[2019-09-03 01:34] LABS: INR 1.1; PT Patient Result 11.7 SECS (9.8-11.9); Partial Thromboplastin Time 28.8 SECS (23.9-33.8)
[2019-09-03 01:50] LABS: Albumin 3.6 G/DL (3.4-5.0); Bilirubin,Total 0.4 MG/DL (0.2-1.0); Calcium 8.1 MG/DL (8.5-10.1)
[2019-09-03 01:57] LABS: Troponin I 0.141 NG/ML (0.00-0.045)
[2019-09-03] MEDS ORDERED: ENOXAPARIN 100 MG/ML SYRINGE SUBCUT STA (02:03)
[2019-09-03] MEDS ORDERED: MORPHINE 4 MG/1 ML VIAL IV PRN (02:45)
[2019-09-03] MEDS ORDERED: hydrOXYzine HCL 25 MG TABLET PO PRN (02:45)
[2019-09-03] MEDS ORDERED: SODIUM CHLORIDE 0.9% 1,000 ML IV SCH (02:45)
[2019-09-03] MEDS ORDERED: ZALEPLON 5 MG CAPSULE PO PRN (02:45)
[2019-09-03] MEDS ORDERED: ACETAMINOPHEN 325 MG TABLET PO PRN (02:45)
[2019-09-03] MEDS ORDERED: ONDANSETRON 4 MG/2 ML VIAL IV PRN (02:45)
[2019-09-03 04:34] LABS: Basophils % 0.7 % (0.0-0.8); Eosinophils # 0.1 10*3/uL (0.0-0.87); Eosinophils % 1.8 % (0.00-10.9); Hematocrit 28.7 VOL% (42.0-52.0); Hemoglobin 8.7 GM/DL (14.0-18.0); Immature Granulocytes % 0.3 %; Immature Granulocytes Absolute 0.02 #; Lymphocytes # 1.2 10*3/uL (1.4-4.0); Lymphocytes % 19.9 % (21.2-54.2); Mean Corpuscular HGB Conc 30.3 GM/DL (32-36); Mean Corpuscular Volume 88.6 FL (87-102); Monocytes % 11.6 % (1.7-12.7); Neutrophils % 65.7 % (38.7-73.9); Platelet Count 268 T/CUMM (130-400); Red Blood Count 3.24 MC/CUMM (3.8-5.5); Red Cell Distribution Width 17.3 % (9.3-17.3)
[2019-09-03 05:05] LABS: Troponin I 0.153 NG/ML (0.00-0.045)
[2019-09-03 05:40] LABS: Albumin 3.1 G/DL (3.4-5.0); Bilirubin,Total 0.4 MG/DL (0.2-1.0); Calcium 8.5 MG/DL (8.5-10.1); Risk Ratio 1.59; Total Protein 6.7 G/DL (6.4-8.3); VLDL CHOLESTEROL 9.8 MG/DL
[2019-09-03 05:41] LABS: Osmolality,Calculated 274.7 MOS/KG (273-304)
[2019-09-03] MEDS ORDERED: ENOXAPARIN 40 MG/0.4 ML SYRINGE SUBCUT SCH (08:00)
[2019-09-03 08:33] LABS: Apearance,Urine CLEAR (Clear); Bilirubin,Urine Negative (Negative); Blood, Urine Negative (Negative); Glucose,Urine (UA) Negative (Negative); Ketones,Urine Negative (Negative); Nitrite,Urine Negative (Negative); Protein,Urine Negative; RBC,Urine 1 /HPF (0-4); Squamous Epithelial Cell,Urine Occasional /HPF (0-10); Urine Color Yellow (Yellow); Urine Specific Gravity > 1.060 (1.001-1.035); WBC,Urine <1 /HPF (0-6)
[2019-09-03] MEDS ORDERED: CITALOPRAM 20 MG TABLET PO SCH (09:00)
[2019-09-03] MEDS ORDERED: PANTOPRAZOLE 40 MG TABLET PO SCH ×2 (09:00→21:00)
[2019-09-03] MEDS ORDERED: DOCUSATE SODIUM 100 MG CAPSULE PO SCH (09:00)
[2019-09-03] MEDS ORDERED: TAMSULOSIN 0.4 MG CAPSULE PO SCH (09:00)
[2019-09-03] MEDS ORDERED: FUROSEMIDE 80 MG TABLET PO SCH (09:00)
[2019-09-03] MEDS ORDERED: POTASSIUM CHLORIDE 20 MEQ TABLET PO SCH (09:00)
[2019-09-03] MEDS ORDERED: GABAPENTIN 400 MG CAPSULE PO SCH (09:00)
[2019-09-03] MEDS ORDERED: ASPIRIN EC 81 MG TABLET PO SCH (09:00)
[2019-09-03] MEDS ORDERED: ASPIRIN CHEW 81 MG TABLET PO ONE (09:24)
[2019-09-03 14:23] VITALS: BP 133/69
[2019-09-03] MEDS ORDERED: WARFARIN 5 MG TABLET PO SCH ×2 (15:00→15:30)
[2019-09-03] MEDS ORDERED: LEVOTHYROXINE 25 MCG TABLET PO SCH (21:00)
[2019-09-03] MEDS ORDERED: ROSUVASTATIN 20 MG TABLET PO SCH (21:00)
[2019-09-04] MEDS ORDERED: WARFARIN 2.5 MG TABLET PO SCH (18:00)
== END 2019-09-03 17:00 | disposition home or self-care (01) ==
LOC: N.ED 00:30 → N.EDINP 00:30 → N.TELES 13:57
PROVIDERS: ADMIT Family Medicine; ATTEND Family Medicine